=== PATIENT | male | born 1940 | race Caucasian/White ===

== ENCOUNTER 2016-10-18 18:22 | Emergency (ER) | payer OTHER, MEDICARE ==
[~2016-10-18] VITALS: Ht 170.2 cm; Wt 104.3 kg
[~2016-10-18 18:22] MED LIST: ACETAMINOPHEN325 M2 PO; ACIDOPHILUS1 EACH PO; BUPROPION XL150 MG PO; CARBIDOPA/LEVOD1 TA1 PO; CARVEDILOL3.125 MG PO; CIPRO 500MG TA500 MG PO; CLONAZEPAM1 MG PO; COLACE100 M1 PO; COLCHICINE0.6 M2 PO; DELTASONE20 MG PO; DRONABINOL2.5 M1 PO; ENULOSE10 GM/151 PO; FLOMAX0.4 M1 PO; FOLIC ACID0.4 M1 PO; IMDUR ER30 MG PO; IPRAT-ALBUT 0.5-3 ML INH; K-TAB ER20 MEQ PO; KLONOPIN1 M1 PO; LASIX80 M1 PO; LASIX80 MG PO; LIDODERM 5% PAT1 PAT EXT; LIDODERM 5% PAT1 PAT TOP; LIPITOR20 M2 PO; METALAZONE PO; METOLAZONE5 MG PO; OXYCONTIN15 M1 PO; PERCOCET 10-321 EACH PO; PERCOCET 325 MG1 TA2 PO; PERCOCET 325 MG1 TAB PO; PROAIR HFA0.09 MG/Ac INH; SENNA8.6 M3 PO; SINEMET 25-1001 EACH PO; SPIRIVA18 MCG INH; SPIRONOLACTONE25 MG PO; SYMBICORT 16010.2 GM INH; SYNTHROID125 MCG PO; TRADJENTA5 M1 PO; TRADJENTA5 MG PO; TRAZODONE HCL50 M1 PO; TUSSIN DM CLEA PO; VENTOLIN HFA18 GM INH; VITAMIN D31000 UNI1 PO; XARELTO15 MG PO
--- NOTE | 2016-10-18 18:38 | ED DYSPNEA/ASTHMA COMPLAINT ---
History of Present Illness General Chief Complaint: Dyspnea (COPD, CHF, Other) Stated Complaint: BIBA FOR SHORTNESS OF BREATH Source: patient, old records, EMS Exam Limitations: clinical condition, poor historian Vital Signs & Intake/Output Vital Signs & Intake/Output Vital Signs Date Time Temp Pulse Resp B/P Pulse O2 O2 Flow FiO2 Ox Delivery Rate 10/18 2103 97.9 105 18 153/66 99 Room Air 10/18 1840 100 Nasal 2.0L Cannula 10/18 1830 95.8 108 16 137/68 99 Nasal 4.0L Cannula ED Intake and Output 10/19 0000 10/18 1200 Intake Total Output Total Balance Patient 230 lb Weight Allergies Coded Allergies: NO KNOWN ALLERGIES (03/11/12) Reconcile Medications Acetaminophen 325 MG TABLET 2 TAB PO Q4P PRN FEVEER/GENERAL DISCOMFORT ( Reported) Albuterol Sulfate (Ventolin Hfa) 90 MCG HFA.AER.AD 2 PUF INH BID COPD ( Reported) Atorvastatin Calcium (Lipitor) 20 MG TABLET 1 TAB PO DAILY CHOLESTEROL ( Reported) Budesonide/Formoterol Fumarate (Symbicort 160-4.5 Mcg Inhaler) 160 MCG-4.5 MCG/ ACTUATION HFA.AER.AD 2 PUF INH BID COPD (Reported) Bupropion HCl (Bupropion XL) 150 MG TAB.ER.24H 1 TAB PO QAM MENTAL HEALTH ( Reported) Carbidopa/Levodopa (Sinemet 25-100 MG Tablet) 25 MG-100 MG TABLET 2 TAB PO TID PARKINSONS (Reported) Carbidopa/Levodopa (Carbidopa-Levo ER 25-100 Tab) 25 MG-100 MG TABLET.ER 1 TAB PO DAILY PARKINSONS (Reported) Cholecalciferol (Vitamin D3) (Vitamin D3) (Unknown Strength) CAPSULE (Unknown Dose) PO DAILY SUPPLEMENT (Reported) Clonazepam (Klonopin) 1 MG TABLET 1 TAB PO DAILY ANXIETY (Reported) Colchicine 0.6 MG TABLET 1 TAB PO DAILY UNK (Reported) Docusate Sodium (Colace) (Unknown Strength) CAPSULE (Unknown Dose) PO BID STOOL SOFTENER (Reported) Dronabinol 2.5 MG CAPSULE 1 CAP PO QAM CHRONIC PAIN (Reported) Folic Acid 0.4 MG TABLET 1 TAB PO DAILY SUPPLEMENT (Reported) Furosemide (Lasix) 80 MG TABLET 1 TAB PO DAILY DIURETIC (Reported) Ipratropium/Albuterol Sulfate (Iprat-Albut 0.5-3(2.5) MG/3 Ml) 0.5 MG-3 MG (2.5 MG BASE)/3 ML AMPUL.NEB 1 ELIZABETH INH Q12 COPD (Reported) Lactobacillus Acidophilus (Acidophilus) 1 EACH CAPSULE 1 CAP PO BID PROBIOTIC (Reported) Levothyroxine Sodium (Synthroid) 125 MCG TABLET 1 TAB PO DAILY THYROID ( Reported) Linagliptin (Tradjenta) 5 MG TABLET 1 TAB PO DAILY DM (Reported) Morphine Sulfate (Unknown Strength) TABLET (Unknown Dose) PO BID PAIN ( Reported) Oxycodone HCl/Acetaminophen (Percocet 10-325 MG Tablet) 10 MG-325 MG TABLET 1 TAB PO BID PAIN (Reported) Potassium Chloride (K-Tab ER) 20 MEQ TABLET.ER 1 TAB PO BID SUPPLEMENT ( Reported) WITH FOOD Rivaroxaban (Xarelto) 15 MG TABLET 1 TAB PO DAILY BLOOD THINNER (Reported) Sennosides (Senna) 8.6 MG TABLET 2 TAB PO QPM CONSTIPATION (Reported) Tamsulosin HCl (Flomax) 0.4 MG CAP.ER.24H 1 CAP PO DAILY PROSTATE (Reported) Tiotropium [place] (Spiriva) 18 MCG CAP.W.DEV 1 CAP INH DAILY COPD (Reported) Trazodone HCl 50 MG TABLET 1 TAB PO DAILY UNKNOWN (Reported) Triage Note: BIBA FROM HOME FOR DIFFICULTY BREATHING. PT LIVES ALONE WITH 24 HOUR CAREGIVERS. PT UNABLE TO PROVIDE HISTORY. REPORTEDLY WAS GIVEN 2 NEBULIZER TREATMENTS AT HOME AND THEN CAREGIVERS CALLED EMS. UPON ARRIVAL PT LETHARGIC BUT ORIENTED, ANSWERING SOME QUESTIONS BUT NOT ALL OF THEM. RESP RATE 16. SATS 98% ON 2L. PALE, SKIN COOL AND DRY. Triage Nurses Notes Reviewed? 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 Patient has history of CHF, COPD, Parkinson's disease. Patient has 24 hour home care. Patient reportedly appeared to be dyspneic at home. Patient was administered 2 nebulizer treatments and 911 was called. Symptoms are currently mild. Chronic lower extremity pain, unchanged. Patient denies cough, fevers, chills, chest pain. (RG DELA CRUZ,HEMALATHA) Past History Travel History Traveled to [place] past 21 day No Medical History Any Pertinent Medical History? see below for history Neurological: Parkinson's disease EENT: NONE Cardiovascular: AFIB, CAD, CHF, hypertension, hyperlipidemia Respiratory: NONE, obstructive sleep apnea Gastrointestinal: NONE Hepatic: NONE Renal: benign prost hyperplasia, chronic kidney disease Musculoskeletal: chronic back pain Psychiatric: depression Endocrine: diabetes, hypothyroidism Blood Disorders: NONE Cancer(s): bladder cancer GROUNDS RESTORATION SPECIALIST/Reproductive: NONE History of MRSA: No History of VRE: No History of CDIFF: No Surgical History Surgical History: non-contributory Psychosocial History Who do you live with Paid Attentent Services at Home Home Health Aide What is your primary language Kyrgyz Family History Family History, If Any: MOTHER Hip fracture Relation not specified for: *No pertinent family history Hx Contributory? No (HEMALATHA BAIG) Review of Systems Review of Systems Constitutional: Reports: malaise. Denies: chills, fever. EENTM: Reports: no symptoms. Respiratory: Reports: short of breath. Denies: cough. Cardiovascular: Reports: peripheral edema. Denies: chest pain, syncope. GI: Denies: abdominal pain, nausea, vomiting. Genitourinary: Reports: no symptoms. Musculoskeletal: Reports: back pain (chronic, unchanged). Neurological/Psychological: Denies: headache. Hematologic/Endocrine: Reports: no symptoms. Immunologic/Allergic: Reports: no symptoms. (HEMALATHA BAIG) Physical Exam Physical Exam General Appearance: awake, mildly lethargic, responds to questions Head: atraumatic, normal appearance Eyes: Bilateral: normal appearance, PERRL, EOMI. Ears, Nose, Throat: hearing grossly normal Neck: normal inspection, supple, full range of motion Respiratory: normal breath sounds, chest non-tender, no respiratory distress, lungs clear Cardiovascular: regular rate/rhythm, murmur Gastrointestinal: soft, non-tender Extremities: normal capillary refill, normal range of motion, 2+ bilateral lower extremity edema Neurologic/Psych: awake, mild lethargy Skin: warm/dry Lymphatic: no anterior cervical malick Core Measures ACS in differential dx? Yes ASA ordered for poss ACS? No-ACS ruled out Severe Sepsis Present: No Septic Shock Present: No (HEMALATHA BAIG) Progress Differential Diagnosis: AMI, bronchitis, CHF, COPD, pulmonary embolism, pneumonia, unstable angina Plan of Care: Orders Procedure Date/time Status ARTERIAL BLOOD GAS (GEN) 10/18 1849 Complete Telemetry/Dust Puller 10/18 1849 Active TROPONIN LEVEL 10/18 1849 Complete COMPREHENSIVE METABOLIC PANEL 10/18 1849 Complete CBC WITHOUT DIFFERENTIAL 10/18 1849 Complete B-TYPE NATRIURETIC PEP (BNP) 10/18 1849 Complete EKG 10/18 1822 Active Laboratory Tests 10/18/161920: Anion Gap 11, Estimated GFR 34 L, BUN/Creatinine Ratio 20.0, Glucose 104 H, Calcium 9.2, Total Bilirubin 0.5, AST 18, ALT 21, Alkaline Phosphatase 74, Troponin I 0.04, [id number]-Z-Mgduysoixhv Pept 2420 H, Total Protein 6.9, Albumin 3.6, Globulin 3.3, Albumin/Globulin Ratio 1.1, CBC w Diff NO MAN DIFF REQ, RBC 3.56 L, MCV 89.5, MCH 29.0, RDW 15.6 H, MPV 8.8, Gran % 71.6, Lymphocytes % 14.4 L, Monocytes % 10.8 H, Eosinophils % 2.7, Basophils % 0.5, Absolute Granulocytes 5.8, Absolute Lymphocytes 1.2, Absolute Monocytes 0.9 H, Absolute Eosinophils 0.2, Absolute Basophils 0, PUBS MCHC 32.4 L 10/18/161899: pH 7.47 H, pCO2 39, pO2 69 L, HCO3 28, ABG O2 Sat (Measured) 94.0 L, P-50 ( Temp Corrected) Y, Carboxyhemoglobin 0.2 L, O2 Concentration % R/A, Temperature 95.8 L, Phlebotomy Draw Site LEFT RADIAL 10/18/2016 9:20:20 PM: Patient becoming more alert. No acute changes on labs or imaging. Discussed with Dr. Douglas. Patient has an appointment with his biometrics specialist this week. Appears stable for discharge. (RG DELA CRUZ,HEMALATHA) Diagnostic Imaging: Viewed by Me: Radiology Read. Discussed w/RAD: Radiology Read. CXR Impression: PATIENT: ANDRE GERBER PRESENT AGE: 76 PATIENT ACCOUNT NO: [id number] : 38 LOCATION: [facility] ORDERING PHYSICIAN: HEMALATHA DELA CRUZ SERVICE DATE: 10/18/16-1849 EXAM TYPE: RAD - XRY- PORTABLE CHEST XRAY EXAMINATION: XR PORTABLE CHEST CLINICAL INFORMATION: Dyspnea. Lower extremity swelling. Evaluate for congestive heart failure, pneumonia. COMPARISON: Multiple priors, most recent chest radiograph dated 08/28. TECHNIQUE: Portable AP semiupright view of the chest was obtained. FINDINGS: Sternal wires and mediastinal surgical clips are re-demonstrated. Severe degenerative changes are again noted within the bilateral glenohumeral joints. No airspace consolidation. No pleural effusion or pneumothorax. Stable cardiomediastinal silhouette. IMPRESSION: No airspace consolidation. No significant interval change since the prior examination. DICTATED BY: ZEESHAN BERMUDEZ MD DATE/TIME DICTATED:10/18/161924 MARINE FITTER:SINCERE DATE/TIME TRANSCRIBED:10/18/161924 CONFIDENTIAL, DO NOT COPY WITHOUT APPROPRIATE AUTHORIZATION. <Electronically signed in Other Vendor System> SIGNED BY: ZEESHAN BERMUDEZ MD 10/18/161932 Initial ED EKG: sinus tachycardia 170/m, left anterior fascicular block, no significant acute ST/T-wave changes compared to previous EKG Prior EKG: unchanged Rhythm Strip: sinus tachycardia (HEMALATHA BAIG) Departure Departure Disposition: HOME OR SELF CARE Condition: Stable Clinical Impression Primary Impression: Dyspnea Qualifiers: Dyspnea type: unspecified Qualified Code: R06.00 - Dyspnea, unspecified Referrals: Coby ALLAN MD (PCP/Family) Additional Instructions: Follow-up with your biometrics specialist this week as scheduled. Return to the emergency department if breathing worsening or worsening symptoms. Departure Forms: Customer Survey General Discharge Information (HEMALATHA BAIG) PA/DATE PITTER Co-Sign Statement Statement: ED Attending supervision documentation- [] I saw and evaluated the patient. I have also reviewed all the pertinent lab results and diagnostic results. I agree with the findings and the plan of care as documented in the PA's/DATE PITTER's documentation. [x] I have reviewed the ED Record and agree with the PA's/DATE PITTER's documentation. [] Additions or exceptions (if any) to the PAs/DATE PITTER's note and plan are summarized below: [] (MU JEAN,ADILENE Deras) Critical Care Note Critical Care Note Critical Care Time: non-applicable (HEMALATHA BAIG)
[2016-10-18] MEDS ORDERED: TRADJENTA5 M1 PO (18:57)
[2016-10-18] MEDS ORDERED: XARELTO15 M1 PO (18:57)
[2016-10-18] MEDS ORDERED: CARBIDOPA-LEVO1 EA10 PO (18:59)
[2016-10-18] MEDS ORDERED: MORPHINE SULFAT15 M4 PO (19:01)
[2016-10-18 19:29] LABS: ABSOLUTE BASOPHIL COUNT 0 /CUMM (0.0-0.2); ABSOLUTE EOSINOPHIL COUNT 0.2 /CUMM (0.0-0.7); ABSOLUTE GRANULOCYTE CT 5.8 /CUMM (1.4-6.5); ABSOLUTE LYMPH COUNT 1.2 /CUMM (1.2-3.4); ABSOLUTE MONOCYTE COUNT 0.9 /CUMM (0.10-0.60); BASOPHIL % 0.5 % (0.0-2.0); EOSINOPHIL % 2.7 % (0-5); GRANULOCYTE % 71.6 % (42.2-75.2); HEMATOCRIT 31.8 % (42-52); MEAN CORPUSCULAR HGB CONC 32.4 G/DL (33.0-37.0); MEAN CORPUSCULAR VOLUME 89.5 FL (80.0-94.0); MEAN PLATELET VOLUME 8.8 FL (7.4-10.4); PLATELET COUNT 178 /CUMM (130-400); RBC DISTRIBUTION WIDTH 15.6 % (11.5-14.5); RED BLOOD CELL CT 3.56 /CUMM (4.70-6.10); WHITE BLOOD CELL COUNT 8.1 /CUMM (4.8-10.8)
--- NOTE | 2016-10-18 19:33 | RADIOLOGY REPORT ---
EXAMINATION: XR PORTABLE CHEST CLINICAL INFORMATION: Dyspnea. Lower extremity swelling. Evaluate for congestive heart failure, pneumonia. COMPARISON: Multiple priors, most recent chest radiograph dated 08/28/2016. TECHNIQUE: Portable AP semiupright view of the chest was obtained. FINDINGS: Sternal wires and mediastinal surgical clips are re-demonstrated. Severe degenerative changes are again noted within the bilateral glenohumeral joints. No airspace consolidation. No pleural effusion or pneumothorax. Stable cardiomediastinal silhouette. IMPRESSION: No airspace consolidation. No significant interval change since the prior examination.
[2016-10-18 21:04] VITALS: BP 153/66
== END 2016-10-18 21:44 ==
LOC: ERH 18:22
PROVIDERS: Physician Assistant
DX: R06.00 Dyspnea, unspecified (principal)
CPT/HCPCS: 93005; 93010

== ENCOUNTER 2017-01-21 19:48 | Emergency (ER) | payer OTHER, MEDICARE ==
[~2017-01-21 19:48] MED LIST changes: +CARBIDOPA-LEVO1 EA10 PO; +MORPHINE SULFAT15 M4 PO; +XARELTO15 M1 PO
--- NOTE | 2017-01-21 20:11 | ED DYSPNEA/ASTHMA COMPLAINT ---
History of Present Illness General Chief Complaint: Dyspnea (COPD, CHF, Other) Stated Complaint: BIBA FOR SHORTNESS OF BREATH Source: patient, old records, EMS Exam Limitations: dementia Vital Signs & Intake/Output Vital Signs & Intake/Output Vital Signs Date Time Temp Pulse Resp B/P B/P Pulse O2 O2 Flow FiO2 Mean Ox Delivery Rate 01/21 2139 98.7 87 18 125/60 97 Room Air 01/21 2042 100 Room Air 01/21 2001 98.5 85 18 134/58 100 Room Air Allergies Coded Allergies: NO KNOWN ALLERGIES (03/11/12) Reconcile Medications Albuterol Sulfate (Ventolin Hfa) 90 MCG HFA.AER.AD 2 PUF INH BID PRN COPD ( Reported) Atorvastatin Calcium (Lipitor) 20 MG TABLET 1 TAB PO DAILY CHOLESTEROL ( Reported) Budesonide/Formoterol Fumarate (Symbicort 160-4.5 Mcg Inhaler) 160 MCG-4.5 MCG/ ACTUATION HFA.AER.AD 2 PUF INH BID COPD (Reported) Bupropion HCl (Bupropion XL) 150 MG TAB.ER.24H 1 TAB PO QAM MENTAL HEALTH ( Reported) Carbidopa/Levodopa (Sinemet 25-100 MG Tablet) 25 MG-100 MG TABLET 2 TAB PO TID PARKINSONS (Reported) Carbidopa/Levodopa (Carbidopa-Levo ER 25-100 Tab) 25 MG-100 MG TABLET.ER 1 TAB PO DAILY PARKINSONS (Reported) Cholecalciferol (Vitamin D3) (Vitamin D3) (Unknown Strength) CAPSULE (Unknown Dose) PO DAILY SUPPLEMENT (Reported) Clonazepam (Klonopin) 1 MG TABLET 1 TAB PO DAILY ANXIETY (Reported) Colchicine 0.6 MG TABLET 1 TAB PO DAILY UNK (Reported) Docusate Sodium (Colace) (Unknown Strength) CAPSULE (Unknown Dose) PO BID STOOL SOFTENER (Reported) Dronabinol 2.5 MG CAPSULE 1 CAP PO QAM CHRONIC PAIN (Reported) Fentanyl (Duragesic) 25 MCG/HOUR PATCH.TD72 1 PAT TOP AD PAIN (Reported) Furosemide (Lasix) 80 MG TABLET 1 TAB PO DAILY DIURETIC (Reported) Ipratropium/Albuterol Sulfate (Iprat-Albut 0.5-3(2.5) MG/3 Ml) 0.5 MG-3 MG (2.5 MG BASE)/3 ML AMPUL.NEB 1 ELIZABETH INH Q12 COPD (Reported) Levothyroxine Sodium (Synthroid) 125 MCG TABLET 1 TAB PO DAILY THYROID ( Reported) Linagliptin (Tradjenta) 5 MG TABLET 1 TAB PO DAILY DM (Reported) Oxycodone HCl/Acetaminophen (Percocet 10-325 MG Tablet) 10 MG-325 MG TABLET 1 TAB PO BID PAIN (Reported) Potassium Chloride (K-Tab ER) 20 MEQ TABLET.ER 1 TAB PO BID SUPPLEMENT ( Reported) WITH FOOD Rivaroxaban (Xarelto) 15 MG TABLET 1 TAB PO DAILY BLOOD THINNER (Reported) Sennosides (Senna) 8.6 MG TABLET 2 TAB PO QPM CONSTIPATION (Reported) Tamsulosin HCl (Flomax) 0.4 MG CAP.ER.24H 1 CAP PO DAILY PROSTATE (Reported) Tiotropium [place] (Spiriva) 18 MCG CAP.W.DEV 1 CAP INH DAILY COPD (Reported) Trazodone HCl 50 MG TABLET 1 TAB PO DAILY UNKNOWN (Reported) Vitamin B Complex 1 EACH CAPSULE 1 CAP PO DAILY SUPPLEMENT (Reported) Core Measure Meds Pre-Hospital xarelto Triage Note: PT BIBA AFTER PT COMPLAINT TO FAMILY AND EDGER HAND THAT HE FELT SOB. PER EMT REPORT PT HAS HAD STABLE VS, NO EXERTION WITH RESPIRATION, O2 SAT OF 98% ON RA. #20 TO LFA. NO MEDICATION GIVEN ON ROUTE. Triage Nurses Notes Reviewed? yes Onset: Just prior to arrival Duration: minute(s):, better Timing: recent history Severity: mild Activities at Onset: rest Prior Episodes/Possible Cause: frequent episodes Modifying Factors: Improves With: rest. Associated Symptoms: edema, weakness HPI: Prior to admission patient complained that he was short of breath. Currently he complains of chest pain unable to describe. He denies fever chills nausea vomiting diarrhea abdominal pain headache dysuria rash bleeding. Past History Travel History Traveled to [place] past 21 day No Medical History Any Pertinent Medical History? 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 No Review of Systems Review of Systems Constitutional: Reports: no symptoms. EENTM: Reports: no symptoms. Respiratory: Reports: see HPI, short of breath. Cardiovascular: Reports: see HPI, chest pain. GI: Reports: no symptoms. Genitourinary: Reports: no symptoms. Musculoskeletal: Reports: no symptoms. Skin: Reports: no symptoms. Neurological/Psychological: Reports: no symptoms. Hematologic/Endocrine: Reports: no symptoms. Immunologic/Allergic: Reports: no symptoms. All Other Systems: Reviewed and Negative Physical Exam Physical Exam General Appearance: well developed/nourished, alert, awake, comfortable Head: atraumatic, normal appearance Eyes: Bilateral: normal appearance, PERRL, EOMI. Ears, Nose, Throat: normal pharynx, normal ENT inspection Neck: normal inspection, supple, full range of motion, no midline tenderness Respiratory: chest non-tender, no respiratory distress, quiet respiration, crackles Cardiovascular: normal peripheral pulses, systolic murmur, irregularly irregular Peripheral Pulses: 4+ carotid (R), 4+ carotid (L) Gastrointestinal: normal bowel sounds, soft, non-tender, no organomegaly Extremities: limited range of motion, pedal edema Neurologic/Psych: awake, alert, psychologist clinical II-XII nml as tested, depressed affect Skin: rash (stasis dermatitis BLE) Lymphatic: no anterior cervical malick Core Measures ACS in differential dx? Yes ASA ordered for poss ACS? No-other contraindication Severe Sepsis Present: No Septic Shock Present: No Progress Differential Diagnosis: AMI, CHF, COPD, pneumonia Plan of Care: Orders Procedure Date/time Status TROPONIN LEVEL 01/22 2008 Complete PROTHROMBIN TIME 01/22 2008 Complete MAGNESIUM 01/22 2008 Complete COMPREHENSIVE METABOLIC PANEL 01/22 2008 Complete CBC WITHOUT DIFFERENTIAL 01/22 2008 Complete B-TYPE NATRIURETIC PEP (BNP) 01/22 2008 Complete EKG 01/21 1950 Active Laboratory Tests 01/21/172037: Anion Gap 13, Estimated GFR 42 L, BUN/Creatinine Ratio 23.8, Glucose 89, Calcium 8.4, Magnesium 1.7, Total Bilirubin 0.4, AST 13 L, ALT 30, Alkaline Phosphatase 56, Troponin I 0.04, Hrj-T-Jbuysuekzjz Pept 3070 H, Total Protein 6.4, Albumin 3.3 L, Globulin 3.1, Albumin/Globulin Ratio 1.1, PT 17.2 H, INR 1.65 H, CBC w Diff NO MAN DIFF REQ, RBC 3.27 L, MCV 91.2, MCH 29.7, RDW 15.3 H, MPV 8.1, Gran % 62.7, Lymphocytes % 20.3 L, Monocytes % 12.9 H, Eosinophils % 3.7, Basophils % 0.4, Absolute Granulocytes 4.7, Absolute Lymphocytes 1.5, Absolute Monocytes 1.0 H, Absolute Eosinophils 0.3, Absolute Basophils 0, PUBS MCHC 32.6 L Diagnostic Imaging: Viewed by Me: Radiology Read. Discussed w/RAD: Radiology Read. CXR Impression: Examination as the right costophrenic angle is outside the field -of-view the exam. Hazy opacity overlying the midlung of uncertain significance. This may be artifactual related to overlying soft tissue density. Suggest repeat chest x-ray as felt clinically necessary Initial ED EKG: AFIB, no ST T wave changes Prior EKG: changed Rhythm Strip: atrial fibrillation Departure Departure Time of Disposition: 2138 Disposition: HOME OR SELF CARE Condition: Stable Clinical Impression Primary Impression: CHF (congestive heart failure) Qualifiers: Congestive heart failure type: unspecified congestive heart failure type Congestive heart failure chronicity: acute on chronic Qualified Code: I50.9 - Heart failure, unspecified Referrals: Coby ALLAN MD Additional Instructions: Give extra lasix dose tonight. Departure Forms: Customer Survey General Discharge Information Critical Care Note Critical Care Note Critical Care Time: non-applicable
--- NOTE | 2017-01-21 20:26 | RADIOLOGY REPORT ---
EXAMINATION: XR PORTABLE CHEST CLINICAL INFORMATION: CHF. Rales compatible edema shortness of breath COMPARISON: Prior chest x-ray October 2016 TECHNIQUE: Portable frontal view of the chest was obtained. FINDINGS: Exam is limited as the right costophrenic angle is outside the [id number] with examination. Subtle opacity overlying the right midlung of uncertain etiology and significance. It is possible this could reflect overlying soft tissue density given its hazy appearance. Left lung clear. Sternotomy wires. Cardiac silhouette within normal limits. Pulmonary vascularity normal. IMPRESSION: Examination as the right costophrenic angle is outside the [id number] the exam. Hazy opacity overlying the midlung of uncertain significance. This may be artifactual related to overlying soft tissue density. Suggest repeat chest x-ray as felt clinically necessary
[2017-01-21] MEDS ORDERED: DURAGESIC1 EACH TOP (20:32)
[2017-01-21] MEDS ORDERED: VITAMIN B COMP1 EACH PO (20:42)
[2017-01-21 20:46] LABS: ABSOLUTE BASOPHIL COUNT 0 /CUMM (0.0-0.2); ABSOLUTE EOSINOPHIL COUNT 0.3 /CUMM (0.0-0.7); ABSOLUTE GRANULOCYTE CT 4.7 /CUMM (1.4-6.5); ABSOLUTE LYMPH COUNT 1.5 /CUMM (1.2-3.4); BASOPHIL % 0.4 % (0.0-2.0); EOSINOPHIL % 3.7 % (0-5); GRANULOCYTE % 62.7 % (42.2-75.2); HEMATOCRIT 29.8 % (42-52); MEAN CORPUSCULAR HGB 29.7 PG (27.0-31.0); MEAN CORPUSCULAR HGB CONC 32.6 G/DL (33.0-37.0); MEAN CORPUSCULAR VOLUME 91.2 FL (80.0-94.0); MEAN PLATELET VOLUME 8.1 FL (7.4-10.4); PLATELET COUNT 184 /CUMM (130-400); RBC DISTRIBUTION WIDTH 15.3 % (11.5-14.5); RED BLOOD CELL CT 3.27 /CUMM (4.70-6.10); WHITE BLOOD CELL COUNT 7.5 /CUMM (4.8-10.8)
[2017-01-21 20:51] LABS: PT 17.2 SEC (9.4-12.5)
[2017-01-21 21:39] VITALS: BP 125/60
== END 2017-01-21 21:55 ==
LOC: ERH 19:48
PROVIDERS: Emergency Medicine
DX: I50.9 Heart failure, unspecified (principal)
CPT/HCPCS: 93005; 93010

== ENCOUNTER 2017-10-21 15:05 | Inpatient (IN) | payer OTHER, MEDICARE ==
[~2017-10-21] VITALS: Ht 172.7 cm; Wt 80.9 kg
[~2017-10-21 15:05] MED LIST changes: +ALBUTEROL2.5 MG/3 M INH/SOL; +DURAGESIC1 EACH TOP; +VITAMIN B COMP1 EACH PO
--- NOTE | 2017-10-21 15:09 | ED DYSPNEA/ASTHMA COMPLAINT ---
See Addendum History of Present Illness General Chief Complaint: General Adult Stated Complaint: BIBA, LETHARGY Source: patient Exam Limitations: clinical condition, confusion Vital Signs & Intake/Output Vital Signs & Intake/Output Vital Signs Date Time Temp Pulse Resp B/P B/P Pulse O2 O2 Flow FiO2 Mean Ox Delivery Rate 10/21 1850 95 20 136/55 98 Room Air 10/21 1837 100 Room Air 10/21 1825 97.0 97 20 100/60 100 Room Air 10/21 1810 97.4 100 20 124/60 100 Room Air 10/21 1740 102 20 108/55 98 Room Air 10/21 1726 96 20 108/54 98 Room Air 10/21 1703 97.4 88 20 104/50 100 Room Air 10/21 1652 96 10/21 1645 101 20 98 Room Air 10/21 1553 95 20 116/46 100 Room Air 10/21 1514 90 20 93/55 97 Room Air Allergies Coded Allergies: NO KNOWN ALLERGIES (03/11/12) Reconcile Medications Atorvastatin Calcium (Lipitor) 20 MG TABLET 1 TAB PO DAILY CHOLESTEROL ( Reported) Bupropion HCl (Bupropion XL) 150 MG TAB.ER.24H 1 TAB PO QAM MENTAL HEALTH ( Reported) Carbidopa/Levodopa (Sinemet 25-100 MG Tablet) 25 MG-100 MG TABLET 2 TAB PO TID PARKINSONS (Reported) Carbidopa/Levodopa (Carbidopa-Levo ER 25-100 Tab) 25 MG-100 MG TABLET.ER 1 TAB PO QPM PARKINSONS (Reported) Cholecalciferol (Vitamin D3) (Vitamin D3) (Unknown Strength) CAPSULE (Unknown Dose) PO DAILY SUPPLEMENT (Reported) Clonazepam (Klonopin) 1 MG TABLET 1 TAB PO DAILY ANXIETY (Reported) Colchicine 0.6 MG TABLET 1 TAB PO DAILY UNK (Reported) Docusate Sodium (Colace) (Unknown Strength) CAPSULE (Unknown Dose) PO BID STOOL SOFTENER (Reported) Dronabinol 2.5 MG CAPSULE 1 CAP PO QAM CHRONIC PAIN (Reported) Fentanyl (Duragesic) 25 MCG/HOUR PATCH.TD72 1 PAT TOP Q3D PAIN (Reported) Furosemide (Lasix) 80 MG TABLET 1 TAB PO DAILY DIURETIC (Reported) Levothyroxine Sodium (Synthroid) 125 MCG TABLET 1 TAB PO DAILY THYROID ( Reported) Linagliptin (Tradjenta) 5 MG TABLET 1 TAB PO DAILY DM (Reported) Morphine Sulfate 15 MG TABLET 1 TAB PO 1400 PAIN (Reported) Oxycodone HCl/Acetaminophen (Percocet 10-325 MG Tablet) 10 MG-325 MG TABLET 1 TAB PO BID PAIN (Reported) Potassium Chloride (K-Tab ER) 20 MEQ TABLET.ER 1 TAB PO BID SUPPLEMENT ( Reported) WITH FOOD Rivaroxaban (Xarelto) 15 MG TABLET 1 TAB PO DAILY BLOOD THINNER (Reported) Sennosides (Senna) 8.6 MG TABLET 2 TAB PO QPM CONSTIPATION (Reported) Tamsulosin HCl (Flomax) 0.4 MG CAP.ER.24H 1 CAP PO DAILY PROSTATE (Reported) Vitamin B Complex 1 EACH CAPSULE 1 CAP PO DAILY SUPPLEMENT (Reported) Triage Nurses Notes Reviewed? yes Onset: Abrupt Duration: day(s): Timing: recent history Severity: mild HPI: 77-year-old male brought in for increased weakness and outpatient x-ray which showed pneumonia. Patient comes from home. He has altered mental status is not able to offer much information. EMT reports that he was diagnosed with pneumonia is now patient has had increased weakness. He is usually able to stand and. That is been laying in bed. Unable to provide any more information at this time. (Marvin Petty) Past History Travel History Traveled to [place] past 21 day No Medical History Any Pertinent Medical History? see below for history Neurological: dementia, Parkinson's disease EENT: NONE Cardiovascular: AFIB, CAD, CHF, hypertension, hyperlipidemia Respiratory: NONE, obstructive sleep apnea Gastrointestinal: NONE Hepatic: NONE Renal: benign prost hyperplasia, chronic kidney disease Musculoskeletal: chronic back pain Psychiatric: depression Endocrine: diabetes, hypothyroidism Blood Disorders: NONE Cancer(s): bladder cancer DIRECTOR SPEECH AND HEARING/Reproductive: NONE History of MRSA: No History of VRE: No History of CDIFF: No Surgical History Surgical History: non-contributory Psychosocial History Who do you live with Paid Attentent Services at Home Home Health Aide What is your primary language Upper Sorbian Family History Family History, If Any: MOTHER Hip fracture Relation not specified for: *No pertinent family history Hx Contributory? No (Marvin Petty) Review of Systems Review of Systems Constitutional: Reports: see HPI. EENTM: Reports: no symptoms. Respiratory: Reports: see HPI. Cardiovascular: Reports: no symptoms. GI: Reports: no symptoms. Genitourinary: Reports: no symptoms. Musculoskeletal: Reports: no symptoms. Skin: Reports: no symptoms. Neurological/Psychological: Reports: see HPI. Hematologic/Endocrine: Reports: no symptoms. Immunologic/Allergic: Reports: no symptoms. All Other Systems: Reviewed and Negative (Marvin Petty) Physical Exam Physical Exam General Appearance: lethargic, mild distress, thin Head: atraumatic Eyes: Bilateral: normal appearance. Ears, Nose, Throat: normal ENT inspection, hearing decreased Neck: normal inspection Respiratory: no respiratory distress, decreased breath sounds Cardiovascular: regular rate/rhythm Gastrointestinal: soft Extremities: no edema Neurologic/Psych: disoriented x 3 Skin: intact, normal color Core Measures ACS in differential dx? No CVA/TIA Diagnosis No Sepsis Present: Yes Sepsis Focused Exam Completed? Yes (Marvin Petty) Progress Differential Diagnosis: asthma, AMI, bronchitis, pneumonia, UTI, CVA, SEPSIS Plan of Care: Orders Procedure Date/time Status Patient Data 10/21 1942 Active Admit to inpatient 10/21 1926 Active RAPID VIRAL INFLUENZA A 10/21 1925 Active LACTIC ACID 10/21 1809 Complete BLOOD PRODUCT PICKUP 10/21 1756 Active TYPE & SCREEN (NOT X-MATCH) 10/21 1708 Active LOWER RESPIRATORY CULTURE 10/21 1641 Active Carbajal, Insertion/Removal/Asses 10/21 1621 Active CULTURE,URINE 10/21 1621 Active LEUKOCYTE POOR (PACKED CELLS) 10/21 1609 Active Add-on Test (ER Only) 10/[address] HEAD WO IV CONTRAST 10/21 1516 Active XRY-PORTABLE CHEST XRAY 10/21 1509 Active BLOOD CULTURE 10/21 1509 Active URINALYSIS 10/21 1509 Complete TROPONIN LEVEL 10/21 1509 Complete LACTIC ACID 10/21 1509 Complete COMPREHENSIVE METABOLIC PANEL 10/21 1509 Complete CBC WITHOUT DIFFERENTIAL 10/21 1509 Complete EKG 10/21 1509 Active Current Medications Sig/Cedrick Start time Last Medication Dose Stop Time Status Admin Sodium Chloride 500 ML BOLUS ONE 10/21 1915 AC 10/21 (Normal Saline 0.9%) 10/21 2013 1900 Sodium Chloride See Dose ONCE ONE 10/21 1630 UNir 10/21 (Normal Saline 0.9%) Insts (1) 10/21 1631 1700 Dose Instructions: (1)Sodium Chloride (Normal Saline 0.9%): FOR USE IN SEPSIS PROTOCOL INFUSE TOTAL AMOUNT OVER 2.5 HOURS Laboratory Tests 10/21/17 1814: Lactic Acid 4.0 H 10/21/17 1640: Urinalysis HEAVY H, Urine Color BROWN H, Urine Clarity TURBD H, Urine pH 5.0, Ur Specific [place] 1.025, Urine Protein >=300 H, Urine Ketones TRACE H, Urine Nitrite POS H, Urine Bilirubin MOD H, Urine Urobilinogen 1.0, Ur Leukocyte Esterase LARGE H, Ur Microscopic SEDIMENT EXAMINED, Urine RBC 5-10 H, Urine WBC PACKD H, Urine Bacteria MOD H, Urine Hemoglobin LARGE H, Urine Glucose NEG 10/21/17 1540: Anion Gap 19 H, Estimated GFR 17 L, BUN/Creatinine Ratio 34.0 H, Glucose 189 H, Lactic Acid 3.0 H, Calcium 8.5, Total Bilirubin 0.4, AST 75 H, ALT 24, Alkaline Phosphatase 117, Troponin I 0.22 *H, Total Protein 6.9, Albumin 3.2 L, Globulin 3.7, Albumin/Globulin Ratio 0.9 L, CBC w Diff NO MAN DIFF REQ, RBC 2.54 L, MCV 88.6, MCH 28.5, MCHC 32.1 L, RDW 17.0 H, MPV 9.1, Gran % 93.6 H, Lymphocytes % 3.0 L, Monocytes % 3.4, Eosinophils % 0, Basophils % 0, Absolute Granulocytes 25.2 H, Absolute Lymphocytes 0.8 L, Absolute Monocytes 0.9 H, Absolute Eosinophils 0, Absolute Basophils 0 Microbiology 10/21 193 NASOPHARYN: Influenza Virus A & B Rapid Smear - RECD 10/21 1641 LOWER RESP: Respiratory Culture - ORD 10/21 1641 LOWER RESP: Gram Stain - ORD 10/21 1640 URINE ROUT: Urine Culture - RECD 10/21 1632 BLOOD: Blood Culture - RECD 10/21 1540 BLOOD: Blood Culture - RECD Diagnostic Imaging: Viewed by Me: Radiology Read, CT Scan. Discussed w/RAD: Radiology Read, CT Scan. Initial ED EKG: normal sinus rhythm, ST elevation (III, aVF), ST depression (I, V5, V6) (Rex DELA CRUZ,Marvin) Departure Departure Disposition: STILL A PATIENT Condition: Stable Clinical Impression Primary Impression: Sepsis Secondary Impressions: Acute renal failure, Hyperkalemia, ST elevation (STEMI) myocardial infarction Referrals: Gertrude JEAN,Reginald Guevara (PCP/Family) Departure Forms: Customer Survey General Discharge Information Comments 10/21/2017 3:58:58 PM EKG reveals what looks to be a inferior wall AK. Cardiology was paged immediately and Dr. Mendiola has reviewed the EKG. his significant other that has been with him for 30 years reports that she does not want intubation or chest compressions. She reports that the patient has made it clear in the past that he wants to be a DNR/DNI. (Marvin Petty) Departure Comments I saw and personally examined the patient and I agree with the PAs evaluation and care. Altered mental status. Severe anemia. Leukocytosis. Probable sepsis. EKG shows inferior ST segment elevation AK-this was discussed with Fidel Rai MD. The patient was admitted to the ICU. He is DNR/DNI. (Maury ORDOÑEZ,Dimitris Ruano) ED Sepsis Exam Date of Focused Sepsis Exam: 10/21/17 Time of Focused Sepsis Exam: 1314 Sepsis Cardiac Exam: Regular Rate/Rhythm Sepsis Resp Exam: decreased Sepsis Cap Refill Exam: <2 Sec Sepsis Peripheral Pulse Exam: Normal Sepsis Peripheral Pulse Location: Radial Sepsis Skin Color Exam: Pale Skin Temp/Moisture Exam: Cool/Dry (Marvin Petty) Critical Care Note Critical Care Note Critical Care Time: 30-74 min (75) (Marvin Petty)
[2017-10-21] MEDS ORDERED: MORPHINE SULFAT15 M4 PO ×2 (15:39→22:32)
[2017-10-21 15:58] LABS: ABSOLUTE BASOPHIL COUNT 0 /CUMM (0.0-0.2); ABSOLUTE EOSINOPHIL COUNT 0 /CUMM (0.0-0.7); ABSOLUTE GRANULOCYTE CT 25.2 /CUMM (1.4-6.5); ABSOLUTE LYMPH COUNT 0.8 /CUMM (1.2-3.4); ABSOLUTE MONOCYTE COUNT 0.9 /CUMM (0.10-0.60); BASOPHIL % 0 % (0.0-2.0); EOSINOPHIL % 0 % (0-5); HEMATOCRIT 22.5 % (42-52); MEAN CORPUSCULAR HGB 28.5 PG (27.0-31.0); MEAN CORPUSCULAR HGB CONC 32.1 G/DL (33.0-37.0); MEAN CORPUSCULAR VOLUME 88.6 FL (80.0-94.0); MEAN PLATELET VOLUME 9.1 FL (7.4-10.4); PLATELET COUNT 334 /CUMM (130-400); RED BLOOD CELL CT 2.54 /CUMM (4.70-6.10)
[2017-10-21 16:15] LABS: GRANULOCYTE % 93.6 % (42.2-75.2)
--- NOTE | 2017-10-21 21:20 | CT SCAN REPORT ---
EXAMINATION: CT ABDOMEN AND PELVIS WITHOUT CONTRAST CLINICAL INFORMATION: Bladder cancer. Sepsis. No hydronephrosis. COMPARISON: 10/01/2015. TECHNIQUE: Contiguous axial thin section helical images of the abdomen and pelvis were performed without oral or IV contrast. The data set was reformatted in the coronal and sagittal planes and reviewed on an independent workstation. DLP: 502 mGy-cm. FINDINGS: There is a lateral basal segment right lower lobe infiltrate. There is medial left lower lobe airspace disease. The visualized portions of the heart are unremarkable. The liver is of normal size and attenuation without focal lesions nor intrahepatic biliary ductal dilation. A normal gallbladder is identified. There is no wall thickening or discernible pericholecystic fluid. The spleen, pancreas, adrenal glands are unremarkable. There is right grade 3 hydroureteronephrosis. There is moderate right hydroureter without a discernible obstructive calculus. There are nonobstructive calculi within the right kidney. The largest is within the interpole region measuring approximately 6 mm. There is no left hydronephrosis. There are left renal arterial vascular calcifications present. There is no abdominal free fluid. There is neither mesenteric nor retroperitoneal lymphadenopathy. There is sigmoid diverticulosis without evidence of diverticulitis; otherwise, unremarkable unopacified loops of small and large bowel are identified. There is no pelvic free fluid. The urinary bladder is partially filled. A Carbajal catheter is in place. There is neither pelvic nor inguinal lymphadenopathy. Bone windows: Neither sclerotic nor lytic bone lesions are identified. There is disc height loss within the lower lumbar spine. IMPRESSION: Right grade 3 hydroureteronephrosis without a demonstrable obstructive calculus. There are nonobstructive renal calculi. Diverticulosis without evidence of diverticulitis. Bilateral lower lobe infiltrates, right greater than left.
--- NOTE | 2017-10-21 21:25 | History & Physical ---
Mann Dunaway 10/21/172124: General Information and HPI MD Statement: I have seen and personally examined ZABRINAVALENTE and documented this H&P. Source of Information: old records, friend Exam Limitations: unable to give history, not alert/orientated, clinical condition History of Present Illness: This is a 77-year-old male with past medical history significant for chronic back pain, atrial fibrillation on Xarelto, CAD, CHF, hypertension, hyperlipidemia, BPH, bladder cancer, Parkinson's disease who was brought to the hospital for weakness, altered mental status, and leukocytosis. The patient is not able to provide any history. History was obtained from patient's friend Ms. Subha Vael. According to Ms. Vale, the patient lives with a home designer, he has been feeling weaker compared to his baseline for the past week also noted to have hematuria. He was seen by his PCP yesterday and was started on Cefuroxime for suspected pneumonia. During the office visit, labs were obtained. The PCP called and notified them that the patient needs to go to the emergency room because WBC is elevated to 25,000. The patient was not noted to have any fever, chills, chest pain, difficulty breathing at home. 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 She also mentions that the patient does not have any living will or POA assigned and she is not comfortable making decisions whether patient should be DNI DNR. Ms. Vale also spoke with patient's daughter was not comfortable signing DNI/DNR order. I asked if the daughter wants to be involved in medical decision making and informing case there is any change in patient's status, per Petar Akanksha, the daughter does not want to be involved in medical decision making and will communicate with Ms. Vale if necessary. Allergies/Medications Allergies: Coded Allergies: NO KNOWN ALLERGIES (03/11/12) Home Med list Atorvastatin Calcium (Lipitor) 20 MG TABLET 1 TAB PO DAILY Hyperlipidemia ( Reported) Bupropion HCl (Bupropion XL) 150 MG TAB.ER.24H 1 TAB PO DAILY Mental health ( Reported) Carbidopa/Levodopa (Carbidopa-Levodopa 25-100 Tab) 25 MG-100 MG TABLET 2 TAB PO TID Parkinson (Reported) Docusate Sodium (Colace) 100 MG CAPSULE 1 CAP PO BID Stool softener (Reported ) Dronabinol (Marinol) 2.5 MG CAPSULE 1 CAP PO BID cancer (Reported) Fentanyl (Duragesic) 25 MCG/HOUR PATCH.TD72 1 PAT TOP Q3D pain (Reported) Furosemide (Lasix) 80 MG TABLET 1 TAB PO DAILY Diuretic (Reported) Levothyroxine Sodium (Synthroid) 125 MCG TABLET 1 TAB PO DAILY Thyroid ( Reported) Linagliptin (Tradjenta) 5 MG TABLET 1 TAB PO DAILY DM (Reported) Morphine Sulfate 15 MG TABLET 1 TAB PO BIDP PRN Pain (Reported) Oxycodone HCl/Acetaminophen (Endocet 10-325 MG Tablet) 10 MG-325 MG TABLET 1 TAB PO BIDP PRN Pain (Reported) Potassium Chloride 20 MEQ PACKET 20 MEQ PO DAILY Supplement (Reported) Rivaroxaban (Xarelto) 15 MG TABLET 1 TAB PO DAILY A.fib (Reported) Tamsulosin HCl (Flomax) 0.4 MG CAP.ER.24H 1 CAP PO DAILY prostate (Reported) Trazodone HCl 50 MG TABLET 0.5 TAB PO QPM Insomnia (Reported) Vitamin B Complex 1 EACH CAPSULE 1 TAB PO DAILY Supplement (Reported) Past History Travel History Traveled to [place] past 21 day No Medical History Neurological: dementia, Parkinson's disease EENT: NONE Cardiovascular: AFIB, CAD, CHF, hypertension, hyperlipidemia Respiratory: COPD, obstructive sleep apnea Gastrointestinal: NONE Hepatic: NONE Renal: benign prost hyperplasia, chronic kidney disease Musculoskeletal: chronic back pain, spinal stenosis Psychiatric: depression Endocrine: diabetes, hypothyroidism Blood Disorders: NONE Cancer(s): bladder cancer DIRECTOR OF DIAGNOSTIC IMAGING/Reproductive: NONE History of MRSA: No History of VRE: No History of CDIFF: No Surgical History Surgical History: non-contributory Past Family/Social History Family History Relations & Conditions if any MOTHER Hip fracture Relation not specified for: *No pertinent family history Psychosocial History Who Do You Live With? non destructive tester Services at Home: Home Health Aide ETOH Use: denies use Illicit Drug Use: denies illicit drug use Functional Ability ADLs Independent: eating. Needs Assist: dressing, toileting, bathing. Ambulation: walker IADLs Independent: telephone. Needs Assist: shopping, housework, finances, food prep, transportation, medication admin. Review of Systems Review of Systems Constitutional: Reports: see HPI. Comments The patient is unable to provide any history. Exam & Diagnostic Data Last 24 Hrs of Vital Signs/I&O Vital Signs Date Time Temp Pulse Resp B/P B/P Pulse O2 O2 Flow FiO2 Mean Ox Delivery Rate 10/21 2231 96.0 110 26 116/72 / 2139 96.0 110 26 116/72 92 Room Air 10/21 1940 95.8 110 30 135/85 86 Room Air 10/21 1850 95 20 136/55 98 Room Air 10/21 1837 100 Room Air 10/21 1825 97.0 97 20 100/60 100 Room Air 10/21 1810 97.4 100 20 124/60 100 Room Air 10/21 1740 102 20 108/55 98 Room Air 10/21 1726 96 20 108/54 98 Room Air 10/21 1703 97.4 88 20 104/50 100 Room Air 10/21 1652 96 / 1645 101 20 98 Room Air 10/21 1553 95 20 116/46 100 Room Air 10/21 1514 90 20 93/55 97 Room Air Intake & Output 10/22 0800 10/22 0000 10/21 1600 Intake Total 1800 Output Total 40 Balance 1760 Intake, IV 1800 Output, Urine 40 Patient 132 lb Weight Weight Kirsten Lift Measurement Method Physical Exam General Appearance No Acute Distress Skin Stage 1 sacral decubitus ulcer Sepsis Skin Exam (color): Normal for Ethnicity HEENT Atraumatic, dry Mucous membrane Neck Supple, No JVD Lymphatic Axillary nl, Cervical nl Cardiovascular Normal S1, Normal S2, systolic murmur Lungs decreased breath sounds. Abdomen Normal Bowel Sounds, Soft, No Tenderness, No Hepatospenomegaly, No Masses Neurological Normal Tone Extremities No Clubbing, No Cyanosis, No Edema, Normal Pulses, No Tenderness/ Swelling Vascular Normal Pulses, Pulses Symmetrical Sepsis Peripheral Pulse Location: Dorsalis Pedis Sepsis Peripheral Pulse Exam: Normal Sepsis Cap Refill Exam: <2 Sec Last 24 Hrs of Labs/Buster: Laboratory Tests 10/22/17 0058: Sodium Pending, Potassium Pending, Chloride Pending, Carbon Dioxide Pending, Anion Gap Pending, BUN Pending, Creatinine Pending, Glucose Pending, Lactic Acid Pending, Calcium Pending, Phosphorus Pending, Magnesium Pending, Total Bilirubin Pending, AST Pending, ALT Pending, Albumin Pending, CBC w Diff Pending, WBC Pending, RBC Pending, Hgb Pending, Hct Pending, MCV Pending, MCH Pending, MCHC Pending, RDW Pending, Plt Count Pending, MPV Pending 10/22/17 0000: Hemoglobin A1c Pending 10/21/17 2200: Anion Gap 17 H, Estimated GFR 18 L, Glucose 109 H, Calcium 8.2 L, Phosphorus 6.5 H, Magnesium 1.9, Total Bilirubin 0.9, AST 83 H, ALT 25, Troponin I 0.27 * H, Albumin 2.7 L 10/21/17 2115: Urine Opiates Screen 210.00, Methadone Screen < 40, Barbiturate Screen < 60, Ur Phencyclidine Scrn < 6.00, Amphetamines Screen 420, U Benzodiazepines Scrn < 85, Urine Cocaine Screen < 50, Urine Cannabis Screen 22.30 10/21/17 1814: Lactic Acid 4.0 H 10/21/17 1640: Urinalysis HEAVY H, Urine Color BROWN H, Urine Clarity TURBD H, Urine pH 5.0, Ur Specific [place] 1.025, Urine Protein >=300 H, Urine Ketones TRACE H, Urine Nitrite POS H, Urine Bilirubin MOD H, Urine Urobilinogen 1.0, Ur Leukocyte Esterase LARGE H, Ur Microscopic SEDIMENT EXAMINED, Urine RBC 5-10 H, Urine WBC PACKD H, Urine Bacteria MOD H, Urine Hemoglobin LARGE H, Urine Glucose NEG 10/21/17 1540: Anion Gap 19 H, Estimated GFR 17 L, BUN/Creatinine Ratio 34.0 H, Glucose 189 H, Lactic Acid 3.0 H, Calcium 8.5, Total Bilirubin 0.4, AST 75 H, ALT 24, Alkaline Phosphatase 117, Troponin I 0.22 *H, Total Protein 6.9, Albumin 3.2 L, Globulin 3.7, Albumin/Globulin Ratio 0.9 L, CBC w Diff NO MAN DIFF REQ, RBC 2.54 L, MCV 88.6, MCH 28.5, MCHC 32.1 L, RDW 17.0 H, MPV 9.1, Gran % 93.6 H, Lymphocytes % 3.0 L, Monocytes % 3.4, Eosinophils % 0, Basophils % 0, Absolute Granulocytes 25.2 H, Absolute Lymphocytes 0.8 L, Absolute Monocytes 0.9 H, Absolute Eosinophils 0, Absolute Basophils 0 10/21/17 1000: Sodium Cancelled, Potassium Cancelled, Chloride Cancelled, Carbon Dioxide Cancelled, Anion Gap Cancelled, BUN Cancelled, Creatinine Cancelled, Glucose Cancelled, Calcium Cancelled, Phosphorus Cancelled, Magnesium Cancelled, Total Bilirubin Cancelled, AST Cancelled, ALT Cancelled, Albumin Cancelled 10/21/17 1000: Sodium Cancelled, Potassium Cancelled, Chloride Cancelled, Carbon Dioxide Cancelled, Anion Gap Cancelled, BUN Cancelled, Creatinine Cancelled, Glucose Cancelled, Calcium Cancelled, Phosphorus Cancelled, Magnesium Cancelled, Total Bilirubin Cancelled, AST Cancelled, ALT Cancelled, Albumin Cancelled Microbiology 10/21 2330 UPPER RESP: Surveillance Culture - RECD 10/21 2330 GI: Surveillance Culture - RECD 10/21 1930 NASOPHARYN: Influenza Virus A & B Rapid Smear - COMP 10/21 1641 LOWER RESP: Respiratory Culture - ORD 10/21 1641 LOWER RESP: Gram Stain - ORD 10/21 1640 URINE ROUT: Urine Culture - RECD 10/21 1632 BLOOD: Blood Culture - RECD 10/21 1540 BLOOD: Blood Culture - RECD Diagnostic Data EKG Results Sinus rhythm, rate 100, right bundle branch block, ST depression in V4, V5, ? ST elevation in lead 3. QTC 522. Other Results Abdomen/pelvis CT: Right grade 3 hydroureteronephrosis without a demonstrable obstructive calculus. There are nonobstructive renal calculi. Diverticulosis without evidence of diverticulitis. Bilateral lower lobe infiltrates, right greater than left. Assessment/Plan Assessment: This is a 77-year-old male with past medical history significant for chronic back pain, atrial fibrillation on Xarelto, CAD, CHF, hypertension, hyperlipidemia, BPH, bladder cancer, Parkinson's,? Diabetes who was brought to the hospital for weakness, altered mental status, and leukocytosis. Upon presentation to the ED, he was noted to have leukocytosis to 27, hemoglobin 7.2, hematocrit 22.5, potassium 6.4, BUN 119, creatinine 3.5, lactic acid 3, troponin 0.22, positive UA. Assessment/plan: #Sepsis likely secondary to UTI versus pneumonia: He received IV vancomycin and ceftazidime 1 in the ED. Blood cultures and urine culture pending. Blood culture in 2014 positive for Escherichia coli sensitive to cefazolin, gentamicin , nitrofurantoin, amoxicillin clavulanic acid, ciprofloxacin. Will start the patient on IV ceftriaxone. He will benefit from aggressive hydration, extremely dehydrated during physical exam. Will trend lactate. #Hyperkalemia: The patient presented with potassium level of 6.4, received insulin, glucose, calcium in the ED. Repeat potassium was 6.2. Discussed with the educational resource coordinator on-call, Dr. Cole if there is any indication for an urgent dialysis given change in mental status and elevated potassium level. Dr. Cole recommends to try insulin and glucose every 2-4 hours, calcium gluconate up to every 2 hours, albuterol 20 mg every 4 hours depending on potassium levels. He also recommends will administer sodium bicarbonate 50 meq 3, and try to use K oxalate rectally or via NG tube. Will monitor potassium levels closely. #Acute blood loss anemia:Likely secondary to hematuria, has received 1 unit PRBC in the ED. Will monitor H&H closely, will hold Xarelto. #BLAIR: The patient presented with creatinine level of 3.5; baseline is 1.6 in . Aggressive IV hydration. #Positive troponins with EKG changes: The patient is tachycardic with above- mentioned changes in the EKG and positive troponin. I spoke with ore dryer on-call, Dr. Dean. Patient's Xarelto has been held secondary to acute blood loss anemia. He recommends to try to slow the heart rate; even though some degree of tachycardia is expected in acute anemia and sepsis, it is better to slow the heart rate to reduce the pressure on the heart given positive troponin and EKG change. Recommends 5 mg IV Lopressor 1 and if blood pressure allows start the patient on Nitropaste. Also give low dose aspirin 1. Will order echocardiogram, will trend troponin and EKG. #Right grade 3 hydroureteronephrosis: Urology consult placed in the ED. #?DM: Hb a1c 6.7 in 2016. Med list has Tradjenta however unclear if the patient has been taking this. Will add accuchecks q4 while NPO. Consider Ins SS. #Diet: NPO, on nectar thickened liquids and mechanical soft diet at baseline. Will order swallow evaluation. #DVT prophylaxis with ALPS. #Code status: Patient was DNI/DNR during previous admissions however patient's friend states that she is not comfortable making any decision regarding patient's CODE STATUS also patient does not have any living will or POA, also patient's daughter told Ms. Vale that she would not be comfortable signing DNR/DNI order. Will keep the patient Full code at this point. Will consult psych to determine capacity. #Please confirm medications in the morning. As Ranked By This Provider Problem List: 1. Hyperkalemia 2. Acute renal failure 3. Sepsis Core Measures/Misc (05/23) Acute Coronary Syndrome ACS Diagnosis: No Congestive Heart Failure Congestive Heart Failure Diagnosis No Cerebrovascular Accident CVA/TIA Diagnosis: No VTE (View Protocol) VTE Risk Factors Age>40 No Mechanical VTE Prophylaxis d/t N/A MechProphylax Ordered No VTE Pharm Prophylaxis d/t Bleeding (Active) Sepsis (View protocol) Sepsis Present: Yes Melia Maldonado 10/22/17 0334: Attending MD Review Statement Attending Statement Attending MD Statement: examined this patient, discuss w/resident/PA/PRESS BOX CUSTODIAN, agreed w/resident/PA/PRESS BOX CUSTODIAN, reviewed EMR data (avail), reviewed images, amended to note Attending Assessment/Plan: CC: Lethargy PMH: chronic back pain, a fib, CAD s/p CABG, HF, HTN, HLD, BPH, CKD, DM, hypothyroidism, Parkinson's Disease, Bladder mass History is from chart and patient's friend Subha Vale. Patient has a health aide at home. She was more lethargic and weak so Xray was obtained outpatient and he was started on PO antibiotics but today his labs were repeated, which showed significant leukocytosis patient was getting more weak and lethargic, so his friend brought him to ER. He has "vocal cord problem" according to her and is on Nector thick. Patients aide or non destructive tester did not notice any fever, chills, nausea, vomiting, worsening of cough. Patient's friend is aware of his bladder mass and he is expecting urological procedure next week. Given his mental status and friend not being bedside history is limited. Vitals: Temperature 97.4, pulse 95, RR 20, blood pressure 116/46, saturating 100 % on room air On exam: Patient answers in yes or no, oriented that he is in hospital and this is winter, he mumbles for some questions and follows few instructions. He appears lethargic, pupils equal reactive bilaterally, mucosa dry, no JVD, no obvious lymphadenopathy CVS: S1-S2 RRR, RS: Mild rhonchi bilaterally, no crackles or crepitations. He has stage I pressure sore, with a small stage II wound on coccyx. Abdomen: Soft, nontender, no CVA tenderness, no suprapubic tenderness, Carbajal catheter draining pinkish urine. BIlat LE edema, Blister on medial aspect of right leg CT abdomen and pelvis: Right grade 3 hydroureteronephrosis without a demonstrable obstructive calculus. There are nonobstructive renal calculi. Diverticulosis without evidence of diverticulitis. Bilateral lower lobe infiltrates, right greater than left. Assessment and plan 77-year-old male with multiple comorbidities appears bedridden at baseline, exact baseline unknown, was brought in ER by friend for him being more lethargic and weak and his WBC count was elevated outpatient. A day before he was told that he has pneumonia and was started on by mouth antibiotics. Patient's friend or health aide is not aware of any fever or chills, no cough. Patient has bladder mass awaiting further evaluation. Patient is usually admitted to [facility]. Currently he is found to have multiple medical problems # significant leukocytosis with left shift: Most likely on initial impression to. That he may have UTI most likely cystitis but pyelonephritis should be ruled out. CT abdomen and pelvis was repeated and there is no evidence of pyelonephritis. Additionally patient is also found to have bibasilar infiltrates right more than left. Given his trouble swallowing, he appears to have aspiration pneumonia. He appears in severe sepsis secondary to pneumonia and UTI - Admit to ICU - Continue as telemetry - Every hourly vitals - Aggressive hydration for at least 4-5 L normal saline - Follow up urine culture, blood culture - Initially plan was to start ceftriaxone but given his pulmonary infiltrate he would benefit from Unasyn which will cover both infections - Swallow evaluation in morning - Nothing by mouth except meds for now - Critical care consult # Hypotension : Patient appears to have low blood pressure with tachycardia, most likely secondary to sepsis. - Aggressive hydration as mentioned above - If persistently hypotensive then peripheral Levophed should be started - Obtain a consent from patient's friend for central line - Trend lactate - Hold Lasix, antihypertensives # Metabolic encephalopathy: probably secondary to sepsis with underlying suspected dementia with Parkinson's disease, look for extra fentanyl patches on the body, obtain U tox # Hyperkalemia : Secondary to acute kidney injury. Patient was given insulin, dextrose, calcium gluconate while in ER. By mouth Kayexalate was suggested but according to ICU nurse patient cannot take by mouth (ER nurse give patient aspirin orally which he swallowed without trouble), NG tube was attempted but according to ICU nurse documentation patient refused. In that situation patient needs closer monitoring for potassium. Sterile Supply Technician was called who suggested rectal kayxelate and repeated potassium and Calcium gluconate, insulin and albuterol treatments as required # BLAIR on CKD (baseline 1.6) : appears pre-renal secondary to sepsis and dehydration : - continue aggressive hydration - Strict I's and O's - Continue Carbajal catheter - Hold colchicine # Elevated troponin : Most likely secondary to demand ischemia in setting of dehydration and sepsis, decreased clearance secondary to BLAIR is a possibility. But ECG shows repolarization abnormality - Cardiology was consulted - Continue aspirin, atorvastatin - Hold beta niecy for now if patient is hypotensive - Serial troponin and ECGs - 2-D echocardiogram # Anemia : Appears secondary to blood loss. Guaiac positive but no shawn blood, patient had significant blood loss in the urine which might be responsible for his anemia - Type and screen and transfuse 1 unit - Type and screen 1 more unit - Repeat H&H in 6-8 hours - Transfuse if required - Hold Anticogagulation # Bladder mass with hematuria : Consult urology # There is ambiguous history of diabetes: medication list has oral hypoglycemic, hold oral hypoglycemics, continue Accu-Cheks, if blood sugar is elevated then add sliding scale insulin. # Pressure ulcer : Wound care consult, barrier cream, repeated turning, does not appear infected. # DVT prophylaxis with Alps only Need to confirm his medications in morning and resume from tomorrow. # Goals of care: Patient appears physically deconditioned with underlying multiple comorbidities and baseline is unclear at this point. Patient is critically ill and this condition was informed to patient's friend who is noted as next to kin. She states that as she is not immediate family member she cannot make a decision regarding CODE STATUS of the patient. Patient has a daughter who does not want to be enlarged in his care. Patient states that he does not have any POA. When asked about CODE STATUS per patient he remains silent for long time. For now patient is full code and all aggressive measures but all attempts should be made to recontact his family in this setting. TTS 41 min
--- NOTE | 2017-10-21 21:55 | Cons- Urology ---
General Information and HPI Consulting Request Date of Consult: 10/21/17 Requested By: Melia Maldonado MD Reason for Consult: persistent right hydro with BLAIR/dehydration/anemia/hyperkalemia, and sepsis Source of Information: old records Exam Limitations: not alert/orientated History of Present Illness: 77 year old recently discharged (sep 2017) who returns reportedlywith MS change and fever/tachycardic. 77-year-old male with a past medical history of chronic back pain,atrial fibrillation, coronary artery disease, CHF, hypertension, hyperlipidemia, BPH, CKD, diabetes, hypothyroidism presented to [facility] from home complaining of increased back pain, and left hip pain. Note to have signifiant. Allergies/Medications Allergies: Coded Allergies: NO KNOWN ALLERGIES (03/11/12) Home Med List: Atorvastatin Calcium (Lipitor) 20 MG TABLET 1 TAB PO DAILY Hyperlipidemia ( Reported) Bupropion HCl (Bupropion XL) 150 MG TAB.ER.24H 1 TAB PO DAILY Mental health ( Reported) Carbidopa/Levodopa (Carbidopa-Levodopa 25-100 Tab) 25 MG-100 MG TABLET 2 TAB PO TID Parkinson (Reported) Docusate Sodium (Colace) 100 MG CAPSULE 1 CAP PO BID Stool softener (Reported ) Dronabinol (Marinol) 2.5 MG CAPSULE 1 CAP PO BID cancer (Reported) Fentanyl (Duragesic) 25 MCG/HOUR PATCH.TD72 1 PAT TOP Q3D pain (Reported) Furosemide (Lasix) 80 MG TABLET 1 TAB PO DAILY Diuretic (Reported) Levothyroxine Sodium (Synthroid) 125 MCG TABLET 1 TAB PO DAILY Thyroid ( Reported) Linagliptin (Tradjenta) 5 MG TABLET 1 TAB PO DAILY DM (Reported) Morphine Sulfate 15 MG TABLET 1 TAB PO BIDP PRN Pain (Reported) Oxycodone HCl/Acetaminophen (Endocet 10-325 MG Tablet) 10 MG-325 MG TABLET 1 TAB PO BIDP PRN Pain (Reported) Potassium Chloride 20 MEQ PACKET 20 MEQ PO DAILY Supplement (Reported) Rivaroxaban (Xarelto) 15 MG TABLET 1 TAB PO DAILY A.fib (Reported) Tamsulosin HCl (Flomax) 0.4 MG CAP.ER.24H 1 CAP PO DAILY prostate (Reported) Trazodone HCl 50 MG TABLET 0.5 TAB PO QPM Insomnia (Reported) Vitamin B Complex 1 EACH CAPSULE 1 TAB PO DAILY Supplement (Reported) Current Medications: Current Medications Sig/Cedrick Start time Last Medication Dose Route Stop Time Status Admin Calcium Gluconate 1 GM ONCE ONE 10/21 1700 DC 10/21 Sodium Chloride 100 ML IV 10/21 1759 1710 Ceftazidime 0 .STK-MED ONE 10/21 1659 DC .ROUTE Ceftazidime 1,000 MG ONCE ONE 10/21 1630 DC 10/21 IV 10/21 1631 1659 Ceftriaxone Sodium 2,000 MG DAILY 10/22 1000 AC IV Dextrose 25 GM ONCE ONE 10/21 1700 DC 10/21 IV 10/21 1701 1659 Insulin Human Regular 10 UNITS ONCE ONE 10/21 1700 DC 10/21 IV 10/21 1701 1659 Sodium Chloride 500 ML BOLUS ONE 10/21 1915 DC 10/21 IV 10/21 2014 1900 Sodium Chloride See Dose ONCE ONE 10/21 1630 UNir 10/21 Insts (1) IV 10/21 1631 1700 Sodium Chloride 1,000 ML BOLUS ONE 10/21 1545 DC 10/21 IV 10/21 1744 1550 Vancomycin HCl 1,000 MG ONCE ONE 10/21 1630 DC 10/21 Dextrose/Water 250 ML IV 10/21 1729 1810 Dose Instructions: (1)Sodium Chloride: FOR USE IN SEPSIS PROTOCOL INFUSE TOTAL AMOUNT OVER 2.5 HOURS Past History Medical History Neurological: dementia, Parkinson's disease EENT: NONE Cardiovascular: AFIB, CAD, CHF, hypertension, hyperlipidemia Respiratory: COPD, obstructive sleep apnea Gastrointestinal: NONE Hepatic: NONE Renal: benign prost hyperplasia, chronic kidney disease Musculoskeletal: chronic back pain, spinal stenosis Psychiatric: depression Endocrine: diabetes, hypothyroidism Blood Disorders: NONE Cancer(s): bladder cancer CERTIFIED MEDICAL TRANSCRIPTIONIST/Reproductive: NONE Surgical History Pertinent Surgical History: non-contributory Family History Relations & Conditions If Any: MOTHER Hip fracture Relation not specified for: *No pertinent family history Psychosocial History Who Do You Live With? 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 Needs Assist: dressing, toileting, bathing. Ambulation: walker IADLs Independent: telephone. Needs Assist: shopping, housework, finances, food prep, transportation, medication admin. Employment History Retired? yes Exam & Diagnostic Data Vital Signs and I&O Vital Signs Date Time Temp Pulse Resp B/P B/P Pulse O2 O2 Flow FiO2 Mean Ox Delivery Rate 10/22 0544 72 83/32 10/22 0400 99 Nasal 2.0L Cannula 10/22 0325 94 Nasal 2.0L Cannula 10/22 0000 90 Room Air 10/22 0000 97.0 67 26 72/40 91 Room Air 10/21 2231 96.0 110 26 116/72 10/21 2139 96.0 110 26 116/72 92 Room Air 10/21 1940 95.8 110 30 135/85 86 Room Air 10/21 1850 95 20 136/55 98 Room Air 10/21 1837 100 Room Air 10/21 1825 97.0 97 20 100/60 100 Room Air 10/21 1810 97.4 100 20 124/60 100 Room Air 10/21 1740 102 20 108/55 98 Room Air 10/21 1726 96 20 108/54 98 Room Air 10/21 1703 97.4 88 20 104/50 100 Room Air 10/21 1652 96 10/21 1645 101 20 98 Room Air 10/21 1553 95 20 116/46 100 Room Air 10/21 1514 90 20 93/55 97 Room Air Intake & Output 10/22 1600 10/22 0800 10/22 0000 10/21 1600 10/21 0800 10/21 0000 Intake Total 2983 1800 Output Total 115 40 Balance 2868 1760 Intake, IV 2983 1800 Intake, Oral 0 Number 3 Bowel Movements Output, Urine 115 40 Patient 216 lb Weight Weight Bed scale Measurement Method Physical Exam General Appearance: IN CRITICAL CARE. Head: atraumatic Respiratory: normal breath sounds Cardiovascular: regular rate/rhythm Back: no vertebral tenderness Extremities: limited range of motion Reproductive: Normal male genitalia Last 24 Hours of Labs: Laboratory Tests 10/22 10/22 10/22 10/22 0553 0400 0310 0310 Chemistry Sodium (137 - 145 mmol/L) 152 H Cancelled 150 H Potassium (3.5 - 5.1 mmol/L) 5.9 H Cancelled 6.0 *H Chloride (98 - 107 mmol/L) 120 H Cancelled 119 H Carbon Dioxide (22 - 30 mmol/L) 14 L Cancelled 14 L Anion Gap (5 - 16) 19 H Cancelled 17 H BUN (9 - 20 mg/dL) 111 *H Cancelled 110 *H Creatinine (0.7 - 1.2 mg/dL) 3.3 H Cancelled 3.2 H Estimated GFR (>60 ml/min) 18 L 19 L Glucose (65 - 99 mg/dL) 56 L Cancelled 133 H Lactic Acid (0.7 - 2.1 mmol/L) 3.8 H 4.0 H Calcium (8.4 - 10.2 mg/dL) 8.2 L Cancelled 8.0 L Phosphorus (2.5 - 4.5 mg/dL) 6.0 H Cancelled 6.1 H Magnesium (1.6 - 2.3 mg/dL) 1.8 Cancelled 1.8 Total Bilirubin (0.2 - 1.3 mg/dL) 1.3 Cancelled 1.2 AST (17 - 59 U/L) 140 H Cancelled 101 H ALT (21 - 72 U/L) 29 Cancelled 26 Creatine Kinase (55 - 170 U/L) Pending Troponin I (<0.11 ng/ml) Cancelled 0.52 *H Albumin (3.5 - 5.0 g/dL) 2.4 L Cancelled 2.4 L 10/22 10/22 10/22 0200 0058 0000 Chemistry Sodium (137 - 145 mmol/L) Cancelled 152 H Potassium (3.5 - 5.1 mmol/L) Cancelled 5.8 H Chloride (98 - 107 mmol/L) Cancelled 120 H Carbon Dioxide (22 - 30 mmol/L) Cancelled 13 L Anion Gap (5 - 16) Cancelled 18 H BUN (9 - 20 mg/dL) Cancelled 108 *H Creatinine (0.7 - 1.2 mg/dL) Cancelled 3.4 H Estimated GFR (>60 ml/min) 18 L Glucose (65 - 99 mg/dL) Cancelled 88 Hemoglobin A1c Pending Lactic Acid (0.7 - 2.1 mmol/L) 3.8 H Calcium (8.4 - 10.2 mg/dL) Cancelled 8.1 L Phosphorus (2.5 - 4.5 mg/dL) Cancelled 6.3 H Magnesium (1.6 - 2.3 mg/dL) Cancelled 1.9 Total Bilirubin (0.2 - 1.3 mg/dL) Cancelled 1.1 AST (17 - 59 U/L) Cancelled 91 H ALT (21 - 72 U/L) Cancelled 21 Albumin (3.5 - 5.0 g/dL) Cancelled 2.6 L Hematology CBC w Diff MAN DIFF ORDERED WBC (4.8 - 10.8 /CUMM) 30.0 H RBC (4.70 - 6.10 /CUMM) 2.85 L Hgb (14.0 - 18.0 G/DL) 8.1 L Hct (42 - 52 %) 25.3 L MCV (80.0 - 94.0 FL) 88.6 MCH (27.0 - 31.0 PG) 28.4 MCHC (33.0 - 37.0 G/DL) 32.1 L RDW (11.5 - 14.5 %) 16.2 H Plt Count (130 - 400 /CUMM) 290 MPV (7.4 - 10.4 FL) 9.3 Gran % (42.2 - 75.2 %) 91.5 H Lymphocytes % (20.5 - 51.1 %) 3.2 L Monocytes % (1.7 - 9.3 %) 5.3 Eosinophils % (0 - 5 %) 0 Basophils % (0.0 - 2.0 %) 0 Absolute Granulocytes (1.4 - 6.5 /CUMM) 27.5 H Segmented Neutrophils (42.2 - 75.2 %) 87 H Band Neutrophils (0.0 - 5.0 %) 2 Absolute Lymphocytes (1.2 - 3.4 /CUMM) 1.0 L Lymphocytes (20.5 - 51.1 %) 4 L Monocytes (1.7 - 9.3 %) 7 Absolute Monocytes (0.10 - 0.60 /CUMM) 1.6 H Absolute Eosinophils (0.0 - 0.7 /CUMM) 0 Absolute Basophils (0.0 - 0.2 /CUMM) 0 Platelet Estimate (ADEQUATE) ADEQUATE Hypochromic-Microcytic 1+ Poikilocytosis 1+ Anisocytosis 1+ Macrocytic Cells FEW Wadley Cells 1+ Elliptocytes 1+ 10/21 10/21 10/21 2200 2115 1814 Chemistry Sodium (137 - 145 mmol/L) 147 H Potassium (3.5 - 5.1 mmol/L) 6.2 *H Chloride (98 - 107 mmol/L) 114 H Carbon Dioxide (22 - 30 mmol/L) 15 L Anion Gap (5 - 16) 17 H BUN (9 - 20 mg/dL) 111 *H Creatinine (0.7 - 1.2 mg/dL) 3.3 H Estimated GFR (>60 ml/min) 18 L Glucose (65 - 99 mg/dL) 109 H Lactic Acid (0.7 - 2.1 mmol/L) 4.0 H Calcium (8.4 - 10.2 mg/dL) 8.2 L Phosphorus (2.5 - 4.5 mg/dL) 6.5 H Magnesium (1.6 - 2.3 mg/dL) 1.9 Total Bilirubin (0.2 - 1.3 mg/dL) 0.9 AST (17 - 59 U/L) 83 H ALT (21 - 72 U/L) 25 Troponin I (<0.11 ng/ml) 0.27 *H Albumin (3.5 - 5.0 g/dL) 2.7 L Toxicology Urine Opiates Screen (>2000 NG/ML) 210.00 Methadone Screen (>300 NG/ML) < 40 Barbiturate Screen (>200 NG/ML) < 60 Ur Phencyclidine Scrn (>25 NG/ML) < 6.00 Amphetamines Screen (>1000 NG/ML) 420 U Benzodiazepines Scrn (>200 NG/ML) < 85 Urine Cocaine Screen (>300 NG/ML) < 50 Urine Cannabis Screen (>50 NG/ML) 22.30 02/15 0215 1640 1540 Chemistry Sodium (137 - 145 mmol/L) 148 H Potassium (3.5 - 5.1 mmol/L) 6.4 *H Chloride (98 - 107 mmol/L) 113 H Carbon Dioxide (22 - 30 mmol/L) 16 L Anion Gap (5 - 16) 19 H BUN (9 - 20 mg/dL) 119 *H Creatinine (0.7 - 1.2 mg/dL) 3.5 H Estimated GFR (>60 ml/min) 17 L BUN/Creatinine Ratio (7 - 25 %) 34.0 H Glucose (65 - 99 mg/dL) 189 H Lactic Acid (0.7 - 2.1 mmol/L) 3.0 H Calcium (8.4 - 10.2 mg/dL) 8.5 Total Bilirubin (0.2 - 1.3 mg/dL) 0.4 AST (17 - 59 U/L) 75 H ALT (21 - 72 U/L) 24 Alkaline Phosphatase (< 127 U/L) 117 Troponin I (<0.11 ng/ml) 0.22 *H Total Protein (6.3 - 8.2 g/dL) 6.9 Albumin (3.5 - 5.0 g/dL) 3.2 L Globulin (1.9 - 4.2 gm/dL) 3.7 Albumin/Globulin Ratio (1.1 - 2.2 %) 0.9 L Hematology CBC w Diff NO MAN DIFF REQ WBC (4.8 - 10.8 /CUMM) 27.0 H RBC (4.70 - 6.10 /CUMM) 2.54 L Hgb (14.0 - 18.0 G/DL) 7.2 *L Hct (42 - 52 %) 22.5 L MCV (80.0 - 94.0 FL) 88.6 MCH (27.0 - 31.0 PG) 28.5 MCHC (33.0 - 37.0 G/DL) 32.1 L RDW (11.5 - 14.5 %) 17.0 H Plt Count (130 - 400 /CUMM) 334 MPV (7.4 - 10.4 FL) 9.1 Gran % (42.2 - 75.2 %) 93.6 H Lymphocytes % (20.5 - 51.1 %) 3.0 L Monocytes % (1.7 - 9.3 %) 3.4 Eosinophils % (0 - 5 %) 0 Basophils % (0.0 - 2.0 %) 0 Absolute Granulocytes (1.4 - 6.5 /CUMM) 25.2 H Absolute Lymphocytes (1.2 - 3.4 /CUMM) 0.8 L Absolute Monocytes (0.10 - 0.60 /CUMM) 0.9 H Absolute Eosinophils (0.0 - 0.7 /CUMM) 0 Absolute Basophils (0.0 - 0.2 /CUMM) 0 Urines Urinalysis HEAVY H Urine Color (YEL,AMB,STR) BROWN H Urine Clarity (CLEAR) TURBD H Urine pH (5.0 - 8.0) 5.0 Ur Specific Frost (1.001 - 1.035) 1.025 Urine Protein (NEG,<30 MG/DL) >=300 H Urine Ketones (NEG) TRACE H Urine Nitrite (NEG) POS H Urine Bilirubin (NEG) MOD H Urine Urobilinogen (0.1 - 1.0 EU/dl) 1.0 Ur Leukocyte Esterase (NEG) LARGE H Ur Microscopic SEDIMENT EXAMINED Urine RBC (0 - 5 /HPF) 5-10 H Urine WBC (0 - 2 /HPF) PACKD H Urine Bacteria (NEG/NONE) MOD H Urine Hemoglobin (NEG) LARGE H Urine Glucose (N MG/DL) NEG 10/21 10/21 UNK UNK Chemistry Sodium Cancelled Cancelled Potassium Cancelled Cancelled Chloride Cancelled Cancelled Carbon Dioxide Cancelled Cancelled Anion Gap Cancelled Cancelled BUN Cancelled Cancelled Creatinine Cancelled Cancelled Glucose Cancelled Cancelled Calcium Cancelled Cancelled Phosphorus Cancelled Cancelled Magnesium Cancelled Cancelled Total Bilirubin Cancelled Cancelled AST Cancelled Cancelled ALT Cancelled Cancelled Albumin Cancelled Cancelled Imaging Results: PATIENT: ANDRE GERBER PRESENT AGE: 77 PATIENT ACCOUNT NO: [id number] : 38 LOCATION: [facility] ORDERING PHYSICIAN: Dimitris Alejandra MD SERVICE DATE: 10/21/17 EXAM TYPE: CAT - CT ABD & PELVIS W/O IV CONTRAS EXAMINATION: CT ABDOMEN AND PELVIS WITHOUT CONTRAST CLINICAL INFORMATION: Bladder cancer. Sepsis. No hydronephrosis. COMPARISON: 10/01/2015. TECHNIQUE: Contiguous axial thin section helical images of the abdomen and pelvis were performed without oral or IV contrast. The data set was reformatted in the coronal and sagittal planes and reviewed on an independent workstation. DLP: 502 mGy-cm. FINDINGS: There is a lateral basal segment right lower lobe infiltrate. There is medial left lower lobe airspace disease. The visualized portions of the heart are unremarkable. The liver is of normal size and attenuation without focal lesions nor intrahepatic biliary ductal dilation. A normal gallbladder is identified. There is no wall thickening or discernible pericholecystic fluid. The spleen, pancreas, adrenal glands are unremarkable. There is right grade 3 hydroureteronephrosis. There is moderate right hydroureter without a discernible obstructive calculus. There are nonobstructive calculi within the right kidney. The largest is within the interpole region measuring approximately 6 mm. There is no left hydronephrosis. There are left renal arterial vascular calcifications present. There is no abdominal free fluid. There is neither mesenteric nor retroperitoneal lymphadenopathy. There is sigmoid diverticulosis without evidence of diverticulitis; otherwise, unremarkable unopacified loops of small and large bowel are identified. There is no pelvic free fluid. The urinary bladder is partially filled. A Carbajal catheter is in place. There is neither pelvic nor inguinal lymphadenopathy. Bone windows: Neither sclerotic nor lytic bone lesions are identified. There is disc height loss within the lower lumbar spine. IMPRESSION: Right grade 3 hydroureteronephrosis without a demonstrable obstructive calculus. There are nonobstructive renal calculi. Diverticulosis without evidence of diverticulitis. Bilateral lower lobe infiltrates, right greater than left. Assessment/Plan Assessment/Plan PT IN CRITICAL STAGE, NO CLEARLY RESPONSIVE. CT REVIEWED, APPEARS TO HAVE BLADDER MASS THAT MAY BE CONTRIBUTING TO MILD HYDRO-NO STONE.; PT IS NOT STABLE ENOUGH FOR CYSTOSCOPY/TURBT/STENT IN OR. IF HYDR. WORSENS WITH CLINICAL CHANGES , SHOULD CONSIDER INTERVENTIONAL RADIOLOGY FOR DRAIN. Copies To: Akin Hale MD Consult Acknowledgment - Thank you for your consult request. Attending MD Review Statement Attending Statement Attending MD Statement: examined this patient, discuss w/resident/PA/[employer] Attending Assessment/Plan: PT CRITICAL WITH MULTIPLE ISSUES:NOT POSSIBLE TO GO TO OR FOR CYSTO-DIAGNOSTIC- POSSIBLE TURBT NOW.
[2017-10-21] MEDS ORDERED: MARINOL2.5 MG PO (22:19)
[2017-10-21] MEDS ORDERED: SYNTHROID125 MCG PO (22:19)
[2017-10-21] MEDS ORDERED: DURAGESIC1 EACH TOP (22:20)
[2017-10-21] MEDS ORDERED: TRADJENTA5 M1 PO (22:21)
[2017-10-21] MEDS ORDERED: VITAMIN B COMP1 EACH PO (22:21)
[2017-10-21] MEDS ORDERED: XARELTO15 M1 PO (22:22)
[2017-10-21] MEDS ORDERED: BUPROPION XL150 MG PO (22:22)
[2017-10-21] MEDS ORDERED: CARBIDOPA-LEVO1 EAC7 PO (22:28)
[2017-10-21] MEDS ORDERED: LASIX80 M1 PO (22:29)
[2017-10-21] MEDS ORDERED: ENDOCET 10-3251 EACH PO (22:29)
[2017-10-21] MEDS ORDERED: POTASSIUM CHLO20 ME3 PO (22:30)
[2017-10-21] MEDS ORDERED: COLACE100 M1 PO (22:31)
[2017-10-21] MEDS ORDERED: FLOMAX0.4 M1 PO (22:31)
[2017-10-21] MEDS ORDERED: LIPITOR20 M2 PO (22:32)
[2017-10-21] MEDS ORDERED: TRAZODONE HCL50 M1 PO (22:35)
[2017-10-22] VITALS: BP 72/40
[2017-10-22 02:09] LABS: ABSOLUTE BASOPHIL COUNT 0 /CUMM (0.0-0.2); ABSOLUTE EOSINOPHIL COUNT 0 /CUMM (0.0-0.7); ABSOLUTE GRANULOCYTE CT 27.5 /CUMM (1.4-6.5); ABSOLUTE MONOCYTE COUNT 1.6 /CUMM (0.10-0.60); BASOPHIL % 0 % (0.0-2.0); EOSINOPHIL % 0 % (0-5); GRANULOCYTE % 91.5 % (42.2-75.2); HEMATOCRIT 25.3 % (42-52); MEAN CORPUSCULAR HGB 28.4 PG (27.0-31.0); MEAN CORPUSCULAR HGB CONC 32.1 G/DL (33.0-37.0); MEAN CORPUSCULAR VOLUME 88.6 FL (80.0-94.0); MEAN PLATELET VOLUME 9.3 FL (7.4-10.4); PLATELET COUNT 290 /CUMM (130-400); RBC DISTRIBUTION WIDTH 16.2 % (11.5-14.5); RED BLOOD CELL CT 2.85 /CUMM (4.70-6.10)
--- NOTE | 2017-10-22 02:30 | Event Note ---
Event Note Event Note: Patient's BP was 83/40 systolic while on 4th liter of fluids. Called patient's friend Subha Vale, and took consent over the phone for placement of central line. Patient is much disconditioned and has multiple underlying co-morbidities. History is limited as patient is minimally verbal. We dont know his baseline mental status. Of note, Ms. Vale is listed as the patient's POA however, going through the chart reveals that the admitting team spoke iwmp her and she is not the official POA, and cannot want to make any decisions reagrding goals of care. The patient has a daughter who does not want to be involved in the patient's care. When asked about the code status, patient remains quiet, and is thus full code. Going thrugh records, he was full ocde on his previous admission in 2015, but was DNR/DNI on the admission back in 2014. Patient's prognosis continues to remian guraded, with goals of care unsettled as of si point. For now, will continue management as if patient were full code. The on-call ICU attending was informed about the patient[facility] however patient is contracted and we were not comfortable placing [facility]. Contacted surgical service and spoke abby Allan, who will see the patient. Meanwhile patient was started on peripheral IV pressors around 5:44am.
--- NOTE | 2017-10-22 03:41 | Admission Certification ---
Admission Certification Certification Statement - As attending physician, I certify that at the time of - admission, based on clinical presentation, severity of - symptoms, need for further diagnostic testing and - therapeutic interventions, and risk of adverse outcomes - without in-hospital treatment, in my clinical assessment, - this patient requires an acute hospital stay for a minimum - of two nights or longer. I have also considered psychsocial - factors such as support system, advanced age, financial - issues, cognitive issues, and failed out-patient treatments, - past re-admission history, safety of patient, and lack of - compliance as applicable. Specific rationale supporting this admission is: Severe sepsis, demand ischemia, acute kidney injury on chronic kidney disease, hyperkalemia, acute blood loss anemia
--- NOTE | 2017-10-22 07:42 | Procedure ---
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 Consent was obtained by the critical care team from a family friend who has assumed medical decision making. He is septic with hypotension, edi, dehydration , on xeralto for afib. US guidence triple lumen catheter was placed in the Left IJ due to inability to access the R side due to contractures. steril prep, US direct visualization of the L IJ, local infiltration with lidocaine. IJ and carotid artery was identified on US. 1 attempt, venous blood return, wire insterted without difficluty, dilated, central line was placed without complications, excellent venous blood return and flush. no signs of hematoma or PTX. steril dressing applied and CXR ordered DW Dr Allan and critical care team.
--- NOTE | 2017-10-22 07:43 | Cons- CRCU ---
Kan JEANChelsea 10/22/17 0743: General Information and HPI Consulting Request Date of Consult: 10/22/17 Requested By: Tapan Source of Information: old records Exam Limitations: unable to give history History of Present Illness: This is a 77-year-old male with past medical history significant for chronic back pain, atrial fibrillation on Xarelto, CAD, CHF, hypertension, hyperlipidemia, BPH, bladder cancer, Parkinson's disease who was brought to the hospital for weakness, altered mental status, and leukocytosis. The patient is not able to provide any history. History was obtained from patient's friend Ms. Subha Vale. According to Ms. Vale, the patient lives with a home assessment nurse, he has been feeling weaker compared to his baseline for the past week also noted to have hematuria. He was seen by his PCP yesterday and was started on Cefuroxime for suspected pneumonia. During the office visit, labs were obtained. The PCP called and notified them that the patient needs to go to the emergency room because WBC is elevated to 25,000. The patient was not noted to have any fever, chills, chest pain, difficulty breathing at home. Per Ms. 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 She also mentions that the patient does not have any living will or POA assigned and she is not comfortable making decisions whether patient should be DNI DNR. Ms. Vale also spoke with patient's daughter was not comfortable signing DNI/DNR order. I asked if the daughter wants to be involved in medical decision making and informing case there is any change in patient's status, per Petar Akanksha, the daughter does not want to be involved in medical decision making and will communicate with Ms. Vale if necessary. Allergies/Medications Allergies: Coded Allergies: NO KNOWN ALLERGIES (03/11/12) Home Med List: Atorvastatin Calcium (Lipitor) 20 MG TABLET 1 TAB PO DAILY Hyperlipidemia ( Reported) Bupropion HCl (Bupropion XL) 150 MG TAB.ER.24H 1 TAB PO DAILY Mental health ( Reported) Carbidopa/Levodopa (Carbidopa-Levodopa 25-100 Tab) 25 MG-100 MG TABLET 2 TAB PO TID Parkinson (Reported) Docusate Sodium (Colace) 100 MG CAPSULE 1 CAP PO BID Stool softener (Reported ) Dronabinol (Marinol) 2.5 MG CAPSULE 1 CAP PO BID cancer (Reported) Fentanyl (Duragesic) 25 MCG/HOUR PATCH.TD72 1 PAT TOP Q3D pain (Reported) Furosemide (Lasix) 80 MG TABLET 1 TAB PO DAILY Diuretic (Reported) Levothyroxine Sodium (Synthroid) 125 MCG TABLET 1 TAB PO DAILY Thyroid ( Reported) Linagliptin (Tradjenta) 5 MG TABLET 1 TAB PO DAILY DM (Reported) Morphine Sulfate 15 MG TABLET 1 TAB PO BIDP PRN Pain (Reported) Oxycodone HCl/Acetaminophen (Endocet 10-325 MG Tablet) 10 MG-325 MG TABLET 1 TAB PO BIDP PRN Pain (Reported) Potassium Chloride 20 MEQ PACKET 20 MEQ PO DAILY Supplement (Reported) Rivaroxaban (Xarelto) 15 MG TABLET 1 TAB PO DAILY A.fib (Reported) Tamsulosin HCl (Flomax) 0.4 MG CAP.ER.24H 1 CAP PO DAILY prostate (Reported) Trazodone HCl 50 MG TABLET 0.5 TAB PO QPM Insomnia (Reported) Vitamin B Complex 1 EACH CAPSULE 1 TAB PO DAILY Supplement (Reported) Review of Systems Review of Systems Constitutional: Reports: see HPI. Past History Travel History Traveled to [place] past 21 day No Medical History Blood Transfusion Hx: Yes Neurological: dementia, Parkinson's disease EENT: NONE Cardiovascular: AFIB, CAD, CHF, hypertension, hyperlipidemia Respiratory: COPD, obstructive sleep apnea Gastrointestinal: NONE Hepatic: NONE Renal: benign prost hyperplasia, chronic kidney disease Musculoskeletal: chronic back pain, spinal stenosis Psychiatric: depression Endocrine: diabetes, hypothyroidism Blood Disorders: NONE Cancer(s): bladder cancer DIRT SUPERVISOR/Reproductive: 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 Home Who Do You Live With? repairer general Services at Home: Home Health Aide Smoking Status: Unknown If Ever Smoked ETOH Use: denies use Illicit Drug Use: denies illicit drug use Functional Ability ADLs Independent: eating. Needs Assist: dressing, toileting, bathing. Ambulation: walker IADLs Independent: telephone. Needs Assist: shopping, housework, finances, food prep, transportation, medication admin. Exam & Diagnostic Data Last 24 Hrs of Vital Signs/I&O Vital Signs Date Time Temp Pulse Resp B/P B/P Pulse O2 O2 Flow FiO2 Mean Ox Delivery Rate 10/22 1358 100 10/22 1317 99 10/22 1200 97.2 75 27 124/66 97 BIPAP 25% 10/22 1200 97 BIPAP 25% 10/22 0937 73 97 10/22 0902 Nasal 2.0L Cannula 10/22 0800 97.4 73 21 104/58 99 Nasal 2.0L Cannula 10/22 0800 98 Nasal 2.0L Cannula 10/22 0544 72 83/32 10/22 0400 99 Nasal 2.0L Cannula 10/22 0325 94 Nasal 2.0L Cannula 10/22 0000 90 Room Air 10/22 0000 97.0 67 26 72/40 91 Room Air 10/21 2231 96.0 110 26 116/72 10/21 2139 96.0 110 26 116/72 92 Room Air 10/21 1940 95.8 110 30 135/85 86 Room Air 10/21 1850 95 20 136/55 98 Room Air 10/21 1837 100 Room Air 10/21 1825 97.0 97 20 100/60 100 Room Air 10/21 1810 97.4 100 20 124/60 100 Room Air 10/21 1740 102 20 108/55 98 Room Air 10/21 1726 96 20 108/54 98 Room Air 10/21 1703 97.4 88 20 104/50 100 Room Air 10/21 1652 96 10/21 1645 101 20 98 Room Air 10/21 1553 95 20 116/46 100 Room Air 10/21 1514 90 20 93/55 97 Room Air Intake & Output 10/22 1600 10/22 0800 10/22 0000 Intake Total 1562 2983 1800 Output Total 200 115 40 Balance 1362 2868 1760 Intake, IV 1562 2983 1800 Intake, Oral 0 Number 2 3 Bowel Movements Output, Urine 200 115 40 Patient 167 lb 216 lb Weight Weight Bed scale Bed scale Measurement Method Physical Exam General Appearance: intubated Head: atraumatic Respiratory: chest non-tender Cardiovascular: systolic murmur Last 48 Hrs of Labs/Buster: Laboratory Tests 10/22/17 1430: Troponin I Pending 10/22/17 1430: Lactic Acid Pending, CBC w Diff Pending, WBC Pending, RBC Pending, Hgb Pending, Hct Pending, MCV Pending, MCH Pending, MCHC Pending, RDW Pending, Plt Count Pending, MPV Pending 10/22/17 1300: pH 7.34 L, pCO2 23 L, pO2 110 H, HCO3 12 L, ABG O2 Sat (Measured) 96.0, P-50 (Temp Corrected) N, Carboxyhemoglobin 1.3 L, O2 Concentration % 25%, Respiration Rate 24, O2 Delivery Method BIPAP, Vent Mode ST, Expiratory Pressure 4, Inspiratory Pressure 12, Phlebotomy Draw Site LEFT RADIAL 10/22/17 1130: Lactic Acid 3.3 H 10/22/17 1000: Troponin I Cancelled 10/22/17 0953: Lactic Acid Cancelled 10/22/17 0900: Sodium Cancelled, Potassium Cancelled, Chloride Cancelled, Carbon Dioxide Cancelled, Anion Gap Cancelled, BUN Cancelled, Creatinine Cancelled, Glucose Cancelled, Calcium Cancelled, Phosphorus Cancelled, Magnesium Cancelled, Total Bilirubin Cancelled, AST Cancelled, ALT Cancelled, Albumin Cancelled 10/22/17 0825: pH 7.41, pCO2 13 L, pO2 121 H, HCO3 8 L, ABG O2 Sat (Measured) 99.0, P-50 ( Temp Corrected) YES, O2 Concentration % 2L, Temperature 97.0, O2 Delivery Method NC, Phlebotomy Draw Site LEFT RADIAL 10/22/17 0800: Anion Gap 20 H, Estimated GFR 18 L, Glucose 68, Serum Osmolality 353 H, Lactic Acid 3.0 H, Calcium 8.1 L, Phosphorus 6.3 H, Magnesium 1.7, Total Bilirubin 1.3, AST 354 H, ALT 49, Troponin I 1.08 *H, Albumin 2.4 L 10/22/17 0800: Anion Gap 17 H, Estimated GFR 19 L, Glucose 47 *L, Calcium 7.5 L, Phosphorus 5.8 H, Magnesium 1.7, Total Bilirubin 1.3, AST 228 H, ALT 39, Albumin 2.3 L, Acetone Level NEGATIVE 10/22/17 0553: Anion Gap 19 H, Estimated GFR 18 L, Glucose 56 L, Lactic Acid 3.8 H, Calcium 8.2 L, Phosphorus 6.0 H, Magnesium 1.8, Total Bilirubin 1.3, AST 140 H, ALT 29, Albumin 2.4 L 10/22/17 0400: Sodium Cancelled, Potassium Cancelled, Chloride Cancelled, Carbon Dioxide Cancelled, Anion Gap Cancelled, BUN Cancelled, Creatinine Cancelled, Glucose Cancelled, Calcium Cancelled, Phosphorus Cancelled, Magnesium Cancelled, Total Bilirubin Cancelled, AST Cancelled, ALT Cancelled, Albumin Cancelled 10/22/17 0310: Troponin I Cancelled 10/22/17 0310: Anion Gap 17 H, Estimated GFR 19 L, Glucose 133 H, Lactic Acid 4.0 H, Calcium 8.0 L, Phosphorus 6.1 H, Magnesium 1.8, Total Bilirubin 1.2, AST 101 H, ALT 26, Creatine Kinase 129, Troponin I 0.52 *H, Albumin 2.4 L 10/22/17 0200: Sodium Cancelled, Potassium Cancelled, Chloride Cancelled, Carbon Dioxide Cancelled, Anion Gap Cancelled, BUN Cancelled, Creatinine Cancelled, Glucose Cancelled, Calcium Cancelled, Phosphorus Cancelled, Magnesium Cancelled, Total Bilirubin Cancelled, AST Cancelled, ALT Cancelled, Albumin Cancelled 10/22/17 0058: Anion Gap 18 H, Estimated GFR 18 L, Glucose 88, Lactic Acid 3.8 H, Calcium 8.1 L, Phosphorus 6.3 H, Magnesium 1.9, Total Bilirubin 1.1, AST 91 H, ALT 21 , Albumin 2.6 L, CBC w Diff MAN DIFF ORDERED, RBC 2.85 L, MCV 88.6, MCH 28.4, MCHC 32.1 L, RDW 16.2 H, MPV 9.3, Gran % 91.5 H, Lymphocytes % 3.2 L, Monocytes % 5.3, Eosinophils % 0, Basophils % 0, Absolute Granulocytes 27.5 H, Segmented Neutrophils 87 H, Band Neutrophils 2, Absolute Lymphocytes 1.0 L, Lymphocytes 4 L, Monocytes 7, Absolute Monocytes 1.6 H, Absolute Eosinophils 0 , Absolute Basophils 0, Platelet Estimate ADEQUATE, Hypochromic-Microcytic 1+, Poikilocytosis 1+, Anisocytosis 1+, Macrocytic Cells FEW, [place] Cells 1+, Elliptocytes 1+ 10/22/17 0000: Hemoglobin A1c 6.2 H 10/21/17 2200: Anion Gap 17 H, Estimated GFR 18 L, Glucose 109 H, Calcium 8.2 L, Phosphorus 6.5 H, Magnesium 1.9, Total Bilirubin 0.9, AST 83 H, ALT 25, Troponin I 0.27 * H, Albumin 2.7 L 10/21/17 2115: Urine Opiates Screen 210.00, Methadone Screen < 40, Barbiturate Screen < 60, Ur Phencyclidine Scrn < 6.00, Amphetamines Screen 420, U Benzodiazepines Scrn < 85, Urine Cocaine Screen < 50, Urine Cannabis Screen 22.30 10/21/17 1814: Lactic Acid 4.0 H 10/21/17 1640: Urinalysis HEAVY H, Urine Color BROWN H, Urine Clarity TURBD H, Urine pH 5.0, Ur Specific [place] 1.025, Urine Protein >=300 H, Urine Ketones TRACE H, Urine Nitrite POS H, Urine Bilirubin MOD H, Urine Urobilinogen 1.0, Ur Leukocyte Esterase LARGE H, Ur Microscopic SEDIMENT EXAMINED, Urine RBC 5-10 H, Urine WBC PACKD H, Urine Bacteria MOD H, Urine Hemoglobin LARGE H, Urine Glucose NEG 10/21/17 1540: Anion Gap 19 H, Estimated GFR 17 L, BUN/Creatinine Ratio 34.0 H, Glucose 189 H, Lactic Acid 3.0 H, Calcium 8.5, Total Bilirubin 0.4, AST 75 H, ALT 24, Alkaline Phosphatase 117, Troponin I 0.22 *H, Total Protein 6.9, Albumin 3.2 L, Globulin 3.7, Albumin/Globulin Ratio 0.9 L, CBC w Diff NO MAN DIFF REQ, RBC 2.54 L, MCV 88.6, MCH 28.5, MCHC 32.1 L, RDW 17.0 H, MPV 9.1, Gran % 93.6 H, Lymphocytes % 3.0 L, Monocytes % 3.4, Eosinophils % 0, Basophils % 0, Absolute Granulocytes 25.2 H, Absolute Lymphocytes 0.8 L, Absolute Monocytes 0.9 H, Absolute Eosinophils 0, Absolute Basophils 0 10/21/17 1000: Sodium Cancelled, Potassium Cancelled, Chloride Cancelled, Carbon Dioxide Cancelled, Anion Gap Cancelled, BUN Cancelled, Creatinine Cancelled, Glucose Cancelled, Calcium Cancelled, Phosphorus Cancelled, Magnesium Cancelled, Total Bilirubin Cancelled, AST Cancelled, ALT Cancelled, Albumin Cancelled 10/21/17 1000: Sodium Cancelled, Potassium Cancelled, Chloride Cancelled, Carbon Dioxide Cancelled, Anion Gap Cancelled, BUN Cancelled, Creatinine Cancelled, Glucose Cancelled, Calcium Cancelled, Phosphorus Cancelled, Magnesium Cancelled, Total Bilirubin Cancelled, AST Cancelled, ALT Cancelled, Albumin Cancelled Microbiology 10/21 1929 AYANAN: Influenza Virus A & B Rapid Smear - COMP Assessment/Plan Impression/Plan: This is a 77-year-old male with past medical history significant for chronic back pain, atrial fibrillation on Xarelto, CAD, CHF, hypertension, hyperlipidemia, BPH, bladder cancer, Parkinson's,? Diabetes who was brought to the hospital for weakness, altered mental status, and leukocytosis. He is being treated and evaluated for following conditions Respiratory #Suspected Aspiration pneumonia Chest x-ray significant for Right base atelectasis. Otherwise no acute pulmonary disease seen. The patient is presenting with leukocytosis. We are entertaining the possibility of aspiration pneumonia. CT scan Bilateral lower lobe infiltrates, right greater than left.The other possible causes of sepsis is UTI in setting of Right grade 3 hydroureteronephrosis and due to stage IV bladder cancer. -Currently on Unasyn -If fever or worsening WBC count panculture and consider changing the antibiotic to swathi spectrum. -Urine strep and Legionella antigen -Follow up blood cultures -Follow sputum culture -Flu Negative -TRC nebs -Continue BiPAP -Repeat ABGs -Repeat CXR Infection #Sepsis likely secondary to UTI versus pneumonia: He received IV vancomycin and ceftazidime 1 in the ED. Blood culture in 2014 positive for Escherichia coli sensitive to cefazolin, gentamicin, nitrofurantoin, amoxicillin clavulanic acid, ciprofloxacin. Most probable cause of sepsis is UTI I in setting of Right grade 3 hydroureteronephrosis and due to stage IV bladder cancer. -Leukocytosis up to 30>27 -Lactic acid trending up -Blood cultures No growth so far -Urine culture GNR, follow-up final sensitivities -Consider broadening antibiotic coverage to Ceftaz Cardiovascular #Positive troponins with EKG changes: Patient presented with tachycardia and ST depression in V4, V5 and positive troponin. Appears to be demand supply mismatch. Dr. Dean suggested to slow the heart rate in setting of sepsis and acute anemia and recommended 5 mg IV Lopressor 1 -Troponins peaked at 1.06 -If blood pressure allows start the patient on Nitropaste. -Follow-up echocardiogram -Aspirin -Follow-up cardiology recommendations #Atrial fibrillation -Xarelto on in setting of acute blood loss anemia Hematology #Leukocytosis Likely 2/2 sepsis secondary to UTI versus pneumonia Most probable cause of sepsis is UTI I in setting of Right grade 3 hydroureteronephrosis and due to stage IV bladder cancer. -Monitor WBC count -Consider switching to broad-spectrum antibiotics vancomycin and Ceftaz #Acute blood loss anemia Likely 2/2 hematuria, has received 1 unit PRBC in the ED. -monitor H&H closely, -Hold Xarelto. -Goal H/H 04/29 transfuse if necessary Metabolic #DM/Hypoglycemia Hb a1c 6.7 in 2016. Med list has Tradjenta however unclear if the patient has been taking this. -Accuchecks q4 -HbA1c 6.2 -Pt's Blood sugar dropped 87 to recieved push of dextrose #Hypernatremia, hyperkalemia, hyperchloremia, Acid Base Disturbance -See below Alimentary -Continue IV Protonix -NPO Nephrology #BLAIR likely 2/2 to combination of R sided obstructive uropathy & ATN in setting of septic shock. This is a possibility of prerenal component -IVF -If aggressive care is to continue, need to consider R sided decompression via nephrostomy. Dr. Hale does not believe that patient is a candidate for surgery at this present situation #Hyperkalemia likely 2/2 BLAIR & sepsis -repeat Kayexalate as necessary if K > 5.5 CT or Via NG -Monitor BEP #Acid Base Disturbance mixed respiratory alkalosis & metabolic acidosis; Anion Gap due to renal failure , lactic acid, & possible ketoacidosis with positive urine ketones. -Nephrology on board -Continue IVF -Monitor BEP -Check acetone #Hypernatremia hyperchloremia Free water defict of 4L. pt recieved 4L so far, NS contributing to Hypernatremia hyperchloremia -We are going to continue IVF and are going to switch fluids to D5 half normal saline #CKD: mod, stage 3 likely 2/2 DM, HTN, & previous UTIs #Right grade 3 hydroureteronephrosis in setting of stage IV bladder cancer -Consider R sided decompression via nephrostomy. Urology on board does not want any active intervention at this moment DVT prophylaxis with ALPS. Diet NPO Code Status FC see psy note Consult Acknowledgment - Thank you for your consult request. David Butt MD 10/22/17 1431: General Information and HPI Allergies/Medications Current Medications: Current Medications Sig/Cedrick Start time Last Medication Dose Route Stop Time Status Admin Albuterol Sulfate 3 ML Q6PRN PRN 10/22 0330 AC 10/22 INH 0323 Ampicillin Sodium/ 3,000 MG Q6H 10/22 0300 DC 10/22 Sulbactam Sodium IV 0849 Sodium Chloride 100 ML Aspirin 81 MG ONCE ONE 10/21 2230 DC 10/21 PO 10/21 2231 2231 Aspirin 0 .STK-MED ONE 10/21 2229 DC PO Azithromycin 500 MG DAILY 10/22 1000 CAN Dextrose/Water 250 ML IV Calcium Gluconate 1 GM ONCE ONE 10/22 0230 DC 10/22 Sodium Chloride 100 ML IV 10/22 0329 0325 Calcium Gluconate 1 GM ONCE ONE 10/21 2345 DC 10/22 Sodium Chloride 100 ML IV 10/22 0044 0026 Calcium Gluconate 1 GM ONCE ONE 10/21 1700 DC 10/21 Sodium Chloride 100 ML IV 10/21 1759 1710 Ceftazidime 1,000 MG Q24H 10/22 1545 AC IV Ceftazidime 0 .STK-MED ONE 10/21 1659 DC .ROUTE Ceftazidime 1,000 MG ONCE ONE 10/21 1630 DC 10/21 IV 10/21 1631 1659 Ceftriaxone Sodium 2,000 MG DAILY 10/22 1000 DC IV Ceftriaxone Sodium 1,000 MG DAILY 10/22 1000 CAN IV Dextrose 25 GM ONCE ONE 10/22 1045 DC 10/22 IV 10/22 1046 1046 Dextrose 25 GM ONCE ONE 10/22 0230 DC 10/22 IV 10/22 0231 0240 Dextrose 25 GM ONCE ONE 10/21 2315 DC 10/21 IV 10/21 2316 2327 Dextrose 25 GM ONCE ONE 10/21 1700 DC 10/21 IV 10/21 1701 1659 Dextrose/Water 1,000 ML Q6H 10/22 0845 AC 10/22 IV 0850 Insulin Aspart 0 TIDAC 10/22 1700 UNVr SC Insulin Human Regular 10 UNITS ONCE ONE 10/22 0230 DC 10/22 IV 10/22 0231 0240 Insulin Human Regular 10 UNITS ONCE ONE 10/21 2330 DC 10/21 IV 10/21 2331 2323 Insulin Human Regular 0 ONCE ONE 10/21 2315 CAN IV 10/21 2316 Insulin Human Regular 10 UNITS ONCE ONE 10/21 1700 DC 10/21 IV 10/21 1701 1659 Magnesium Sulfate 1 GM ONCE ONE 10/22 1300 AC 10/22 Dextrose/Water 100 ML IV 10/22 1659 1323 Metoprolol Tartrate 0 .STK-MED ONE 10/21 2229 DC IV Metoprolol Tartrate 5 MG ONCE ONE 10/21 2215 DC 10/21 IV 10/21 2216 2231 Norepinephrine 4 MG Q3H 10/22 0900 AC 10/22 Sodium Chloride 250 ML IV 1324 Norepinephrine 4 MG Q24H 10/22 0600 DC 10/22 Sodium Chloride 250 ML IV 0544 Norepinephrine 4 MG Q4H 10/22 0600 DC Sodium Chloride 250 ML IV Norepinephrine 4 MG .STK-MED ONE 10/22 0527 DC IV 10/22 0528 Pantoprazole Sodium 40 MG DAILY 10/22 1120 AC 10/22 IV 1323 Sodium Bicarbonate 50 MEQ Q1 10/22 0000 DC 10/22 IV 10/22 0201 0230 Sodium Chloride 1,000 ML Q6H 10/22 0815 DC IV Sodium Chloride 1,000 ML BOLUS ONE 10/22 0415 DC 10/22 IV 10/22 0514 0448 Sodium Chloride 1,000 ML Q10H 10/22 0300 DC 10/22 IV 0640 Sodium Chloride 1,000 ML BOLUS ONE 10/22 0030 DC 10/22 IV 10/22 0129 0026 Sodium Chloride 1,000 ML BOLUS ONE 10/21 2315 DC 10/21 IV 10/22 0014 2317 Sodium Chloride 1,000 ML Q20H 10/21 2215 DC 10/22 IV 10/22 0314 0230 Sodium Chloride 500 ML BOLUS ONE 10/21 1915 DC 10/21 IV 10/21 2014 1900 Sodium Chloride 1,800 ML ONCE ONE 10/21 1630 DC 10/21 IV 10/21 1631 1700 Sodium Chloride 1,000 ML BOLUS ONE 10/21 1545 DC 10/21 IV 10/21 1744 1550 Sodium Polystyrene 60 ML ONCE ONE 10/22 1100 DC 10/[address] 10/22 1101 1109 Sodium Polystyrene 60 ML ONCE ONE 10/22 0400 DC 10/[address] 10/22 0401 0448 Sodium Polystyrene 60 ML ONCE ONE 10/22 0215 DC 10/[address] 10/22 0216 0347 Sodium Polystyrene 120 ML ONCE ONE 10/22 0030 DC Sulfonate PO 10/22 0031 Sodium Polystyrene 60 ML ONCE ONE 10/[address] 10/21 2346 Vancomycin HCl 1,000 MG Q24H 10/22 1545 AC Dextrose/Water 250 ML IV Vancomycin HCl 1,000 MG ONCE ONE 10/21 1630 DC 10/21 Dextrose/Water 250 ML IV 10/21 1729 1810 Vitamin A/Vitamin D 1 ELIZABETH BID 10/22 1233 AC 10/22 TOP 1324 Zinc Oxide 1 ELIZABETH BID 10/22 1234 AC 10/22 TOP 1324 Assessment/Plan Other Findings/Comments: I have personally seen and examined the patient and agree with the resident's assessment and plan as detailed above. Will make further recommendations as necessary. Consult Acknowledgment - Thank you for your consult request.
[2017-10-22 08:00] VITALS: BP 104/58
--- NOTE | 2017-10-22 09:06 | RADIOLOGY REPORT ---
EXAMINATION: XR PORTABLE CHEST CLINICAL INFORMATION: Status post left IJ line placement COMPARISON: Chest x-ray 10/21/2017 TECHNIQUE: Portable frontal view of the chest was obtained. FINDINGS: Interval placement of left IJ catheter with tip terminating within the distal SVC. No pneumothorax. Cardiac silhouette is stable in size. Evaluation of lung parenchyma is limited given patient rotation. Similarly, the left lower lobe was not included on today's imaging. I suspect there is right basilar subsegmental atelectasis. Degenerative changes of the spine and shoulders. IMPRESSION: Good positioning of left IJ catheter. No pneumothorax.
--- NOTE | 2017-10-22 09:52 | Cons- Nephrology ---
General Information and HPI Consulting Request Date of Consult: 10/22/17 Requested By: Melia Maldonado MD Reason for Consult: BLAIR & electrolyte disturbances Source of Information: old records Exam Limitations: not alert/orientated, clinical condition History of Present Illness: 77 yr old WM w mult severe med problems including DM, HTN, Afib on Xarelto, advanced Parkinson's, bladder cancer, & CKD admit yesterday w worsening mental status. Found to be hypotensive w leukocytosis in setting of R hydro & begun on IV fluids, pressors, & broad spectrum antibiotics. Known mod, stage 3, CKD w previous baseline Cr mid 1s-2. On admite BUN/Cr rise 119/3.5 complicated by hyperkalemia 6.4 requiring insulin/glucose & Kayexalate. Remains hypotensive < 100 systolic w worsening hypernatremia & oliguria. Not deemed candidate for cystoscopy to decompress R sided obstruction by urology. Outpt meds included Lasix but no RAAS interruption or record recent NSAIDs or IV contrast. Allergies/Medications Allergies: Coded Allergies: NO KNOWN ALLERGIES (03/11/12) Home Med List: Atorvastatin Calcium (Lipitor) 20 MG TABLET 1 TAB PO DAILY Hyperlipidemia ( Reported) Bupropion HCl (Bupropion XL) 150 MG TAB.ER.24H 1 TAB PO DAILY Mental health ( Reported) Carbidopa/Levodopa (Carbidopa-Levodopa 25-100 Tab) 25 MG-100 MG TABLET 2 TAB PO TID Parkinson (Reported) Docusate Sodium (Colace) 100 MG CAPSULE 1 CAP PO BID Stool softener (Reported ) Dronabinol (Marinol) 2.5 MG CAPSULE 1 CAP PO BID cancer (Reported) Fentanyl (Duragesic) 25 MCG/HOUR PATCH.TD72 1 PAT TOP Q3D pain (Reported) Furosemide (Lasix) 80 MG TABLET 1 TAB PO DAILY Diuretic (Reported) Levothyroxine Sodium (Synthroid) 125 MCG TABLET 1 TAB PO DAILY Thyroid ( Reported) Linagliptin (Tradjenta) 5 MG TABLET 1 TAB PO DAILY DM (Reported) Morphine Sulfate 15 MG TABLET 1 TAB PO BIDP PRN Pain (Reported) Oxycodone HCl/Acetaminophen (Endocet 10-325 MG Tablet) 10 MG-325 MG TABLET 1 TAB PO BIDP PRN Pain (Reported) Potassium Chloride 20 MEQ PACKET 20 MEQ PO DAILY Supplement (Reported) Rivaroxaban (Xarelto) 15 MG TABLET 1 TAB PO DAILY A.fib (Reported) Tamsulosin HCl (Flomax) 0.4 MG CAP.ER.24H 1 CAP PO DAILY prostate (Reported) Trazodone HCl 50 MG TABLET 0.5 TAB PO QPM Insomnia (Reported) Vitamin B Complex 1 EACH CAPSULE 1 TAB PO DAILY Supplement (Reported) Current Medications: Current Medications Sig/Cedrick Start time Last Medication Dose Route Stop Time Status Admin Albuterol Sulfate 3 ML Q6PRN PRN 10/22 0330 AC 10/22 INH 0323 Ampicillin Sodium/ 3,000 MG Q6H 10/22 0300 AC 10/22 Sulbactam Sodium IV 0849 Sodium Chloride 100 ML Aspirin 81 MG ONCE ONE 10/21 223 DC 10/21 PO 10/21 223 2231 Aspirin 0 .STK-MED ONE 10/21 2229 DC PO Azithromycin 500 MG DAILY 10/22 1000 CAN Dextrose/Water 250 ML IV Calcium Gluconate 1 GM ONCE ONE 10/22 0230 DC 10/22 Sodium Chloride 100 ML IV 10/22 0329 0325 Calcium Gluconate 1 GM ONCE ONE 10/21 2345 DC 10/22 Sodium Chloride 100 ML IV 10/22 0044 0026 Calcium Gluconate 1 GM ONCE ONE 10/21 1700 DC 10/21 Sodium Chloride 100 ML IV 10/21 1759 1710 Ceftazidime 0 .STK-MED ONE 10/21 1659 DC .ROUTE Ceftazidime 1,000 MG ONCE ONE 10/21 1630 DC 10/21 IV 10/21 1631 1659 Ceftriaxone Sodium 2,000 MG DAILY 10/22 1000 DC IV Ceftriaxone Sodium 1,000 MG DAILY 10/22 1000 CAN IV Dextrose 25 GM ONCE ONE 10/22 0230 DC 10/22 IV 10/22 0231 0240 Dextrose 25 GM ONCE ONE 10/21 2315 DC 10/21 IV 10/21 2316 2327 Dextrose 25 GM ONCE ONE 10/21 1700 DC 10/21 IV 10/21 1701 1659 Dextrose/Water 1,000 ML Q6H 10/22 0845 AC 10/22 IV 0850 Insulin Human Regular 10 UNITS ONCE ONE 10/22 0230 DC 10/22 IV 10/22 0231 0240 Insulin Human Regular 10 UNITS ONCE ONE 10/21 2330 DC 10/21 IV 10/21 2331 2323 Insulin Human Regular 0 ONCE ONE 10/21 2315 CAN IV 10/21 2316 Insulin Human Regular 10 UNITS ONCE ONE 10/21 1700 DC 10/21 IV 10/21 1701 1659 Metoprolol Tartrate 0 .STK-MED ONE 10/21 2229 DC IV Metoprolol Tartrate 5 MG ONCE ONE 10/21 2215 DC 10/21 IV 10/21 2216 2231 Norepinephrine 4 MG Q3H 10/22 0900 AC 10/22 Sodium Chloride 250 ML IV 0902 Norepinephrine 4 MG Q24H 10/22 0600 DC 10/22 Sodium Chloride 250 ML IV 0544 Norepinephrine 4 MG Q4H 10/22 0600 DC Sodium Chloride 250 ML IV Sodium Bicarbonate 50 MEQ Q1 10/22 0000 DC 10/22 IV 10/22 0201 0230 Sodium Chloride 1,000 ML Q6H 10/22 0815 AC IV Sodium Chloride 1,000 ML BOLUS ONE 10/22 0415 DC 10/22 IV 10/22 0514 0448 Sodium Chloride 1,000 ML Q10H 10/22 0300 DC 10/22 IV 0640 Sodium Chloride 1,000 ML BOLUS ONE 10/22 0030 DC 10/22 IV 10/22 0129 0026 Sodium Chloride 1,000 ML BOLUS ONE 10/21 2315 DC 10/21 IV 10/22 0014 2317 Sodium Chloride 1,000 ML Q20H 10/21 2215 DC 10/22 IV 10/22 0314 0230 Sodium Chloride 500 ML BOLUS ONE 10/21 1915 DC 10/21 IV 10/21 2014 1900 Sodium Chloride 1,800 ML ONCE ONE 10/21 1630 DC 10/21 IV 10/21 1631 1700 Sodium Chloride 1,000 ML BOLUS ONE 10/21 1545 DC 10/21 IV 10/21 1744 1550 Sodium Polystyrene 60 ML ONCE ONE 10/22 0400 DC 10/22 Sulfonate OH 10/22 0401 0448 Sodium Polystyrene 60 ML ONCE ONE 10/22 0215 DC 10/22 Sulfonate OH 10/22 0216 0347 Sodium Polystyrene 120 ML ONCE ONE 10/22 0030 DC Sulfonate PO 10/22 0031 Sodium Polystyrene 60 ML ONCE ONE 10/21 2345 DC Sulfonate OH 10/21 2346 Vancomycin HCl 1,000 MG ONCE ONE 10/21 1630 DC 10/21 Dextrose/Water 250 ML IV 10/21 1729 1810 Review of Systems Review of Systems: pt unable top cooperate Past History Travel History Traveled to [place] past 21 day No Medical History Blood Transfusion Hx: Yes Neurological: dementia, Parkinson's disease EENT: NONE Cardiovascular: AFIB, CAD, CHF, hypertension, hyperlipidemia Respiratory: COPD, obstructive sleep apnea Gastrointestinal: NONE Hepatic: NONE Renal: benign prost hyperplasia, chronic kidney disease Musculoskeletal: chronic back pain, spinal stenosis Psychiatric: depression Endocrine: diabetes, hypothyroidism Blood Disorders: NONE Cancer(s): bladder cancer 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 Home Who Do You Live With? [employer] Services at Home: Home Health Aide Smoking Status: Unknown If Ever Smoked ETOH Use: denies use Illicit Drug Use: denies illicit drug use Functional Ability ADLs Independent: eating. Needs Assist: dressing, toileting, bathing. Ambulation: walker IADLs Independent: telephone. Needs Assist: shopping, housework, finances, food prep, transportation, medication admin. Exam & Diagnostic Data Vital Signs and I&O Vital Signs Date Time Temp Pulse Resp B/P B/P Pulse O2 O2 Flow FiO2 Mean Ox Delivery Rate 10/22 0902 Nasal 2.0L Cannula 10/22 0544 72 83/32 10/22 0400 99 Nasal 2.0L Cannula 10/22 0325 94 Nasal 2.0L Cannula 10/22 0000 90 Room Air 10/22 0000 97.0 67 26 72/40 91 Room Air 10/21 2231 96.0 110 26 116/72 10/21 2139 96.0 110 26 116/72 92 Room Air 10/21 1940 95.8 110 30 135/85 86 Room Air 10/21 1850 95 20 136/55 98 Room Air 10/21 1837 100 Room Air 10/21 1825 97.0 97 20 100/60 100 Room Air 10/21 1810 97.4 100 20 124/60 100 Room Air 10/21 1740 102 20 108/55 98 Room Air 10/21 1726 96 20 108/54 98 Room Air 10/21 1703 97.4 88 20 104/50 100 Room Air 10/21 1652 96 10/21 1645 101 20 98 Room Air 10/21 1553 95 20 116/46 100 Room Air 10/21 1514 90 20 93/55 97 Room Air Intake & Output 10/22 0400 10/21 1600 10/21 0400 10/20 0400 Intake Total 2983 1800 Output Total 115 40 Balance 2868 1760 Intake, IV 2983 1800 Intake, Oral 0 Number 3 Bowel Movements Output, Urine 115 40 Patient 216 lb Weight Weight Bed scale Measurement Method Physical Exam General Appearance: cachetic, lethargic, BiPap Head: atraumatic, normal appearance Eyes: Bilateral: normal appearance. Ears, Nose, Throat: dry mucous membranes Neck: normal inspection, L IJ cath Respiratory: no respiratory distress, rhonchi Cardiovascular: friction rub (none), irregularly irregular Gastrointestinal: soft, non-tender, no organomegaly Back: normal inspection Extremities: swelling Neurologic/Psych: confused & disoriented Rigid Skin: intact, cyanosis (toes), tatoos Lymphatic: no anterior cervical malick, no axilllary adenopathy Results Pertinent Lab Results: Laboratory Tests 10/22 10/22 10/22 10/22 0900 0825 0553 0400 Blood Gas pH (7.35 - 7.45 PH) 7.41 pCO2 (35 - 45 TORR) 13 L pO2 (80 - 100 TORR) 121 H HCO3 (21 - 28 MEQ/L) 8 L ABG O2 Sat (Measured) (>96.0 %) 99.0 P-50 (Temp Corrected) YES O2 Concentration % 2L Temperature (97.0 - 100.0 FARH) 97.0 O2 Delivery Method NC Chemistry Sodium (137 - 145 mmol/L) Cancelled 152 H Cancelled Potassium (3.5 - 5.1 mmol/L) Cancelled 5.9 H Cancelled Chloride (98 - 107 mmol/L) Cancelled 120 H Cancelled Carbon Dioxide (22 - 30 mmol/L) Cancelled 14 L Cancelled Anion Gap (5 - 16) Cancelled 19 H Cancelled BUN (9 - 20 mg/dL) Cancelled 111 *H Cancelled Creatinine (0.7 - 1.2 mg/dL) Cancelled 3.3 H Cancelled Estimated GFR (>60 ml/min) 18 L Glucose (65 - 99 mg/dL) Cancelled 56 L Cancelled Lactic Acid (0.7 - 2.1 mmol/L) 3.8 H Calcium (8.4 - 10.2 mg/dL) Cancelled 8.2 L Cancelled Phosphorus (2.5 - 4.5 mg/dL) Cancelled 6.0 H Cancelled Magnesium (1.6 - 2.3 mg/dL) Cancelled 1.8 Cancelled Total Bilirubin (0.2 - 1.3 mg/dL) Cancelled 1.3 Cancelled AST (17 - 59 U/L) Cancelled 140 H Cancelled ALT (21 - 72 U/L) Cancelled 29 Cancelled Albumin (3.5 - 5.0 g/dL) Cancelled 2.4 L Cancelled Miscellaneous Phlebotomy Draw Site LEFT RADIAL 10/22 10/22 10/22 0310 0310 0200 Chemistry Sodium (137 - 145 mmol/L) 150 H Cancelled Potassium (3.5 - 5.1 mmol/L) 6.0 *H Cancelled Chloride (98 - 107 mmol/L) 119 H Cancelled Carbon Dioxide (22 - 30 mmol/L) 14 L Cancelled Anion Gap (5 - 16) 17 H Cancelled BUN (9 - 20 mg/dL) 110 *H Cancelled Creatinine (0.7 - 1.2 mg/dL) 3.2 H Cancelled Estimated GFR (>60 ml/min) 19 L Glucose (65 - 99 mg/dL) 133 H Cancelled Lactic Acid (0.7 - 2.1 mmol/L) 4.0 H Calcium (8.4 - 10.2 mg/dL) 8.0 L Cancelled Phosphorus (2.5 - 4.5 mg/dL) 6.1 H Cancelled Magnesium (1.6 - 2.3 mg/dL) 1.8 Cancelled Total Bilirubin (0.2 - 1.3 mg/dL) 1.2 Cancelled AST (17 - 59 U/L) 101 H Cancelled ALT (21 - 72 U/L) 26 Cancelled Creatine Kinase (55 - 170 U/L) 129 Troponin I (<0.11 ng/ml) Cancelled 0.52 *H Albumin (3.5 - 5.0 g/dL) 2.4 L Cancelled 10/22 10/22 10/21 0058 0000 2200 Chemistry Sodium (137 - 145 mmol/L) 152 H 147 H Potassium (3.5 - 5.1 mmol/L) 5.8 H 6.2 *H Chloride (98 - 107 mmol/L) 120 H 114 H Carbon Dioxide (22 - 30 mmol/L) 13 L 15 L Anion Gap (5 - 16) 18 H 17 H BUN (9 - 20 mg/dL) 108 *H 111 *H Creatinine (0.7 - 1.2 mg/dL) 3.4 H 3.3 H Estimated GFR (>60 ml/min) 18 L 18 L Glucose (65 - 99 mg/dL) 88 109 H Hemoglobin A1c (4.2 - 5.8 %) 6.2 H Lactic Acid (0.7 - 2.1 mmol/L) 3.8 H Calcium (8.4 - 10.2 mg/dL) 8.1 L 8.2 L Phosphorus (2.5 - 4.5 mg/dL) 6.3 H 6.5 H Magnesium (1.6 - 2.3 mg/dL) 1.9 1.9 Total Bilirubin (0.2 - 1.3 mg/dL) 1.1 0.9 AST (17 - 59 U/L) 91 H 83 H ALT (21 - 72 U/L) 21 25 Troponin I (<0.11 ng/ml) 0.27 *H Albumin (3.5 - 5.0 g/dL) 2.6 L 2.7 L Hematology CBC w Diff MAN DIFF ORDERED WBC (4.8 - 10.8 /CUMM) 30.0 H RBC (4.70 - 6.10 /CUMM) 2.85 L Hgb (14.0 - 18.0 G/DL) 8.1 L Hct (42 - 52 %) 25.3 L MCV (80.0 - 94.0 FL) 88.6 MCH (27.0 - 31.0 PG) 28.4 MCHC (33.0 - 37.0 G/DL) 32.1 L RDW (11.5 - 14.5 %) 16.2 H Plt Count (130 - 400 /CUMM) 290 MPV (7.4 - 10.4 FL) 9.3 Gran % (42.2 - 75.2 %) 91.5 H Lymphocytes % (20.5 - 51.1 %) 3.2 L Monocytes % (1.7 - 9.3 %) 5.3 Eosinophils % (0 - 5 %) 0 Basophils % (0.0 - 2.0 %) 0 Absolute Granulocytes (1.4 - 6.5 /CUMM) 27.5 H Segmented Neutrophils (42.2 - 75.2 %) 87 H Band Neutrophils (0.0 - 5.0 %) 2 Absolute Lymphocytes (1.2 - 3.4 /CUMM) 1.0 L Lymphocytes (20.5 - 51.1 %) 4 L Monocytes (1.7 - 9.3 %) 7 Absolute Monocytes (0.10 - 0.60 /CUMM) 1.6 H Absolute Eosinophils (0.0 - 0.7 /CUMM) 0 Absolute Basophils (0.0 - 0.2 /CUMM) 0 Platelet Estimate (ADEQUATE) ADEQUATE Hypochromic-Microcytic 1+ Poikilocytosis 1+ Anisocytosis 1+ Macrocytic Cells FEW Terrie Cells 1+ Elliptocytes 1+ 10/21 10/21 10/21 2115 1814 1640 Chemistry Lactic Acid (0.7 - 2.1 mmol/L) 4.0 H Toxicology Urine Opiates Screen (>2000 NG/ML) 210.00 Methadone Screen (>300 NG/ML) < 40 Barbiturate Screen (>200 NG/ML) < 60 Ur Phencyclidine Scrn (>25 NG/ML) < 6.00 Amphetamines Screen (>1000 NG/ML) 420 U Benzodiazepines Scrn (>200 NG/ML) < 85 Urine Cocaine Screen (>300 NG/ML) < 50 Urine Cannabis Screen (>50 NG/ML) 22.30 Urines Urinalysis HEAVY H Urine Color (YEL,AMB,STR) BROWN H Urine Clarity (CLEAR) TURBD H Urine pH (5.0 - 8.0) 5.0 Ur Specific [place] (1.001 - 1.035) 1.025 Urine Protein (NEG,<30 MG/DL) >=300 H Urine Ketones (NEG) TRACE H Urine Nitrite (NEG) POS H Urine Bilirubin (NEG) MOD H Urine Urobilinogen (0.1 - 1.0 EU/dl) 1.0 Ur Leukocyte Esterase (NEG) LARGE H Ur Microscopic SEDIMENT EXAMINED Urine RBC (0 - 5 /HPF) 5-10 H Urine WBC (0 - 2 /HPF) PACKD H Urine Bacteria (NEG/NONE) MOD H Urine Hemoglobin (NEG) LARGE H Urine Glucose (N MG/DL) NEG 10/21 10/21 10/21 1540 UNK UNK Chemistry Sodium (137 - 145 mmol/L) 148 H Cancelled Cancelled Potassium (3.5 - 5.1 mmol/L) 6.4 *H Cancelled Cancelled Chloride (98 - 107 mmol/L) 113 H Cancelled Cancelled Carbon Dioxide (22 - 30 mmol/L) 16 L Cancelled Cancelled Anion Gap (5 - 16) 19 H Cancelled Cancelled BUN (9 - 20 mg/dL) 119 *H Cancelled Cancelled Creatinine (0.7 - 1.2 mg/dL) 3.5 H Cancelled Cancelled Estimated GFR (>60 ml/min) 17 L BUN/Creatinine Ratio (7 - 25 %) 34.0 H Glucose (65 - 99 mg/dL) 189 H Cancelled Cancelled Lactic Acid (0.7 - 2.1 mmol/L) 3.0 H Calcium (8.4 - 10.2 mg/dL) 8.5 Cancelled Cancelled Phosphorus Cancelled Cancelled Magnesium Cancelled Cancelled Total Bilirubin (0.2 - 1.3 mg/dL) 0.4 Cancelled Cancelled AST (17 - 59 U/L) 75 H Cancelled Cancelled ALT (21 - 72 U/L) 24 Cancelled Cancelled Alkaline Phosphatase (< 127 U/L) 117 Troponin I (<0.11 ng/ml) 0.22 *H Total Protein (6.3 - 8.2 g/dL) 6.9 Albumin (3.5 - 5.0 g/dL) 3.2 L Cancelled Cancelled Globulin (1.9 - 4.2 gm/dL) 3.7 Albumin/Globulin Ratio (1.1 - 2.2 %) 0.9 L Hematology CBC w Diff NO MAN DIFF REQ WBC (4.8 - 10.8 /CUMM) 27.0 H RBC (4.70 - 6.10 /CUMM) 2.54 L Hgb (14.0 - 18.0 G/DL) 7.2 *L Hct (42 - 52 %) 22.5 L MCV (80.0 - 94.0 FL) 88.6 MCH (27.0 - 31.0 PG) 28.5 MCHC (33.0 - 37.0 G/DL) 32.1 L RDW (11.5 - 14.5 %) 17.0 H Plt Count (130 - 400 /CUMM) 334 MPV (7.4 - 10.4 FL) 9.1 Gran % (42.2 - 75.2 %) 93.6 H Lymphocytes % (20.5 - 51.1 %) 3.0 L Monocytes % (1.7 - 9.3 %) 3.4 Eosinophils % (0 - 5 %) 0 Basophils % (0.0 - 2.0 %) 0 Absolute Granulocytes (1.4 - 6.5 /CUMM) 25.2 H Absolute Lymphocytes (1.2 - 3.4 /CUMM) 0.8 L Absolute Monocytes (0.10 - 0.60 /CUMM) 0.9 H Absolute Eosinophils (0.0 - 0.7 /CUMM) 0 Absolute Basophils (0.0 - 0.2 /CUMM) 0 Imaging/Other Studies: CT: Right grade 3 hydroureteronephrosis without a demonstrable obstructive calculus. There are nonobstructive renal calculi. Diverticulosis without evidence of diverticulitis. Bilateral lower lobe infiltrates, right greater than left. Assessment/Plan Assessment/Recommendations Assessment: 1. BLAIR: likely combination of R sided obstructive uropathy & ATN in setting of septic shock; can't r/o still has prerenal component. If aggressive care is to continue, need to consider R sided decompression via nephrostomy. However, overall prognosis poor & limits of care, including comfort measures need to be considered. 2. Hyperkalemia: due to BLAIR & sepsis; needs repeat lytes --> repeat Kayexalate if K > 5.5 3. Acid Base: mixed resp alk & met acid; met acid hi AG due to renal failure, lactic acid, & possible ketoacidosis w positive urine ketones. pH compensated w/ o bicarb indication based on last ABG. 4. Hypernatremia: needs more free water. 5. CKD: mod, stage 3, likely due to Dm, HTN, & previous UTIs, In setting of severe chronic dx, including Parkinsons & bladder Ca, as well as current acute hemodynamic status, do not view pt as dialysis candidate. Recommendations: 1. Continue IV D5 2. Insulin coverage 3. Repeat lytes --> if K > 5.5 will need additional Kayexalate 4. Serum acetone 5. Cionsider R percutaneous nephrostomy if aggressive care to continue & clinical stsus allow
--- NOTE | 2017-10-22 10:13 | CT SCAN REPORT ---
EXAMINATION: CT HEAD WITHOUT CONTRAST CLINICAL INFORMATION: Altered mental status COMPARISON: 04/26/2017 TECHNIQUE: Contiguous axial imaging was performed from the skull base to vertex without intravenous contrast. Total exam dose-length product: 319 mGy-cm. FINDINGS: The study is limited by artifact due to suboptimal patient positioning with significant beam hardening. There is no evidence of acute intracranial hemorrhage or territorial infarction. No abnormal mass effect or midline shift is seen. [place] to white matter differentiation is well preserved. No extra-axial fluid collections are identified. There is symmetric, concordant prominence of the ventricles and sulci compatible with severe parenchymal volume loss. No hydrocephalus. Advanced chronic microvascular white matter ischemic changes are seen. There are remote lacunar infarcts in the bilateral basal ganglia. The osseous structures and soft tissues are normal. The mastoid air cells and visualized portions of the paranasal sinuses are well aerated. IMPRESSION: No acute intracranial pathology.
--- NOTE | 2017-10-22 10:14 | RADIOLOGY REPORT ---
EXAMINATION: CHEST 1 VIEW CLINICAL INFORMATION: Shortness of breath COMPARISON: 01/21/2017 TECHNIQUE: Single frontal view of the chest was obtained. FINDINGS: The patient's head overlies the lung apices, particularly on the right, obscuring visualization. There are streaky opacities at the right lung base, likely atelectasis. No dense focal consolidation or mass. No pleural effusion or pneumothorax. Sternal wires and mediastinal clips are seen. Normal heart size. There are degenerative changes of the shoulders with severe left glenohumeral degenerative arthrosis. IMPRESSION: Right base atelectasis. Otherwise no acute pulmonary disease seen.
[2017-10-22 12:00] VITALS: BP 124/66
--- NOTE | 2017-10-22 13:53 | ECHOCARDIOGRAM REPORT ---
ANDRE GERBER Age: 77 : 1940 Gender: M Exam Date: 10/22/2017 08:47 Exam Location: [facility] Ht (in): 68 Wt (lb): 216 BSA: 2.20 BP: 83 / 32 Ordering Physician: Sally Dunaway, Referring Physician: Sally Dunaway, Technologist: Lew Lassiter RDCS Room Number: 108-1 Indications: LV FUNCTION AFTER ACS Rhythm: Technical Quality: Technically difficult study FINDINGS Left Ventricle Left ventricular cavity size normal. Left ventricular wall thickness mildly increased. Moderate to severe anteroseptal hypokinesis. Mildly abnormal left ventricular ejection fraction estimated at 40- 45%. Right Ventricle Normal right ventricular size and function. Right Atrium Normal right atrial size. Left Atrium Left atrial size at the upper limits of normal. Mitral Valve Mild mitral annular calcification. Mild mitral regurgitation. Aortic Valve Diffuse thickening of the aortic valve cusps with reduced excursion. [id number] aortic stenosis (mean gradient 21 mmHg). Trace aortic regurgitation. Tricuspid Valve Structurally normal tricuspid valve. [id number] tricuspid regurgitation. Unable to estimate the right ventricular systolic pressure. Pulmonic Valve Pulmonic valve not well visualized. Pericardium No pericardial effusion. Great Vessels Normal size aortic root. CONCLUSIONS Technically difficult study. Left ventricular cavity size normal. Left ventricular wall thickness mildly increased. Moderate to severe anteroseptal hypokinesis. Mildly abnormal left ventricular ejection fraction estimated at 40- 45%. Normal right ventricular size and function. [id number] aortic stenosis (mean gradient 21 mmHg). [id number] tricuspid regurgitation. Unable to estimate the right ventricular systolic pressure. No pericardial effusion. Fidel Rai M.D. (Electronically Signed) Final Date: 22 October 2017 13:52 MEASUREMENTS (Male / Female) Normal Values 2D ECHO LV Diastolic Diameter PLAX 5.1 cm 4.2 - 5.9 / 3.9 - 5.3 cm LV Systolic Diameter PLAX 3.9 cm 2.1 - 4.0 cm LV Fractional Shortening PLAX 23.5 % 25 - 46 % LV Ejection Fraction 2D Teich 46.8 % IVS Diastolic Thickness 1.2 cm LVPW Diastolic Thickness 1.3 cm LV Relative Wall Thickness 0.5 LVOT Diameter 2.0 cm Aortic Root Diameter 2.6 cm LA Systolic Diameter LX 3.9 cm 3.0 - 4.0 / 2.7 - 3.8 cm LA Volume 69.0 cm 18 - 58 / 22 - 52 cm IVC Diameter Expiration 2.4 cm DOPPLER AV Peak Velocity 329.0 cm/s AV Peak Gradient 43.3 mmHg AV Mean Velocity 210.0 cm/s AV Mean Gradient 21.0 mmHg AV Velocity Time Integral 75.3 cm LVOT Peak Velocity 78.2 cm/s LVOT Peak Gradient 2.4 mmHg LVOT Mean Velocity 50.8 cm/s LVOT Mean Gradient 1.0 mmHg LVOT Velocity Time Integral 20.5 cm LVOT Stroke Volume 64.4 cm AV Area Cont Eq vti 0.9 cm AV Area Cont Eq pk 0.7 cm MV Peak Velocity 127.0 cm/s MV Peak Gradient 6.5 mmHg MV Mean Velocity 71.2 cm/s MV Mean Gradient 2.0 mmHg Mitral E Point Velocity 117.0 cm/s Mitral A Point Velocity 34.6 cm/s Mitral E to A Ratio 3.4 MV PHT Velocity 126.0 cm/s MV Deceleration [place] 341.0 cm/s MV Pressure Half Time 110.8 ms MV Area PHT 2.0 cm MV Deceleration Time 246.0 ms MR Peak Velocity 547.0 cm/s MR Peak Gradient 119.7 mmHg TR Peak Velocity 247.0 cm/s TR Peak Gradient 24.4 mmHg Right Atrial Pressure 10.0 mmHg Pulmonary Artery Systolic Pressu 34.4 mmHg Right Ventricular Systolic Press 34.4 mmHg LV E' Lateral Velocity 10.0 cm/s Mitral E to LV E' Lateral Ratio 11.7 LV E' Septal Velocity 6.6 cm/s Mitral E to LV E' Septal Ratio 17.6
--- NOTE | 2017-10-22 14:03 | Cons- Psychiatry ---
Psychiatric Consult Date of Consult: 10/22/17 Reason for Consult: "FOR COMPETENCY" Re-formulated with the help of the medical team: "Please evaluate the patient's capacity to make a decision about having a nephrostomy to help relieve worsening urinary obstruction as a result of bladder cancer." History of Present Illness: 77 y.o. , male was BIBA from home with a CC of lethargy, increased WBC, pneumonia, and history of bladder cancer. He has a history of dementia and Parkinson's disease, now on Sinemet. Per the medical team, the patient is bed-bound at home and has an aide. His daughter had declined to participate in healthcare decisions. There are no other known relatives. His significant other, Subha Vale, of a different address, who is not his power of assembling inspector or healthcare proxy, has been making all his decisions for years, per a discussion with his PCP, Dr. Rito Loredo of [place], by Dr. Granados, resident. Per discussion with Subha by Dr. Granados, she claims to know his wishes, as she has been caring for the patient for years. During a prior admission, Dr. Nia Calvillo, attending physician, had signed a Health Care Directives Standing Order on 01/16/2015, which is not signed by the patient. It indicates DNR and DNI. The medial team is looking for a note from her indicating where she found this information, or if she had interviewed the patient herself, and had documented the conversation leading to this document. It is an order, not a healthcare directive. Allergies: Coded Allergies: NO KNOWN ALLERGIES (03/11/12) Current Medications: Current Medications Sig/Cedrick Start time Last Medication Dose Route Stop Time Status Admin Albuterol Sulfate 3 ML Q6PRN PRN 10/22 0330 AC 10/22 INH 0323 Ampicillin Sodium/ 3,000 MG Q6H 10/22 0300 AC 10/22 Sulbactam Sodium IV 0849 Sodium Chloride 100 ML Aspirin 81 MG ONCE ONE 10/21 2229 DC 10/21 PO 10/21 2230 2231 Aspirin 0 .STK-MED ONE 10/21 2229 DC PO Azithromycin 500 MG DAILY 10/22 1000 CAN Dextrose/Water 250 ML IV Calcium Gluconate 1 GM ONCE ONE 10/22 0230 DC 10/22 Sodium Chloride 100 ML IV 10/22 0329 0325 Calcium Gluconate 1 GM ONCE ONE 10/21 2345 DC 10/22 Sodium Chloride 100 ML IV 10/22 0044 0026 Calcium Gluconate 1 GM ONCE ONE 10/21 1700 DC 10/21 Sodium Chloride 100 ML IV 10/21 1759 1710 Ceftazidime 0 .STK-MED ONE 10/21 1659 DC .ROUTE Ceftazidime 1,000 MG ONCE ONE 10/21 1630 DC 10/21 IV 10/21 1631 1659 Ceftriaxone Sodium 2,000 MG DAILY 10/22 1000 DC IV Ceftriaxone Sodium 1,000 MG DAILY 10/22 1000 CAN IV Dextrose 25 GM ONCE ONE 10/22 1045 DC 10/22 IV 10/22 1046 1046 Dextrose 25 GM ONCE ONE 10/22 0230 DC 10/22 IV 10/22 0231 0240 Dextrose 25 GM ONCE ONE 10/21 2315 DC 10/21 IV 10/21 2316 2327 Dextrose 25 GM ONCE ONE 10/21 1700 DC 10/21 IV 10/21 1701 1659 Dextrose/Water 1,000 ML Q6H 10/22 0845 AC 10/22 IV 0850 Insulin Human Regular 10 UNITS ONCE ONE 10/22 0230 DC 10/22 IV 10/22 0231 0240 Insulin Human Regular 10 UNITS ONCE ONE 10/21 2330 DC 10/21 IV 10/21 2331 2323 Insulin Human Regular 0 ONCE ONE 10/21 2315 CAN IV 10/21 2316 Insulin Human Regular 10 UNITS ONCE ONE 10/21 1700 DC 10/21 IV 10/21 1701 1659 Magnesium Sulfate 1 GM ONCE ONE 10/22 1300 AC 10/22 Dextrose/Water 100 ML IV 10/22 1659 1323 Metoprolol Tartrate 0 .STK-MED ONE 10/21 2229 DC IV Metoprolol Tartrate 5 MG ONCE ONE 10/21 2215 DC 10/21 IV 10/21 2216 2231 Norepinephrine 4 MG Q3H 10/22 0900 AC 10/22 Sodium Chloride 250 ML IV 1324 Norepinephrine 4 MG Q24H 10/22 0600 DC 10/22 Sodium Chloride 250 ML IV 0544 Norepinephrine 4 MG Q4H 10/22 0600 DC Sodium Chloride 250 ML IV Norepinephrine 4 MG .STK-MED ONE 10/22 0527 DC IV 10/22 0528 Pantoprazole Sodium 40 MG DAILY 10/22 1120 AC 10/22 IV 1323 Sodium Bicarbonate 50 MEQ Q1 10/22 0000 DC 10/22 IV 10/22 0201 0230 Sodium Chloride 1,000 ML Q6H 10/22 0815 DC IV Sodium Chloride 1,000 ML BOLUS ONE 10/22 0415 DC 10/22 IV 10/22 0514 0448 Sodium Chloride 1,000 ML Q10H 10/22 0300 DC 10/22 IV 0640 Sodium Chloride 1,000 ML BOLUS ONE 10/22 0030 DC 10/22 IV 10/22 0129 0026 Sodium Chloride 1,000 ML BOLUS ONE 10/21 2315 DC 10/21 IV 10/22 0014 2317 Sodium Chloride 1,000 ML Q20H 10/21 2215 DC 10/22 IV 10/22 0314 0230 Sodium Chloride 500 ML BOLUS ONE 10/21 1915 DC 10/21 IV 10/21 2014 1900 Sodium Chloride 1,800 ML ONCE ONE 10/21 1630 DC 10/21 IV 10/21 1631 1700 Sodium Chloride 1,000 ML BOLUS ONE 10/21 1545 DC 10/21 IV 10/21 1744 1550 Sodium Polystyrene 60 ML ONCE ONE 10/22 1100 DC 10/22 Sulfonate AR 10/22 1101 1109 Sodium Polystyrene 60 ML ONCE ONE 10/22 0400 DC 10/22 Sulfonate AR 10/22 0401 0448 Sodium Polystyrene 60 ML ONCE ONE 10/22 0215 DC 10/22 Sulfonate AR 10/22 0216 0347 Sodium Polystyrene 120 ML ONCE ONE 10/22 0030 DC Sulfonate PO 10/22 0031 Sodium Polystyrene 60 ML ONCE ONE 10/21 2345 DC Sulfonate AR 10/21 2346 Vancomycin HCl 1,000 MG ONCE ONE 10/21 1630 DC 10/21 Dextrose/Water 250 ML IV 10/21 1729 1810 Vitamin A/Vitamin D 1 ELIZABETH BID 10/22 1233 AC 10/22 TOP 1324 Zinc Oxide 1 ELIZABETH BID 10/22 1234 AC 10/22 TOP 1324 Past History Past Medical History Neurological: dementia, Parkinson's disease EENT: NONE Cardiovascular: AFIB, CAD, CHF, hypertension, hyperlipidemia Respiratory: COPD, obstructive sleep apnea Gastrointestinal: NONE Hepatic: NONE Renal: benign prost hyperplasia, chronic kidney disease Musculoskeletal: chronic back pain, spinal stenosis Psychiatric: depression Endocrine: diabetes, hypothyroidism Blood Disorders: NONE Cancer(s): bladder cancer MANAGER OF BUSINESS/Reproductive: NONE Past Surgical History Surgical History: non-contributory Psychosocial History Strengths/Capabilities: Supportive significant other. Physical Limitations (Interventions): Bed bound Psychiatric Treatment History Psych Treatment Psychiatric Treatment Yes Outpatient Treatment Yes Location of Treatment PCP, Dr. Rito Loredo. in [place] Reason for Treatment By history and notes, depression Dates of Treatment Ongoing Response to Treatment Unknown Diagnosis: Dementia Depression Risk Factors: age (under 24/over 65), chronic/serious med cond., male Substance Use/Abuse History Drug Use/Abuse Substances Used/Abused No (Unknown) Substance Abuse Treatment Substance Abuse Treatment Past Substance Abuse [place] No Assessment/Plan Mental Status Orientation: Not able to speak or write answers, but is awake. when asked if he would like me to come back later, he states, "Come back later," with great effort. Affect: Constricted Speech: Poverty Neuro-vegetative: Unknown Mental Status Exam: The patient is lying in his ICU bed calmly, having had his BiPap just discontinued. He is unable to vocalize and does not respond to a question about wishing to write his answers, or answer YES or NO questions by moving his head. We are unable to interview the patient to evaluate his cognitive status, at this time. Lab Results: Laboratory Tests 10/22 10/22 10/22 10/22 10/22 1430 1430 1300 1130 1000 Blood Gas pH (7.35 - 7.45 PH) 7.34 L pCO2 (35 - 45 TORR) 23 L pO2 (80 - 100 TORR) 110 H HCO3 (21 - 28 MEQ/L) 12 L ABG O2 Sat (Measured) (>96.0 %) 96.0 P-50 (Temp Corrected) N Carboxyhemoglobin (1.5 - 5.0 %) 1.3 L O2 Concentration % 25% Respiration Rate (BPM) 24 O2 Delivery Method BIPAP Vent Mode ST Expiratory Pressure (CM H2O P) 4 Inspiratory Pressure (CM H2O P) 12 Chemistry Lactic Acid (0.7 - 2.1 mmol/L) Pending 3.3 H Troponin I Pending Cancelled Hematology CBC w Diff Pending WBC Pending RBC Pending Hgb Pending Hct Pending MCV Pending MCH Pending MCHC Pending RDW Pending Plt Count Pending MPV Pending Miscellaneous Phlebotomy Draw Site LEFT RADIAL 10/22 10/22 10/22 10/22 0953 0900 0825 0800 Blood Gas pH (7.35 - 7.45 PH) 7.41 pCO2 (35 - 45 TORR) 13 L pO2 (80 - 100 TORR) 121 H HCO3 (21 - 28 MEQ/L) 8 L ABG O2 Sat (Measured) (>96.0 %) 99.0 P-50 (Temp Corrected) YES O2 Concentration % 2L Temperature (97.0 - 100.0 FARH) 97.0 O2 Delivery Method NC Chemistry Sodium (137 - 145 mmol/L) Cancelled 154 H Potassium (3.5 - 5.1 mmol/L) Cancelled 5.8 H Chloride (98 - 107 mmol/L) Cancelled 120 H Carbon Dioxide (22 - 30 mmol/L) Cancelled 15 L Anion Gap (5 - 16) Cancelled 20 H BUN (9 - 20 mg/dL) Cancelled 105 *H Creatinine (0.7 - 1.2 mg/dL) Cancelled 3.3 H Estimated GFR (>60 ml/min) 18 L Glucose (65 - 99 mg/dL) Cancelled 68 Serum Osmolality (285 - 295 MOSM/KG) 353 H Lactic Acid (0.7 - 2.1 mmol/L) Cancelled 3.0 H Calcium (8.4 - 10.2 mg/dL) Cancelled 8.1 L Phosphorus (2.5 - 4.5 mg/dL) Cancelled 6.3 H Magnesium (1.6 - 2.3 mg/dL) Cancelled 1.7 Total Bilirubin (0.2 - 1.3 mg/dL) Cancelled 1.3 AST (17 - 59 U/L) Cancelled 354 H ALT (21 - 72 U/L) Cancelled 49 Troponin I (<0.11 ng/ml) 1.08 *H Albumin (3.5 - 5.0 g/dL) Cancelled 2.4 L Miscellaneous Phlebotomy Draw Site LEFT RADIAL 10/22 10/22 10/22 10/22 10/22 0800 0553 0400 0310 0310 Chemistry Sodium (137 - 145 mmol/L) 153 H 152 H Cancelled 150 H Potassium (3.5 - 5.1 mmol/L) 5.6 H 5.9 H Cancelled 6.0 *H Chloride (98 - 107 mmol/L) 121 H 120 H Cancelled 119 H Carbon Dioxide (22 - 30 mmol/L) 15 L 14 L Cancelled 14 L Anion Gap (5 - 16) 17 H 19 H Cancelled 17 H BUN (9 - 20 mg/dL) 99 H 111 *H Cancelled 110 *H Creatinine (0.7 - 1.2 mg/dL) 3.2 H 3.3 H Cancelled 3.2 H Estimated GFR (>60 ml/min) 19 L 18 L 19 L Glucose (65 - 99 mg/dL) 47 *L 56 L Cancelled 133 H Lactic Acid (0.7 - 2.1 mmol/L) 3.8 H 4.0 H Calcium (8.4 - 10.2 mg/dL) 7.5 L 8.2 L Cancelled 8.0 L Phosphorus (2.5 - 4.5 mg/dL) 5.8 H 6.0 H Cancelled 6.1 H Magnesium (1.6 - 2.3 mg/dL) 1.7 1.8 Cancelled 1.8 Total Bilirubin (0.2 - 1.3 mg/dL) 1.3 1.3 Cancelled 1.2 AST (17 - 59 U/L) 228 H 140 H Cancelled 101 H ALT (21 - 72 U/L) 39 29 Cancelled 26 Creatine Kinase (55 - 170 U/L) 129 Troponin I (<0.11 ng/ml) Cancelled 0.52 *H Albumin (3.5 - 5.0 g/dL) 2.3 L 2.4 L Cancelled 2.4 L Toxicology Acetone Level (NEGATIVE) NEGATIVE 10/22 10/22 10/22 0200 0058 0000 Chemistry Sodium (137 - 145 mmol/L) Cancelled 152 H Potassium (3.5 - 5.1 mmol/L) Cancelled 5.8 H Chloride (98 - 107 mmol/L) Cancelled 120 H Carbon Dioxide (22 - 30 mmol/L) Cancelled 13 L Anion Gap (5 - 16) Cancelled 18 H BUN (9 - 20 mg/dL) Cancelled 108 *H Creatinine (0.7 - 1.2 mg/dL) Cancelled 3.4 H Estimated GFR (>60 ml/min) 18 L Glucose (65 - 99 mg/dL) Cancelled 88 Hemoglobin A1c (4.2 - 5.8 %) 6.2 H Lactic Acid (0.7 - 2.1 mmol/L) 3.8 H Calcium (8.4 - 10.2 mg/dL) Cancelled 8.1 L Phosphorus (2.5 - 4.5 mg/dL) Cancelled 6.3 H Magnesium (1.6 - 2.3 mg/dL) Cancelled 1.9 Total Bilirubin (0.2 - 1.3 mg/dL) Cancelled 1.1 AST (17 - 59 U/L) Cancelled 91 H ALT (21 - 72 U/L) Cancelled 21 Albumin (3.5 - 5.0 g/dL) Cancelled 2.6 L Hematology CBC w Diff MAN DIFF ORDERED WBC (4.8 - 10.8 /CUMM) 30.0 H RBC (4.70 - 6.10 /CUMM) 2.85 L Hgb (14.0 - 18.0 G/DL) 8.1 L Hct (42 - 52 %) 25.3 L MCV (80.0 - 94.0 FL) 88.6 MCH (27.0 - 31.0 PG) 28.4 MCHC (33.0 - 37.0 G/DL) 32.1 L RDW (11.5 - 14.5 %) 16.2 H Plt Count (130 - 400 /CUMM) 290 MPV (7.4 - 10.4 FL) 9.3 Gran % (42.2 - 75.2 %) 91.5 H Lymphocytes % (20.5 - 51.1 %) 3.2 L Monocytes % (1.7 - 9.3 %) 5.3 Eosinophils % (0 - 5 %) 0 Basophils % (0.0 - 2.0 %) 0 Absolute Granulocytes (1.4 - 6.5 /CUMM) 27.5 H Segmented Neutrophils (42.2 - 75.2 %) 87 H Band Neutrophils (0.0 - 5.0 %) 2 Absolute Lymphocytes (1.2 - 3.4 /CUMM) 1.0 L Lymphocytes (20.5 - 51.1 %) 4 L Monocytes (1.7 - 9.3 %) 7 Absolute Monocytes (0.10 - 0.60 /CUMM) 1.6 H Absolute Eosinophils (0.0 - 0.7 /CUMM) 0 Absolute Basophils (0.0 - 0.2 /CUMM) 0 Platelet Estimate (ADEQUATE) ADEQUATE Hypochromic-Microcytic 1+ Poikilocytosis 1+ Anisocytosis 1+ Macrocytic Cells FEW Terrie Cells 1+ Elliptocytes 1+ 10/21 10/21 10/21 2200 2115 1814 Chemistry Sodium (137 - 145 mmol/L) 147 H Potassium (3.5 - 5.1 mmol/L) 6.2 *H Chloride (98 - 107 mmol/L) 114 H Carbon Dioxide (22 - 30 mmol/L) 15 L Anion Gap (5 - 16) 17 H BUN (9 - 20 mg/dL) 111 *H Creatinine (0.7 - 1.2 mg/dL) 3.3 H Estimated GFR (>60 ml/min) 18 L Glucose (65 - 99 mg/dL) 109 H Lactic Acid (0.7 - 2.1 mmol/L) 4.0 H Calcium (8.4 - 10.2 mg/dL) 8.2 L Phosphorus (2.5 - 4.5 mg/dL) 6.5 H Magnesium (1.6 - 2.3 mg/dL) 1.9 Total Bilirubin (0.2 - 1.3 mg/dL) 0.9 AST (17 - 59 U/L) 83 H ALT (21 - 72 U/L) 25 Troponin I (<0.11 ng/ml) 0.27 *H Albumin (3.5 - 5.0 g/dL) 2.7 L Toxicology Urine Opiates Screen (>2000 NG/ML) 210.00 Methadone Screen (>300 NG/ML) < 40 Barbiturate Screen (>200 NG/ML) < 60 Ur Phencyclidine Scrn (>25 NG/ML) < 6.00 Amphetamines Screen (>1000 NG/ML) 420 U Benzodiazepines Scrn (>200 NG/ML) < 85 Urine Cocaine Screen (>300 NG/ML) < 50 Urine Cannabis Screen (>50 NG/ML) 22.30 10/21 10/21 1640 1540 Chemistry Sodium (137 - 145 mmol/L) 148 H Potassium (3.5 - 5.1 mmol/L) 6.4 *H Chloride (98 - 107 mmol/L) 113 H Carbon Dioxide (22 - 30 mmol/L) 16 L Anion Gap (5 - 16) 19 H BUN (9 - 20 mg/dL) 119 *H Creatinine (0.7 - 1.2 mg/dL) 3.5 H Estimated GFR (>60 ml/min) 17 L BUN/Creatinine Ratio (7 - 25 %) 34.0 H Glucose (65 - 99 mg/dL) 189 H Lactic Acid (0.7 - 2.1 mmol/L) 3.0 H Calcium (8.4 - 10.2 mg/dL) 8.5 Total Bilirubin (0.2 - 1.3 mg/dL) 0.4 AST (17 - 59 U/L) 75 H ALT (21 - 72 U/L) 24 Alkaline Phosphatase (< 127 U/L) 117 Troponin I (<0.11 ng/ml) 0.22 *H Total Protein (6.3 - 8.2 g/dL) 6.9 Albumin (3.5 - 5.0 g/dL) 3.2 L Globulin (1.9 - 4.2 gm/dL) 3.7 Albumin/Globulin Ratio (1.1 - 2.2 %) 0.9 L Hematology CBC w Diff NO MAN DIFF REQ WBC (4.8 - 10.8 /CUMM) 27.0 H RBC (4.70 - 6.10 /CUMM) 2.54 L Hgb (14.0 - 18.0 G/DL) 7.2 *L Hct (42 - 52 %) 22.5 L MCV (80.0 - 94.0 FL) 88.6 MCH (27.0 - 31.0 PG) 28.5 MCHC (33.0 - 37.0 G/DL) 32.1 L RDW (11.5 - 14.5 %) 17.0 H Plt Count (130 - 400 /CUMM) 334 MPV (7.4 - 10.4 FL) 9.1 Gran % (42.2 - 75.2 %) 93.6 H Lymphocytes % (20.5 - 51.1 %) 3.0 L Monocytes % (1.7 - 9.3 %) 3.4 Eosinophils % (0 - 5 %) 0 Basophils % (0.0 - 2.0 %) 0 Absolute Granulocytes (1.4 - 6.5 /CUMM) 25.2 H Absolute Lymphocytes (1.2 - 3.4 /CUMM) 0.8 L Absolute Monocytes (0.10 - 0.60 /CUMM) 0.9 H Absolute Eosinophils (0.0 - 0.7 /CUMM) 0 Absolute Basophils (0.0 - 0.2 /CUMM) 0 Urines Urinalysis HEAVY H Urine Color (YEL,AMB,STR) BROWN H Urine Clarity (CLEAR) TURBD H Urine pH (5.0 - 8.0) 5.0 Ur Specific [place] (1.001 - 1.035) 1.025 Urine Protein (NEG,<30 MG/DL) >=300 H Urine Ketones (NEG) TRACE H Urine Nitrite (NEG) POS H Urine Bilirubin (NEG) MOD H Urine Urobilinogen (0.1 - 1.0 EU/dl) 1.0 Ur Leukocyte Esterase (NEG) LARGE H Ur Microscopic SEDIMENT EXAMINED Urine RBC (0 - 5 /HPF) 5-10 H Urine WBC (0 - 2 /HPF) PACKD H Urine Bacteria (NEG/NONE) MOD H Urine Hemoglobin (NEG) LARGE H Urine Glucose (N MG/DL) NEG Diffential Diagnosis: F03.90 Dementia, unspecified F32.9 Depression, unspecified Rule out delirium due to a toxic or metabolic medical condition Impression: The patient is not able to communicate a choice about treatment care decisions, at this time. The possible looming decision may be for a nephrostomy, to relieve signs and symptoms of urinary tract obstruction, secondary to bladder cancer. We are unable to evaluate his understanding, appreciation of the facts, nor reasoning relative to informed consent for this procedure. The patient's girlfriend/SO, Subha, had indicated that the patient had signed a DNR/DNI order at [facility], but per staff conversation by Dr. Granados today, their records indicate that the patient was full code on 11/05/2015. The patient is unable to express a choice. There is no one with legal standing available or known who can express a choice. In the absence of another directive , we default to FULL CODE, and provide all interventions until someone comes forward to say otherwise, per my discussion with Octaviano Ramos Esq., assembling inspector for this hospital. A central line to infuse pressors has been placed. Provisional Treatment Plan: 1. Please look for any document in the electronic chart here at [facility] supporting the order in 2014 for DNR and DNI. 2. If no other healthcare directive is found, and no kin come forward, the patient needs to be FULL CODE. 3. Please advise if the patient begins to cognitively clear. We will continue to follow along. Thank you for this consult.
[2017-10-22 15:02] LABS: ABSOLUTE BASOPHIL COUNT 0 /CUMM (0.0-0.2); ABSOLUTE EOSINOPHIL COUNT 0 /CUMM (0.0-0.7); ABSOLUTE LYMPH COUNT 0.8 /CUMM (1.2-3.4); BASOPHIL % 0 % (0.0-2.0); EOSINOPHIL % 0 % (0-5); MEAN PLATELET VOLUME 9.3 FL (7.4-10.4); RBC DISTRIBUTION WIDTH 16.6 % (11.5-14.5)
[2017-10-22 15:09] LABS: ABSOLUTE GRANULOCYTE CT 43.9 /CUMM (1.4-6.5); ABSOLUTE MONOCYTE COUNT 1.2 /CUMM (0.10-0.60); GRANULOCYTE % 95.7 % (42.2-75.2); HEMATOCRIT 24.1 % (42-52); MEAN CORPUSCULAR HGB 29.1 PG (27.0-31.0); MEAN CORPUSCULAR HGB CONC 32.7 G/DL (33.0-37.0); MEAN CORPUSCULAR VOLUME 89.1 FL (80.0-94.0); PLATELET COUNT 327 /CUMM (130-400)
[2017-10-22 15:27] LABS: WHITE BLOOD CELL COUNT 45.8 /CUMM (4.8-10.8)
[2017-10-22 16:00] VITALS: BP 110/62
--- NOTE | 2017-10-22 18:52 | Event Note ---
Event Note Event Note: S/B: Labs showing worsening white count, he is currently making urine at 40cc/ hr. On examination is more awake than this afternoon, He is able to squeeze my hand when told. A: 77 yr gentleman h/o of Elijah on xarelto (taken yesterday morning), current admission sepsis of urological origin. Imaging significant for right grade 3 hydroureteronephrosis without a demonstrable obstructive calculus. There are nonobstructive renal calculi. R: Patient is full code and nonconsentable. As his hydronephrosis is subacute ( approx one month duration) no urgency for R percutaneous nephrostomy immediate. Plan is for the procedure tommorrow. IR has been notifed. Given his recent use of xarelto he is at high risk for bleed. Will give one time dose of solumedrol tonight and tommorrow. The above was in discussion with attending.
[2017-10-22 19:03] LABS: PT 22.6 SEC (9.4-12.5); PTT 34 SEC (25-37)
--- NOTE | 2017-10-22 22:42 | Cons- Cardiology ---
General Information and HPI Consulting Request Date of Consult: 10/22/17 Requested By: Melia Maldonado MD History of Present Illness: This patient is a 77 year old male with history of chronic atrial fibrillation, CAD, CHF, hypertension, hyperlipidemia, bladder cancer and Parkinson's disease. He was brought to [facility] for evaluation of altered mental status and weakness. Last evening this patient was noted to be tachhycardic in atrial fibrillation and was given Metoprolol to slow his heart rate. This resulted in a low blood pressure. He is now on norepinephrine due to hypotension which is presumably due to sepsis. He has converted to a sinus rhythm. The patient cannot offer a history and is currently on BIPAP. This patient lives with a home theatre technician and has been feeling weaker compared to his baseline for the past week. He was also noted to have hematuria. He was seen by his PCP yesterday and was started on Cefuroxime for suspected pneumonia. During the office visit, labs were obtained. The PCP called and notified them that the patient needs to go to the emergency room because his WBC count was elevated to 25,000. The patient was not noted to have any fever, chills, chest pain, difficulty breathing at home. In [place] the patient was found to have an elevated creatinine and elevated potassium. He also has elevated hepatic transaminases consistent with shock liver and has an elevated troponin consistent with a NSTEMI likely from increased myocardial demand. Allergies/Medications Allergies: Coded Allergies: NO KNOWN ALLERGIES (03/11/12) Home Med List: Atorvastatin Calcium (Lipitor) 20 MG TABLET 1 TAB PO DAILY Hyperlipidemia ( Reported) Bupropion HCl (Bupropion XL) 150 MG TAB.ER.24H 1 TAB PO DAILY Mental health ( Reported) Carbidopa/Levodopa (Carbidopa-Levodopa 25-100 Tab) 25 MG-100 MG TABLET 2 TAB PO TID Parkinson (Reported) Docusate Sodium (Colace) 100 MG CAPSULE 1 CAP PO BID Stool softener (Reported ) Dronabinol (Marinol) 2.5 MG CAPSULE 1 CAP PO BID cancer (Reported) Fentanyl (Duragesic) 25 MCG/HOUR PATCH.TD72 1 PAT TOP Q3D pain (Reported) Furosemide (Lasix) 80 MG TABLET 1 TAB PO DAILY Diuretic (Reported) Levothyroxine Sodium (Synthroid) 125 MCG TABLET 1 TAB PO DAILY Thyroid ( Reported) Linagliptin (Tradjenta) 5 MG TABLET 1 TAB PO DAILY DM (Reported) Morphine Sulfate 15 MG TABLET 1 TAB PO BIDP PRN Pain (Reported) Oxycodone HCl/Acetaminophen (Endocet 10-325 MG Tablet) 10 MG-325 MG TABLET 1 TAB PO BIDP PRN Pain (Reported) Potassium Chloride 20 MEQ PACKET 20 MEQ PO DAILY Supplement (Reported) Rivaroxaban (Xarelto) 15 MG TABLET 1 TAB PO DAILY A.fib (Reported) Tamsulosin HCl (Flomax) 0.4 MG CAP.ER.24H 1 CAP PO DAILY prostate (Reported) Trazodone HCl 50 MG TABLET 0.5 TAB PO QPM Insomnia (Reported) Vitamin B Complex 1 EACH CAPSULE 1 TAB PO DAILY Supplement (Reported) Review of Systems Review of Systems: A review of systems is unobtainable. Past History Travel History Traveled to [place] past 21 day No Medical History Blood Transfusion Hx: Yes Neurological: dementia, Parkinson's disease EENT: NONE Cardiovascular: AFIB, CAD, CHF, hypertension, hyperlipidemia Respiratory: COPD, obstructive sleep apnea Gastrointestinal: NONE Hepatic: NONE Renal: benign prost hyperplasia, chronic kidney disease Musculoskeletal: chronic back pain, spinal stenosis Psychiatric: depression Endocrine: diabetes, hypothyroidism Blood Disorders: NONE Cancer(s): bladder cancer LIQUOR MAKER/Reproductive: 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 Needs Assist: dressing, toileting, bathing. Ambulation: walker IADLs Independent: telephone. Needs Assist: shopping, housework, finances, food prep, transportation, medication admin. ECHO Results (as available) Report: Normal left ventricular systolic function with mild concentric hypertrophy. Mild aortic stenosis. Mild pulmonary hypertension. Mild left atrial enlargement. Exam & Diagnostic Data Vital Signs and I&O Vital Signs Date Time Temp Pulse Resp B/P B/P Pulse O2 O2 Flow FiO2 Mean Ox Delivery Rate 10/22 2151 83 93/43 10/22 1999 98 BIPAP 25% 10/22 1931 78 98 10/22 1731 96.9 74 23 114/66 10/22 1624 72 98 10/22 1600 98 BIPAP 25% 10/22 1600 96.9 73 23 110/62 98 BIPAP 25% 10/22 1358 100 10/22 1317 99 10/22 1200 97.2 75 27 124/66 97 BIPAP 25% 10/22 1200 97 BIPAP 25% 10/22 0937 73 97 10/22 0902 Nasal 2.0L Cannula 10/22 0800 97.4 73 21 104/58 99 Nasal 2.0L Cannula 10/22 0800 98 Nasal 2.0L Cannula 10/22 0544 72 83/32 10/22 0400 99 Nasal 2.0L Cannula 10/22 0325 94 Nasal 2.0L Cannula 10/22 0000 90 Room Air 10/22 0000 97.0 67 26 72/40 91 Room Air Intake & Output 10/22 1600 16 0800 10/22 0000 10/21 1600 10/21 0800 10/21 0000 Intake Total 1562 2983 1800 Output Total 200 115 40 Balance 1362 2868 1760 Intake, IV 1562 2983 1800 Intake, Oral 0 Number 2 3 Bowel Movements Output, Urine 200 115 40 Patient 167 lb 216 lb Weight Weight Bed scale Bed scale Measurement Method Physical Exam: General: WD/WN male in NAD; awake and responsive on BIPAP HEENT: NC/AT, PERRL, EOMI Neck: no JVD Heart: RRR with 2/6 systolic murmur Lungs: clear bilaterally Abdomen: soft, NT, +ve bowel sounds Extremities: no edema Assessment/Plan Assessment/Plan * This patient carries a history of myocardial ischemia and has a decreased EF along with mild to moderate aortic stenosis. In the setting of urosepsis he was hypotensive and tachycardic leading to increased myocardial demand and a small rise in cardiac enzymes. He was initially started on a beta niecy to control his heart rate and he is improved after converting to a sinus rhythm. Unfortunately, he cannot receive much in the way of cardiac medications now due to his borderline blood pressure. He should continue on anticoagulation and a statin. * Continue his norepinephrine with a goal BP of 90 mmHg. He appears dry and will need NS in the setting of his urosepsis. * The patient also is on BIPAP but with a mask that is too small and covers his mouth. I would be sure that this is not obstructing his airway. * Follow cardiac enzymes until they peak. * If the patient again goes into atrial fibrillation then begin amiodarone since this should be well tolerated even in the setting of sepsis and will help to maintain a sinus rhythm. Atrial fibrillation may be poorly tolerated in the setting of both sepsis and aortic stenosis. * Give kayexalate for hyperkalemia. Consult Acknowledgment - Thank you for your consult request.
[2017-10-23] VITALS: BP 114/60
[2017-10-23 05:44] LABS: ABSOLUTE BASOPHIL COUNT 0 /CUMM (0.0-0.2); ABSOLUTE EOSINOPHIL COUNT 0 /CUMM (0.0-0.7); ABSOLUTE GRANULOCYTE CT 44.5 /CUMM (1.4-6.5); BASOPHIL % 0 % (0.0-2.0); EOSINOPHIL % 0 % (0-5); GRANULOCYTE % 97.3 % (42.2-75.2); HEMATOCRIT 23.3 % (42-52); MEAN CORPUSCULAR HGB 29.3 PG (27.0-31.0); MEAN CORPUSCULAR HGB CONC 32.5 G/DL (33.0-37.0); MEAN CORPUSCULAR VOLUME 90.1 FL (80.0-94.0); MEAN PLATELET VOLUME 9.7 FL (7.4-10.4); PLATELET COUNT 240 /CUMM (130-400); RED BLOOD CELL CT 2.58 /CUMM (4.70-6.10)
[2017-10-23 06:02] LABS: ABSOLUTE LYMPH COUNT 1.5 /CUMM (1.2-3.4); ABSOLUTE MONOCYTE COUNT 1.2 /CUMM (0.10-0.60)
[2017-10-23 06:03] LABS: WHITE BLOOD CELL COUNT 45.8 /CUMM (4.8-10.8)
[2017-10-23 08:00] VITALS: BP 110/52
--- NOTE | 2017-10-23 08:36 | PN- Resident CRCU ---
See Addendum Subjective HPI/CRCU Issues: Sepsis likely secondary to UTI versus pneumonia 24 Hour Events: Patient remains minimally responsive. Maximum temperature 97 Heart rate ranging in 70s Normal sinus rhythm Blood pressure ranging in 120s to 100/50s to 60s was on BiPAP setting 12/4 rate 24 overnight now on nasal cannula 2L maintaining O2 saturation left IJ catheter On Levophed 7mcg WBC count trending up 45.8 with left shift patient on one Ceftaz and Vanco H/H 7.6/23.3 status post 1 unit blood transfusion on 10/21, platelets stable Sodium 149, potassium 5.7 hyperkalemia persistant, phosphorus 6.1, chloride 118, bicarbonate 14, BUN 111, anion gap 16 creatinine 3.4 Lactic acid trended down to 2.5 AST 720 ALT 135 minus is trending up CXR IMPRESSION: Good positioning of left IJ catheter. No pneumothorax. We have gotten in touch with patient's daughter regarding decision-making, who was happy to make desicions on the patients behalf, she was particularly concerned about his prognosis. If outcomes appear favorable, she is willing to proceed with a IR guided nephrostomy. Attending Dr. Allen in touch with the daughter Objective Vital Signs & I&O Last 8 Hrs of Vitals and I&O: Intake & Output 10/23 1600 Intake Total Output Total Balance Patient 167 lb Weight Exam General Appearance: intubated Current Medications: Current Medications Sig/Cedrick Start time Last Medication Dose Route Stop Time Status Admin Albuterol Sulfate 3 ML Q6PRN PRN 10/22 0330 AC 10/22 INH 0323 Ampicillin Sodium/ 3,000 MG Q6H 10/22 0300 DC 10/22 Sulbactam Sodium IV 0849 Sodium Chloride 100 ML Calcium Gluconate 1 GM ONCE ONE 10/22 1845 DC Sodium Chloride 100 ML IV 10/22 1944 Ceftazidime 1,000 MG Q24H 10/22 1545 AC 10/22 IV 1720 Dextrose 25 GM ONCE ONE 10/23 0415 DC 10/23 IV 10/23 0416 0507 Dextrose 25 GM ONCE ONE 10/22 1845 DC 10/22 IV 10/22 1846 2135 Dextrose/Sodium 1,000 ML Q10H 10/22 1930 AC 10/22 Chloride IV 1945 Dextrose/Water 1,000 ML Q10H 10/22 1930 DC IV Dextrose/Water 1,000 ML Q13H 10/22 1800 DC IV Dextrose/Water 1,000 ML Q6H 10/22 0845 DC 10/22 IV 1720 Furosemide 40 MG ONCE ONE 10/23 0900 DC 10/23 IV 10/23 0901 0851 Insulin Aspart 0 TIDAC 10/22 1700 DC SC Insulin Human Regular 10 UNITS ONCE ONE 10/23 0415 DC 10/23 IV 10/23 0416 0510 Insulin Human Regular 0 Q6 10/22 2359 AC 10/23 SC 0511 Insulin Human Regular 5 UNITS ONCE ONE 10/22 2100 DC 10/22 SC 10/22 2101 2118 Insulin Human Regular 3 UNITS ONCE ONE 10/22 1730 DC 10/22 IV 10/22 1731 1720 Magnesium Sulfate 1 GM ONCE ONE 10/22 1300 DC 10/22 Dextrose/Water 100 ML IV 10/22 1659 1323 Methylprednisolone 50 MG ONCE ONE 10/23 1000 DC IV 10/23 1001 Methylprednisolone 80 MG .STK-MED ONE 10/22 1940 DC IM 10/22 1941 Methylprednisolone 50 MG ONCE ONE 10/22 1930 DC 10/22 IV 10/22 1931 1946 Morphine Sulfate 2 MG Q2 PRN 10/23 1330 UNVr 10/23 IV 1323 Norepinephrine 4 MG Q3H 10/22 0900 DC 10/23 Sodium Chloride 250 ML IV 0811 Pantoprazole Sodium 40 MG DAILY 10/22 1120 AC 10/23 IV 0912 Scopolamine HBr 1 PAT Q72H 10/23 1300 AC TOP Sodium Polystyrene 60 ML ONCE ONE 10/23 0100 DC 10/23 Sulfonate [place] 10/23 0101 0108 Sodium Polystyrene 60 ML ONCE ONE 10/22 2130 DC 10/22 Sulfonate [place] 10/22 2131 2135 Vancomycin HCl 1,000 MG Q24H 10/22 1545 AC 10/22 Dextrose/Water 250 ML IV 1720 Vitamin A/Vitamin D 1 ELIZABETH BID 10/22 1233 AC 10/23 TOP 0851 Zinc Oxide 1 ELIZABETH BID 10/22 1234 AC 10/23 TOP 0851 Impression/Plan Impression/Problem List Impression: This is a 77-year-old male with past medical history significant for chronic back pain, atrial fibrillation on Xarelto, CAD, CHF, hypertension, hyperlipidemia, BPH, bladder cancer, Parkinson's,? Diabetes who was brought to the hospital for weakness, altered mental status, and leukocytosis. Initially we want to get nephrostomy today for right-sided decompression. My resident Dr. Figueroa and Dr. Allen got hold of the daughter who decided to be involved in patient's care. She decided to convert patient to comfort measures only considering grave prognosis He is being treated and evaluated for following conditions Respiratory #Suspected Aspiration pneumonia Chest x-ray significant for Right base atelectasis. Otherwise no acute pulmonary disease seen. The patient is presenting with leukocytosis. We are entertaining the possibility of aspiration pneumonia. CT scan Bilateral lower lobe infiltrates, right greater than left.The other possible causes of sepsis is UTI in setting of Right grade 3 hydroureteronephrosis and due to stage IV bladder cancer. -Currently on Unasyn -If fever or worsening WBC count panculture and consider changing the antibiotic to swathi spectrum. -Urine strep and Legionella antigen -Follow up blood cultures -Follow sputum culture -Flu Negative -TRC nebs -Continue BiPAP -Repeat ABGs -Repeat CXR Infection #Sepsis likely secondary to UTI versus pneumonia: He received IV vancomycin and ceftazidime 1 in the ED. Blood culture in 2014 positive for Escherichia coli sensitive to cefazolin, gentamicin, nitrofurantoin, amoxicillin clavulanic acid, ciprofloxacin. Most probable cause of sepsis is UTI I in setting of Right grade 3 hydroureteronephrosis and due to stage IV bladder cancer. -Leukocytosis up to 30>27 -Lactic acid trending up -Blood cultures No growth so far -Urine culture GNR, follow-up final sensitivities -Consider broadening antibiotic coverage to Ceftaz Cardiovascular #Positive troponins with EKG changes: Patient presented with tachycardia and ST depression in V4, V5 and positive troponin. Appears to be demand supply mismatch. Dr. Dean suggested to slow the heart rate in setting of sepsis and acute anemia and recommended 5 mg IV Lopressor 1 -Troponins peaked at 1.06 -If blood pressure allows start the patient on Nitropaste. -Follow-up echocardiogram -Aspirin -Follow-up cardiology recommendations #Atrial fibrillation -Xarelto on in setting of acute blood loss anemia Hematology #Leukocytosis Likely 2/2 sepsis secondary to UTI versus pneumonia Most probable cause of sepsis is UTI I in setting of Right grade 3 hydroureteronephrosis and due to stage IV bladder cancer. -Monitor WBC count -Consider switching to broad-spectrum antibiotics vancomycin and Ceftaz #Acute blood loss anemia Likely 2/2 hematuria, has received 1 unit PRBC in the ED. -monitor H&H closely, -Hold Xarelto. -Goal H/H 04/29 transfuse if necessary Metabolic #DM/Hypoglycemia Hb a1c 6.7 in 2016. Med list has Tradjenta however unclear if the patient has been taking this. -Accuchecks q4 -HbA1c 6.2 -Pt's Blood sugar dropped 87 to recieved push of dextrose #Hypernatremia, hyperkalemia, hyperchloremia, Acid Base Disturbance -See below Alimentary -Continue IV Protonix -NPO Nephrology #BLAIR likely 2/2 to combination of R sided obstructive uropathy & ATN in setting of septic shock. This is a possibility of prerenal component -IVF -If aggressive care is to continue, need to consider R sided decompression via nephrostomy. Dr. Hale does not believe that patient is a candidate for surgery at this present situation #Hyperkalemia likely 2/2 BLAIR & sepsis -repeat Kayexalate as necessary if K > 5.5 [place] or Via NG -Monitor BEP #Acid Base Disturbance mixed respiratory alkalosis & metabolic acidosis; Anion Gap due to renal failure , lactic acid, & possible ketoacidosis with positive urine ketones. -Nephrology on board -Continue IVF -Monitor BEP -Check acetone #Hypernatremia hyperchloremia Free water defict of 4L. pt recieved 4L so far, NS contributing to Hypernatremia hyperchloremia -We are going to continue IVF and are going to switch fluids to D5 half normal saline #CKD: mod, stage 3 likely 2/2 DM, HTN, & previous UTIs #Right grade 3 hydroureteronephrosis in setting of stage IV bladder cancer -Consider R sided decompression via nephrostomy. Urology on board does not want any active intervention at this moment DVT prophylaxis with ALPS. Diet NPO Code Status FC see psy note Problem List: 1. Dyspnea Pain Ratin Tomorrow's Labs & Rationales: none Plan DVT/Prophylaxis: mechanical
[2017-10-23 09:08] LABS: PT 22.6 SEC (9.4-12.5)
--- NOTE | 2017-10-23 09:26 | Event Note ---
Event Note Event Note: S: Abdominal CT showed evidence of: Right grade 3 hydroureteronephrosis without a demonstrable obstructive calculus. There are nonobstructive renal calculi. Question intervention B: This is a 77 year old gentleman with PMH: chronic back pain, a fib, CAD s/p CABG , HF, HTN, HLD, BPH, CKD, DM, hypothyroidism, Parkinson's Disease, Bladder mass admitted in the CRCU for septic shock. A/R: Spoke to the lily Prajapati who was happy to make desicions on the patients behalf. I got the sense that she was particularly concerned about his prognosis and if outcomes appear favorable, she would be willing to proceed. She can be reached on her cell phone on [phone] or her land line: [phone].
--- NOTE | 2017-10-23 11:51 | PN- CRCU ---
Subjective HPI/Critical Care Issues: Patient remains minimally responsive. Seen and examined multiple times and Discussed with [facility] attendings including IR, Cardio, Anesthesia Maximum temperature 97 Heart rate ranging in 70s Normal sinus rhythm Blood pressure ranging in 120s to 100/50s to 60s was on BiPAP setting 12/ rate 24 overnight now on nasal cannula 2L maintaining O2 saturation left IJ catheter On Levophed 7mcg WBC count trending up 45.8 with left shift patient on one Ceftaz and Vanco H/H 7.6/23.3 status post 1 unit blood transfusion on 10/21, platelets stable Sodium 149, potassium 5.7 hyperkalemia persistant, phosphorus 6.1, chloride 118, bicarbonate 14, BUN 111, anion gap 16 creatinine 3.4 Lactic acid trended down to 2.5 AST 720 ALT 135 minus is trending up CXR IMPRESSION: Good positioning of left IJ catheter. No pneumothorax. Objective Current Medications: Current Medications Sig/Cedrick Start time Last Medication Dose Route Stop Time Status Admin Albuterol Sulfate 3 ML Q6PRN PRN 10/22 0330 AC 10/22 INH 0323 Ampicillin Sodium/ 3,000 MG Q6H 10/22 0300 DC 10/22 Sulbactam Sodium IV 0849 Sodium Chloride 100 ML Calcium Gluconate 1 GM ONCE ONE 10/22 1845 DC Sodium Chloride 100 ML IV 10/22 1944 Ceftazidime 1,000 MG Q24H 10/22 1545 AC 10/22 IV 1720 Dextrose 25 GM ONCE ONE 10/23 0415 DC 10/23 IV 10/23 0416 0507 Dextrose 25 GM ONCE ONE 10/22 1845 DC 10/22 IV 10/22 1846 2135 Dextrose/Sodium 1,000 ML Q10H 10/22 1930 AC 10/22 Chloride IV 1945 Dextrose/Water 1,000 ML Q10H 10/22 1930 DC IV Dextrose/Water 1,000 ML Q13H 10/22 1800 DC IV Dextrose/Water 1,000 ML Q6H 10/22 0845 DC 10/22 IV 1720 Furosemide 40 MG ONCE ONE 10/23 0900 DC 10/23 IV 10/23 0901 0851 Insulin Aspart 0 TIDAC 10/22 1700 DC SC Insulin Human Regular 10 UNITS ONCE ONE 10/23 0415 DC 10/23 IV 10/23 0416 0510 Insulin Human Regular 0 Q6 10/22 2359 AC 10/23 IA 0511 Insulin Human Regular 5 UNITS ONCE ONE 10/22 2100 DC 10/22 SC 10/22 2101 2118 Insulin Human Regular 3 UNITS ONCE ONE 10/22 1730 DC 10/22 IV 10/22 1731 1720 Magnesium Sulfate 1 GM ONCE ONE 10/22 1300 DC 10/22 Dextrose/Water 100 ML IV 10/22 1659 1323 Methylprednisolone 50 MG ONCE ONE 10/23 1000 DC IV 10/23 1001 Methylprednisolone 80 MG .STK-MED ONE 10/22 1940 DC IM 10/22 1941 Methylprednisolone 50 MG ONCE ONE 10/22 1930 DC 10/22 IV 10/22 1931 1946 Norepinephrine 4 MG Q3H 10/22 0900 AC 10/23 Sodium Chloride 250 ML IV 0811 Pantoprazole Sodium 40 MG DAILY 10/22 1120 AC 10/23 IV 0912 Sodium Polystyrene 60 ML ONCE ONE 10/23 0100 DC 10/23 Sulfonate [place] 10/23 0101 0108 Sodium Polystyrene 60 ML ONCE ONE 10/22 2130 DC 10/22 Sulfonate [place] 10/22 2131 2135 Vancomycin HCl 1,000 MG Q24H 10/22 1545 AC 10/22 Dextrose/Water 250 ML IV 1720 Vitamin A/Vitamin D 1 ELIZABETH BID 10/22 1233 AC 10/23 TOP 0851 Zinc Oxide 1 ELIZABETH BID 10/22 1234 AC 10/23 TOP 0851 Vital Signs & I&O Last 24 Hrs of Vitals and I&O: Vital Signs Date Time Temp Pulse Resp B/P B/P Pulse O2 O2 Flow FiO2 Mean Ox Delivery Rate 10/23 0824 72 97 10/23 0800 97 BIPAP 10/23 0552 73 97 10/23 0400 98 BIPAP 10/23 0335 79 97 10/23 0124 78 94 10/23 0000 98 BIPAP 10/23 0000 97.3 76 25 114/60 96 BIPAP 10/22 2327 75 123/71 10/22 2245 78 96 10/22 2151 83 93/43 10/22 1999 98 BIPAP 25% 10/22 1931 78 98 10/22 1731 96.9 74 23 114/66 10/22 1624 72 98 10/22 1600 98 BIPAP 25% 10/22 1600 96.9 73 23 110/62 98 BIPAP 25% 10/22 1358 100 10/22 1317 99 10/22 1200 97.2 75 27 124/66 97 BIPAP 25% 10/22 1200 97 BIPAP 25% Intake & Output 10/23 1600 10/23 0800 10/23 0000 Intake Total 924 1260 Output Total 220 261 Balance 704 999 Intake, IV 924 1260 Intake, Oral 0 0 Number 0 Bowel Movements Output, Stool 1 Output, Urine 220 260 Impression/Plan Impression/Plan Impression/Plan: Physical Exam General Appearance: cachetic, lethargic, BiPap and sub nasal cannula Head: atraumatic, normal appearance Eyes: Bilateral: normal appearance. Ears, Nose, Throat: dry mucous membranes Neck: normal inspection, L IJ cath Respiratory: no respiratory distress, rhonchi Cardiovascular: friction rub (none), irregularly irregular Gastrointestinal: soft, non-tender, no organomegaly Back: normal inspection Extremities: swelling Neurologic/Psych: confused & disoriented Rigid Skin: intact, cyanosis (toes), tatoos Lymphatic: no anterior cervical malick, no axilllary adenopathy IMPRESSION This is a gentleman with very poor performance status, chronic back pain, atrial fibrillation on Xeralto, coronary artery disease and heart failure in the past, hypertension, hyperlipidemia, Parkinson's, bedbound, with very poor performance status, previous bladder cancer now came in with multiple organ dysfunction and failure. His issues include Significant shock related to obstructive uropathy from his bladder malignancy gram-negative rods in the urine Acute hypoxemic respiratory failure with no significant hypercarbia related to aspiration pneumonitis with probable fluid overload and congestive heart failure Ischemic heart disease with evidence suggestive of recent NV Significantly reduced ejection fraction Acute on chronic kidney disease now with obstructive uropathy with sepsis Multiple electrolyte abnormality related to multiple organ failure Chronic kidney disease Previous atrial fibrillation now in atrial fibrillation, on anticoagulation Multiple electrolyte abnormality with metabolic acidosis upon admission RECOMMENDATION I did have a long talk with the patient's daughter. Apparently patient's prior wishes were not to go through significant aggressive care as his performance status is extremely poor. He has become essentially bedbound with 24-hour care and patient was not keen on getting aggressive therapy. Ideally would've needed a percutaneous nephrostomy tube which had been arranged for this morning. For which he would've needed intubation as his respiratory status is poor. The anesthesiologist was at the bedside, IR team is ready for him to go downstairs after he was intubated. However per daughter's wishes he was made DNR/DNI and she did not want to put him through any aggressive measures any further. At this time per daughter's wishes patient will be made DNR/DNI Will not escalate any further care We will switch him to comfort care We will further avoid any further blood draws We will keep him comfortable Use low-dose morphine as needed Patient can be transitioned to regular medical floor with comfort as a goal Continue intravenous antibiotics however as he still could improve with conservative measures only Discontinue his vasopressors PT is critically ill total time spent overall 95 mins
[2017-10-23 12:00] VITALS: BP 114/50
--- NOTE | 2017-10-23 13:39 | Discharge Summary ---
Visit Information Visit Dates Admission Date: 10/21/17 Discharge Date: 10/25/2017 Hospital Course Course Attending Physician: Melia Maldonado MD Primary Care Physician: Gertrude JEAN,Reginald Guevara Hospital Course: The patient is 77-year-old male with past medical history significant for chronic back pain, atrial fibrillation on Xarelto, CAD, CHF, hypertension, hyperlipidemia, BPH, bladder cancer, Parkinson's,? Diabetes who was brought to the hospital for weakness, altered mental status, and leukocytosis. Dr. Figueroa and Dr. Allen got hold of the daughter who decided to be involved in patient's care. She initially made patient DNR/DNI and later was coverted to comfort measures only considering grave prognosis. The patient is going to be converted to hospice. -Continue morphine, ativan prn, and scopolamine He was being treated and evaluated for following conditions Respiratory #Suspected Aspiration pneumonia Chest x-ray significant for Right base atelectasis. Otherwise no acute pulmonary disease seen. The patient is presenting with leukocytosis. We are entertaining the possibility of aspiration pneumonia. CT scan Bilateral lower lobe infiltrates, right greater than left.The other possible causes of sepsis is UTI in setting of Right grade 3 hydroureteronephrosis and due to stage IV bladder cancer. -He was initially started on Unasyn and later shifted to ceftaz and vancomycin. Antibiotics discontinued after comfort care decision made Infection #Sepsis likely secondary to UTI versus pneumonia: He received IV vancomycin and ceftazidime 1 in the ED. Blood culture in 2014 positive for Escherichia coli sensitive to cefazolin, gentamicin, nitrofurantoin, amoxicillin clavulanic acid, ciprofloxacin. Most probable cause of sepsis is UTI I in setting of Right grade 3 hydroureteronephrosis and due to stage IV bladder cancer. -Leukocytosis, Lactic acidosis -He was initially started on Unasyn and later shifted to ceftaz and vancomycin. Antibiotics discontinued after comfort care decision made -Blood cultures No growth so far -Urine culture ESBL sensitive to meropenem and gentamicin Cardiovascular #Positive troponins with EKG changes: Patient presented with tachycardia and ST depression in V4, V5 and positive troponin. Appears to be demand supply mismatch. Dr. Dean suggested to slow the heart rate in setting of sepsis and acute anemia and recommended 5 mg IV Lopressor 1 -Troponins peaked at 1.06 #Atrial fibrillation -Xarelto on hold in setting of acute blood loss anemia Hematology #Leukocytosis Likely 2/2 sepsis secondary to UTI versus pneumonia Most probable cause of sepsis is UTI I in setting of Right grade 3 hydroureteronephrosis and due to stage IV bladder cancer. Urine culture showed growth of ESBL -Patient is comfort care off Antibiotics #Acute blood loss anemia Likely 2/2 hematuria, has received 1 unit PRBC in the ED. -H&H was monitored closely and Xarelto kept on hold Metabolic #DM/Hypoglycemia Hb a1c 6.7 in 2016. Med list has Tradjenta however unclear if the patient has been taking this. -Accuchecks later d/zaira q4, HbA1c 6.2 -Patient intermittently had episodes of hypoglycemia #Hypernatremia, hyperkalemia, hyperchloremia, Acid Base Disturbance -See below Alimentary IV Protonix, NPO Nephrology #BLAIR likely 2/2 to combination of R sided obstructive uropathy & ATN in setting of septic shock. There is a possibility of prerenal component -Intially R sided decompression via nephrostomy was being considered but later was not pursued in view of card prognosis #Hyperkalemia likely 2/2 BLAIR & sepsis -Treated with Kayexalate #Acid Base Disturbance mixed respiratory alkalosis & metabolic acidosis; Anion Gap due to renal failure , lactic acid, & possible ketoacidosis with positive urine ketones. -Nephrology on board -IVF, poor candidate for HD poor prognosis #Hypernatremia hyperchloremia Free water defict of 4L. pt recieved 4L so far, NS contributing to Hypernatremia hyperchloremia continue IVF and fluids switched to D5 half normal saline #CKD: mod, stage 3 likely 2/2 DM, HTN, & previous UTIs #Right grade 3 hydroureteronephrosis in setting of stage IV bladder cancer Intially R sided decompression via nephrostomy was being considered but later was not pursued in view of card prognosis DVT prophylaxis with ALPS only Xarelto on hold Allergies: Coded Allergies: NO KNOWN ALLERGIES (03/11/12) Disposition Summary Disposition Principal Diagnosis: Sepsis likely secondary to UTI versus pneumonia Right grade 3 hydroureteronephrosis in setting of stage IV bladder cancer Additional Diagnosis: Hypernatremia, hyperkalemia, hyperchloremia, Acid Base Disturbance Discharge Disposition: hospice - medical facilit Discharge Instructions General Discharge Information Code Status: Hospice Patient's Diet: n/a Patient's Activity: n/a Follow-Up Instructions/Appts: n/a Copies To: Gertrude JEAN,Reginald Guevara
[2017-10-23 16:00] VITALS: BP 90/60
[2017-10-23 23:00] VITALS: BP 90/60
[2017-10-24 06:59] VITALS: BP 100/62
[2017-10-24 14:16] VITALS: BP 112/60
--- NOTE | 2017-10-24 17:56 | PN- Housestaff ---
Marito JEAN,Reginald 10/24/17 1756: Subjective Follow-up For: septic shock aspiration pneumonitis GNR urine Review of Systems Constitutional: Reports: see HPI. Objective Last 24 Hrs of Vital Signs/I&O Vital Signs Date Time Temp Pulse Resp B/P B/P Pulse O2 O2 Flow FiO2 Mean Ox Delivery Rate 10/24 1600 97 Nasal 2.0L Cannula 10/24 1416 97.0 75 20 112/60 97 Nasal 2.0L Cannula 10/24 1200 96 Nasal 2.0L Cannula 10/24 0659 97.5 82 20 100/62 98 Nasal 2.0L Cannula 10/24 0000 97 Nasal 2.0L Cannula 10/23 2300 97.7 70 22 90/60 96 Nasal 2.0L Cannula Intake & Output 10/24 1600 10/24 0800 10/24 0000 Intake Total 600 600 600 Output Total 200 150 225 Balance 400 450 375 Intake, IV 600 600 600 Number 1 Bowel Movements Output, Urine 200 150 225 Physical Exam General Appearance: lethargic, minimally responsive, 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 Cardiovascular: Normal S1, Normal S2, No Murmurs Lungs: Clear to Auscultation, Normal Air Movement Abdomen: Normal Bowel Sounds, Soft, No Tenderness, No Masses Extremities: +edema Current Medications: Current Medications Sig/Cedrick Start time Last Medication Dose Route Stop Time Status Admin Albuterol Sulfate 3 ML Q6PRN PRN 10/22 0330 10/22 INH 0323 Ceftazidime 1,000 MG Q24H 10/22 1545 10/24 IV 1616 Dextrose/Sodium 1,000 ML Q10H 10/22 1930 10/25 Chloride IV 0423 Glycopyrrolate 200 MCG ONE ONE 10/25 0530 DC 10/25 IV 10/25 0531 0531 Guaifenesin 10 ML Q4P PRN 10/25 0530 CAN PO Morphine Sulfate 2 MG Q2 PRN 10/23 1330 10/25 IV 0431 Pantoprazole Sodium 40 MG DAILY 10/22 1120 10/24 IV 1149 Scopolamine HBr 1 PAT Q72H 10/23 1300 10/23 TOP 1432 Vancomycin HCl 1,000 MG Q24H 10/22 1545 10/24 Dextrose/Water 250 ML IV 1616 Vitamin A/Vitamin D 1 ELIZABETH BID 10/22 1233 10/24 TOP 2041 Zinc Oxide 1 ELIZABETH BID 10/22 1234 10/24 TOP 1 Assessment/Plan Assessment: 77 year old gentleman with PMH: chronic back pain, a fib, CAD s/p CABG, HF, HTN, HLD, BPH, CKD, DM, hypothyroidism, Parkinson's Disease, Bladder mass admitted in the [facility] for septic shock Septic shock: Continue ceftazidime and vancomycin Continue morphine, scopolamine Continue D5-1/2NS DNR/DNI Continue IV antibiotics and fluids if patient worsens will transition to comfort measures Worsening leukocytosis and renal function, was on vasopressors yesterday YULIET [phone] or her land line: [phone]. Problem List: 1. Sepsis 2. Acute renal failure 3. Parkinson disease 4. COPD (chronic obstructive pulmonary disease) 5. Elevated troponin Pain Ratin Pain Location: n/a Pain Goal: Pain 4 or less Pain Plan: prn Tomorrow's Labs & Rationales: none Oksana Lyman MD 10/24/172048: Attending MD Review Statement Attending Statement Attending MD Statement: examined this patient, discuss w/resident/PA/RECRUITMENT DIRECTOR, agreed w/resident/PA/RECRUITMENT DIRECTOR, reviewed EMR data (avail) Attending Assessment/Plan: 77M PMH hronic back pain, a fib, CAD s/p CABG, HF, HTN, HLD, BPH, CKD, DM, hypothyroidism, Parkinson's Disease admitted initially to ICU with septic shock secondary to acute pyelonephritis with obstructive uropathy, BLAIR, metabolic derangement. Patient has been treated with broad spectrum antibiotics, no invasive procedures per family. Dr. Allen has had goals of care discussions with family and decision is for primarily comfort, may continue antibiotics and fluids, nothing invasive. Patient is non-verbal today, breathing comfortably, vitals stable, WBC rising. Plan - Continue on general medicine - Continue antibiotics - Continue IV fluids - Pain control - Continue goals of care discussions. Poor prognosis.
[2017-10-24 22:09] VITALS: BP 110/50
[2017-10-25 06:40] VITALS: BP 116/54
--- NOTE | 2017-10-25 07:04 | PN- Housestaff ---
See Addendum Subjective Follow-up For: urosepsis Subjective: somnolent, intermittently follow commands poor prognosis hospice eval pending Review of Systems Constitutional: Reports: see HPI. Objective Last 24 Hrs of Vital Signs/I&O Vital Signs Date Time Temp Pulse Resp B/P B/P Pulse O2 O2 Flow FiO2 Mean Ox Delivery Rate 10/25 0902 95 Nasal 2.0L Cannula 10/25 0640 98.1 74 24 116/54 95 Nasal 2.0L Cannula 10/25 0000 97 Nasal 2.0L Cannula 10/24 2209 97.1 75 24 110/50 97 10/24 1600 97 Nasal 2.0L Cannula 10/24 1416 97.0 75 20 112/60 97 Nasal 2.0L Cannula 10/24 1200 96 Nasal 2.0L Cannula Intake & Output 10/25 1600 10/25 0800 10/25 0000 Intake Total 600 600 Output Total 100 150 Balance 500 450 Intake, IV 600 600 Intake, Oral 0 Output, Urine 100 150 Physical Exam General Appearance: Moderate Distress, minimally responsive Cardiovascular: Regular Rate, Normal S1, Normal S2, No Murmurs Lungs: transmitted upper respiratory sounds Abdomen: Normal Bowel Sounds, Soft, No Tenderness, No Masses Extremities: upper extremity swelling, LLE dressing Current Medications: Current Medications Sig/Cedrick Start time Last Medication Dose Route Stop Time Status Admin Albuterol Sulfate 3 ML Q6PRN PRN 10/22 0330 AC 10/22 INH 0323 Ceftazidime 1,000 MG Q24H 10/22 1545 DC 10/24 IV 1616 Dextrose/Sodium 1,000 ML Q10H 10/22 1930 DC 10/25 Chloride IV 0423 Glycopyrrolate 200 MCG ONE ONE 10/25 0530 DC 10/25 IV 10/25 0531 0531 Guaifenesin 10 ML Q4P PRN 10/25 0530 CAN PO Lorazepam 0.5 MG Q2P PRN 10/25 0945 IV Morphine Sulfate 2 MG Q2 PRN 10/23 1330 AC 10/25 IV 0431 Pantoprazole Sodium 40 MG DAILY 10/22 1120 DC 10/24 IV 1149 Scopolamine HBr 1 PAT Q72H 10/23 1300 AC 10/23 TOP 1432 Vancomycin HCl 1,000 MG Q24H 10/22 1545 DC 10/24 Dextrose/Water 250 ML IV 1616 Vitamin A/Vitamin D 1 ELIZABETH BID 10/22 1233 AC 10/25 TOP 0921 Zinc Oxide 1 ELIZABETH BID 10/22 1234 AC 10/25 TOP 0921 Assessment/Plan Assessment: 77 year old gentleman with PMH: chronic back pain, a fib, CAD s/p CABG, HF, HTN, HLD, BPH, CKD, DM, hypothyroidism, Parkinson's Disease, Bladder mass admitted in the [facility] for septic shock Septic shock: CT abdomen showes hydronephrosis and nonobstructive stone with suspected bladder mass patient too unstable for TURBT and urological intervention, family deferrred on IR procedures No more lab draws, worsening leukocytosis Urine culture positive for E. coli Family contacted about patient's poor clinical condition and desire expressed for no aggressive interventions, intubation, invasive procedures at end of life. Discontinued antibiotics Code status changed to comfort measures only Continue morphine, ativan prn, and scopolamine Hospice evaluation pending Comfort measure only Daughter YULIET [phone] or her land line: [phone]. Problem List: 1. Dyspnea 2. Elevated troponin 3. Acute renal injury 4. BPH (benign prostatic hyperplasia) 5. Parkinson disease 6. COPD (chronic obstructive pulmonary disease) 7. CHF (congestive heart failure) 8. Sepsis Pain Ratin Pain Location: unable to assess Pain Goal: Pain 4 or less Pain Plan: comfort meds Tomorrow's Labs & Rationales: none
[2017-10-25 15:08] VITALS: BP 110/60
== END 2017-10-25 17:51 | disposition hospice, home (50) | DRG 871 ==
LOC: ERH 15:05 → 2NA 19:26 → ERHI 19:26 → CRI 19:26 → ENRESERV 20:04 → CRI 22:34 → 2NA 10-23 22:25
PROVIDERS: Dermatology; Internal Medicine; Internal Medicine Infectious Disease; Physician Assistant Medical
PROC: 30233N1 Transfusion of Nonautologous Red Blood Cells into Peripheral Vein, Percutaneous Approach (ICD-10-PCS; 2017-10-21)
PROC: 02HV33Z Insertion of Infusion Device into Superior Vena Cava, Percutaneous Approach (ICD-10-PCS; principal; 2017-10-22)
PROC: 5A09357 Assistance with Respiratory Ventilation, Less than 24 Consecutive Hours, Continuous Positive Airway Pressure (ICD-10-PCS; 2017-10-22)
DX: A41.9 Sepsis, unspecified organism (principal); G93.41 Metabolic encephalopathy; J69.0 Pneumonitis due to inhalation of food and vomit; K72.00 Acute and subacute hepatic failure without coma; I21.A1 Myocardial infarction type 2; J96.01 Acute respiratory failure with hypoxia; N17.0 Acute kidney failure with tubular necrosis; D62 Acute posthemorrhagic anemia; E11.22 Type 2 diabetes mellitus with diabetic chronic kidney disease; R65.21 Severe sepsis with septic shock; E87.2 Acidosis; E87.3 Alkalosis; E87.0 Hyperosmolality and hypernatremia; R64 Cachexia; N13.30 Unspecified hydronephrosis; N10 Acute pyelonephritis; I13.0 Hypertensive heart and chronic kidney disease with heart failure and stage 1 through stage 4 chronic kidney disease, or unspecified chronic kidney disease; E87.5 Hyperkalemia; E87.8 Other disorders of electrolyte and fluid balance, not elsewhere classified; G20 Parkinson's disease; I48.2 Chronic atrial fibrillation; E86.0 Dehydration; C67.9 Malignant neoplasm of bladder, unspecified; I50.9 Heart failure, unspecified; N18.3 Chronic kidney disease, stage 3 (moderate); F02.80 Dementia in other diseases classified elsewhere, unspecified severity, without behavioral disturbance, psychotic disturbance, mood disturbance, and anxiety; I35.0 Nonrheumatic aortic (valve) stenosis; Z51.5 Encounter for palliative care; R31.9 Hematuria, unspecified; E78.5 Hyperlipidemia, unspecified; L89.90 Pressure ulcer of unspecified site, unspecified stage; E03.9 Hypothyroidism, unspecified; Z66 Do not resuscitate; G89.29 Other chronic pain; M54.9 Dorsalgia, unspecified; N40.0 Benign prostatic hyperplasia without lower urinary tract symptoms; F32.9 Major depressive disorder, single episode, unspecified; M43.6 Torticollis; Z68.32 Body mass index [BMI] 32.0-32.9, adult; Z79.01 Long term (current) use of anticoagulants; I25.10 Atherosclerotic heart disease of native coronary artery without angina pectoris
CPT/HCPCS: 2NAP; CCU; 36415; 71045; 74176; 80307; 81001; 82436; 86920; 87040; 87070; 87086; 87804; 87804-59; 93005; 93010; 93306; 96361; 96365; 96375; 99233; 99291; J0610; J0696; J0713; J1815; J1940; J2270; J2920; J2930; J3370; J3490; J7040; J7042; J7060; P9016

== ENCOUNTER 2017-10-25 17:55 | Inpatient (IN) | payer OTHER ==
[~2017-10-25 17:55] MED LIST changes: +CARBIDOPA-LEVO1 EAC7 PO; +ENDOCET 10-3251 EACH PO; +MARINOL2.5 MG PO; +POTASSIUM CHLO20 ME3 PO
[2017-10-26 06:20] VITALS: BP 116/50
--- NOTE | 2017-10-26 11:00 | History & Physical ---
General Information and HPI History of Present Illness: 77M PMH hronic back pain, a fib, CAD s/p CABG, HF, HTN, HLD, BPH, CKD, DM, hypothyroidism, Parkinson's Disease admitted initially to ICU with septic shock secondary to acute pyelonephritis with obstructive uropathy, BLAIR, metabolic derangement. Patient has been treated with broad spectrum antibiotics, no invasive procedures per family. After discussions, decision was made to admit patient for hospice care. Patient is non-verbal, appears comfortable, and unable to participate in history. 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 Exam & Diagnostic Data Last 24 Hrs of Vital Signs/I&O Vital Signs Date Time Temp Pulse Resp B/P B/P Pulse O2 O2 Flow FiO2 Mean Ox Delivery Rate 10/26 0800 Non 2.0L ReBreather 10/26 0620 98.1 70 20 116/50 95 Nasal 2.0L Cannula 10/26 0000 Nasal 2.0L Cannula Intake & Output 10/26 1600 10/26 0800 10/26 0000 Intake Total Output Total 350 350 Balance -350 -350 Number 0 Bowel Movements Output, Urine 350 350 Physical Exam: AFVSS NAD, sleeping, does not appear diaphoretic or uncomfortable NCAT MMM RRR CTAB, quiet breathing Soft, NTND No c/c/e Pulses intact A&Ox0, no focal deficits Assessment/Plan Assessment: 77M PMH hronic back pain, a fib, CAD s/p CABG, HF, HTN, HLD, BPH, CKD, DM, hypothyroidism, Parkinson's Disease admitted initially to ICU with septic shock secondary to acute pyelonephritis with obstructive uropathy, BLAIR, metabolic derangement, admitted to hospice care. Plan - Morphine PRN - Ativan PRN - Rubinol PRN - Scopolamine patch - Skin and eye care - Will keep family updated
--- NOTE | 2017-10-26 14:35 | PN- Hospice ---
Subjective Subjective: Pt. is nonverbal. He has required morphine x 3 overnight, no ativan. Per MST, he is uncomfortable on position change, buttocks is excoriated and bleeding. He is not eating, silva catheter is draining clear, dk. yellow urine. Review of Systems Constitutional: Reports: see HPI. Objective Last 24 Hrs of Vital Signs/I&O Vital Signs Date Time Temp Pulse Resp B/P B/P Pulse O2 O2 Flow FiO2 Mean Ox Delivery Rate 10/26 1451 97.5 65 20 100/50 94 10/26 0800 Non 2.0L ReBreather 10/26 0620 98.1 70 20 116/50 95 Nasal 2.0L Cannula 10/26 0000 Nasal 2.0L Cannula Intake & Output 10/26 1600 10/26 0800 10/26 0000 Intake Total 0 Output Total 350 350 Balance 0 -350 -350 Intake, Oral 0 Number 0 Bowel Movements Output, Urine 350 350 Physical Exam General Appearance: Mildly restless, nonverbal, opens eyes spontaneously, audible tracheal secretions Head: normal appearance Ears, Nose, Throat: oral mucosa dry Respiratory: oxygen 2lnp, tracheal secretions, effort normal, no distress Cardiovascular: regular rate/rhythm Extremities: slight mottling R foot Current Medications: Current Medications Sig/Cedrick Start time Last Medication Dose Route Stop Time Status Admin Acetaminophen 650 MG Q4P PRN 10/25 181 AC WY Bisacodyl 10 MG DAILY NEEDED PRN 10/25 181 AC W[place] Glycerin/Mineral Oil 1 ELIZABETH Q8P PRN 10/25 181 AC TOP Glycopyrrolate 400 MCG Q4H 10/26 1445 AC IV Glycopyrrolate 400 MCG Q4P PRN 10/25 1815 DC SC Lorazepam 0.5 MG Q2 HRS NEEDED PRN 10/25 181 AC IV Morphine Sulfate 2 MG Q6 10/26 1434 AC IV Morphine Sulfate 2 MG Q2P PRN 10/25 1815 AC 10/26 IV 1159 Scopolamine HBr 1 PAT Q72H 10/25 1845 10/25 TOP 1959 Zinc Oxide 1 ELIZABETH BID 10/25 2200 10/26 TOP 1000 Assessment/Plan Hospice Assessment/Recommendations: 77 yo M with PMH chronic back pain, a fib, CAD s/p CABG, HF, HTN, HLD, BPH, CKD, DM, hypothyroidism, Parkinson's Disease and stage 4 bladder cancer admitted initially to ICU with septic shock secondary to acute pyelonephritis with obstructive uropathy, BLAIR, metabolic derangement, admitted to hospice care. For pain, schedule morphine 2mg IV every 6 hours ATC and continue when necessary morphine q2h. For skin, continue desitin, discussed with RN obtaining low air loss mattress. For congestion, schedule Robinul 400mcg IVevery 4 hrs, continue scopolamine.
[2017-10-26 14:51] VITALS: BP 100/50
[2017-10-26 22:34] VITALS: BP 154/86
[2017-10-27 06:30] VITALS: BP 104/50
--- NOTE | 2017-10-28 16:28 | Discharge Summary ---
Visit Information Visit Dates Admission Date: 10/25/17 Discharge Date: 10/27/17 Hospital Course Course Attending Physician: Minh Sagastume MD Primary Care Physician: Reginald Loredo MD Hospital Course: 77 yo M with PMH chronic back pain, a fib, CAD s/p CABG, HF, HTN, HLD, BPH, CKD, DM, hypothyroidism, Parkinson's Disease and stage 4 bladder cancer admitted initially to ICU with septic shock secondary to acute pyelonephritis with obstructive uropathy, BLAIR, metabolic derangement, admitted to hospice care. He was kept comfortable with morphine and ativan until he peacefully. Allergies: Coded Allergies: NO KNOWN ALLERGIES (03/11/12) Disposition Summary Disposition Principal Diagnosis: Sepsis Pyelonephritis Obstructive uropathy Bladder Cancer Additional Diagnosis: Acute kidney injury Discharge Disposition: Discharge Instructions General Discharge Information Code Status: Hospice Patient's Diet: N/A Patient's Activity: N/A Follow-Up Instructions/Appts: N/A Copies To: Reginald Loredo MD
== END 2017-10-27 09:40 | disposition expired | DRG 871 ==
LOC: 2NA 17:55
DX: A41.9 Sepsis, unspecified organism (principal); R65.21 Severe sepsis with septic shock; N17.9 Acute kidney failure, unspecified; N10 Acute pyelonephritis; I13.0 Hypertensive heart and chronic kidney disease with heart failure and stage 1 through stage 4 chronic kidney disease, or unspecified chronic kidney disease; G20 Parkinson's disease; I48.91 Unspecified atrial fibrillation; Z51.5 Encounter for palliative care; I25.10 Atherosclerotic heart disease of native coronary artery without angina pectoris; Z95.5 Presence of coronary angioplasty implant and graft; N40.0 Benign prostatic hyperplasia without lower urinary tract symptoms; E03.9 Hypothyroidism, unspecified; F02.80 Dementia in other diseases classified elsewhere, unspecified severity, without behavioral disturbance, psychotic disturbance, mood disturbance, and anxiety; N18.9 Chronic kidney disease, unspecified; J44.9 Chronic obstructive pulmonary disease, unspecified; M54.9 Dorsalgia, unspecified; M48.00 Spinal stenosis, site unspecified; F32.9 Major depressive disorder, single episode, unspecified; Z85.51 Personal history of malignant neoplasm of bladder; N13.9 Obstructive and reflux uropathy, unspecified; E11.22 Type 2 diabetes mellitus with diabetic chronic kidney disease; I50.9 Heart failure, unspecified
CPT/HCPCS: 2NAP